=== PATIENT | female | born 1940 | race Caucasian/White ===

== ENCOUNTER → 2017-07-26 07:46 | Outpatient (CLI) | payer MEDICARE, OTHER, SELFPAY ==
[2017-07-26 10:55] LABS: Cholesterol 200 mg/dL (200); High Density Lipoprotein 77 mg/dL; Triglycerides 105 mg/dL; Very Low Density Lipoprotein 21 mg/dL (5-40)
== END ==
PROVIDERS: Family Provider Family Medicine; PCP Family Medicine; Visit Provider Family Medicine
DX: E78.00 Pure hypercholesterolemia, unspecified (principal)
CPT/HCPCS: 36415; 80061

== ENCOUNTER → 2017-08-02 12:47 | Outpatient (CLI) | payer MEDICARE, OTHER, SELFPAY ==
--- NOTE | 2017-08-02 12:49 | BI_ITS ---
MAMMOGRAPHY - BILATERAL SCREENING REASON FOR EXAM: Female, 77 years old. Routine annual screening examination. PERTINENT HISTORY: Mother with breast cancer. TECHNIQUE: Digital bilateral breast david (3D mammographic acquisition) in the CC and MLO projections. 2-D mediolateral oblique (MLO) and craniocaudad (CC) views of both breasts were obtained. CAD: Full Field Digital Mammography with Computer Added Detection was performed. COMPARISON: Comparison is made with prior study dated May 30, 2014 and May 08, 2013. FINDINGS: Breast Composition: There are scattered areas of fibroglandular density. There are no dominant masses or suspicious calcifications. A tissue clip marker is once again seen in the upper outer aspect of the left breast. Stable residual nodular density at the biopsy site. No other significant abnormalities are identified. There has been no significant change since the prior study. BI/SCREENING MAMM (CAD), BILAT IMPRESSION: Stable bilateral screening mammogram. Yearly follow-up mammogram recommended. (A) ASSESSMENT CATEGORY: BIRADS Category 2: Benign. A letter regarding these results will be sent to the patient by the facility within 30 days. Approximately 10% of breast cancers are not detected by mammography. A normal mammogram should not delay biopsy of a clinically suspicious abnormality. [id number] Electronically Signed: Norman Martinez MD at 15:33 EDT Tel [phone], Service support ,
== END ==
PROVIDERS: Family Provider Family Medicine; PCP Family Medicine; Visit Provider Family Medicine
DX: Z12.31 Encounter for screening mammogram for malignant neoplasm of breast (principal)
CPT/HCPCS: 77063; 77067

== ENCOUNTER → 2018-07-25 07:40 | Outpatient (CLI) | payer MEDICARE, OTHER, SELFPAY ==
[2018-05-28 10:03] VITALS: BMI 22.6
[2018-07-25 10:07] LABS: Absolute Lymphocyte Count 1.67 X10^3/ul (0.83-4.51); Absolute Neutrophil Count 2.4 X10^3/uL (2.0-7.7); Basophil# 0.05 X10^3/uL; Basophil% 1.1 % (0-1); Eosinophils% 2.2 % (0-5); Hemoglobin 13.9 g/dl (12.0-15.0); Lymphocyte # 1.67 X10^3/ul (4.0); Mean Corp Hgb Conc 32.3 g/gl (32-36); Mean Corpuscular Hgb 31.3 pg (27.0-32.0); Mean Corpuscular Volume 96.8 fL (81-99); Mean Platelet Vol. 10.5 fl (6.2-12.0); Monocyte% 6.7 % (0-10); Neutrophil # 2.38 X10^3/uL (2.7-7.7); Neutrophil % 52.8 % (47-70); POSITIVE COUNT NO; POSITIVE DIFFERENTIAL NO; POSITIVE MORPHOLOGY NO; Platelet Count 292 K/mm3 (150-450); RBC Distribution Width CV 13.7 % (11.6-14.6); Red Blood Count 4.44 M/mm3 (4.2-5.4); White Blood Count 4.5 K/mm3 (4.4-11.0)
[2018-07-25 10:30] LABS: Vitamin D,25 Hydroxy 55.8 ng/mL (29.95-100.01)
[2018-07-25 10:34] LABS: Anion Gap 7 (5-15); BUN 18 mg/dL (7-18); BUN/Creat Ratio 22.8 RATIO (10-20); Chloride 106 mmol/L (98-107); Cholesterol 193 mg/dL (200); Creatinine, Serum 0.79 mg/dL (0.55-1.02); EST Glomerular Filtration Rate 75 mL/min (>60); Est Glom Filt Rate - Afr Amer 90 mL/min (>60); Glucose 88 mg/dL (74-106); High Density Lipoprotein 86 mg/dL; Potassium 4.2 mmol/L (3.5-5.1); Sodium Level 143 mmol/L (136-145); Triglycerides 65 mg/dL; Very Low Density Lipoprotein 13 mg/dL (5-40)
== END ==
PROVIDERS: Family Provider Family Medicine; PCP Family Medicine; Referring Provider Family Medicine; Visit Provider Family Medicine
DX: Z00.00 Encounter for general adult medical examination without abnormal findings (principal); E78.00 Pure hypercholesterolemia, unspecified
CPT/HCPCS: 36415; 80048; 80061; 82306; 85025

== ENCOUNTER 2018-10-02 01:58 | Emergency (ER) | payer MEDICARE, OTHER, SELFPAY ==
[2018-09-10 09:15] VITALS: BMI 22.6
[2018-10-02 02:00] VITALS: BP 152/86; PULSE 89; RESP 16; TEMP 36.9; O2SAT 98; BMI 22.6
--- NOTE | 2018-10-02 02:20 | RAD_ITS ---
STUDY: X-RAY CHEST REASON FOR EXAM: Female, 78 years old. Insomnia TECHNIQUE: 2 view COMPARISON: None. FINDINGS: The lungs are clear and expanded. There is no demonstrated pleural abnormality. Normal size heart. Normal mediastinum and hussein. Normal visualized pulmonary arteries. Normal visualized aortic arch and descending thoracic aorta. Normal visualized thoracic spine. Normal visualized ribs, clavicles, and shoulders. There is no demonstrated abnormality of the visualized soft tissue structures of the upper abdomen. RAD/Chest PA and Lateral IMPRESSION: Normal x-ray examination of the chest. No acute findings in the lungs Electronically Signed: Robinson Murray MD at 3:14 EDT Tel , Service support ,
--- NOTE | 2018-10-02 02:20 | EKG12_ITS ---
Test Reason : DYSRHYTHMIA Blood Pressure : / mmHG Vent. Rate : 078 BPM Atrial Rate : 078 BPM P-R Int : 198 ms QRS Dur : 070 ms QT Int : 356 ms P-R-T Axes : 063 036 032 degrees QTc Int : 405 ms Normal sinus rhythm Normal ECG Confirmed by DIOGO ELAM, MICHAEL ([id number]), city editor JESSE AWAD ([id number]) on 10/03/2018 11:58:29 AM Referred By: MELISSA Confirmed By:MICHAEL LIND MD
--- NOTE | 2018-10-02 02:22 | ED.VIS.GEN ---
History of Present Illness Chief Complaint: Other, Pain/Inj Narrative: Patient is an 78-year-old female who presents with multiple complaints. She states that last night after eating a BLT she has had a lot of belching. Tonight she had pain across her upper back and shoulder blades similar to prior episodes related to her fibromyalgia. She then developed some tremor and shaking. She complains of a dry mouth. While she was laying on her side she had some tingling in her feet. She denies any history of prior similar symptoms. She denies chest pain. She states she did feel a little lightheaded. She did not feel short of breath but states she felt like she needed to take a deep breath. Past Medical History - Allergies and Home Meds Allergies/Adverse Reactions: Allergies adhesive tape Allergy (Verified 10/02/18 02:06) Other CAUSES BLISTERING amoxicillin Adverse Reaction (Verified 10/02/18 02:06) Abd cramps/diarrhea dactinomycin Adverse Reaction (Verified 10/02/18 02:06) Abd cramps/diarrhea gabapentin Adverse Reaction (Verified 10/02/18 02:06) Abd cramps/diarrhea nortriptyline Adverse Reaction (Verified 10/02/18 02:06) Abd cramps/diarrhea pregabalin [From Lyrica] Adverse Reaction (Verified 10/02/18 02:06) Other VERY SLEEPY tramadol Adverse Reaction (Verified 10/02/18 02:06) Abd cramps/diarrhea Primary Care Physician: Roman Pulido MD [Primary Care Provider] - Past Medical History: - - High cholesterol, fibromyalgia, irritable bowel syndrome Surgical History: - - Right hip total arthroplasty, h/o left hip replacement 1 yr ago. Smoking Status: Former smoker Review of Systems All systems negative except as indicated General: Denies: Fever Cardiovascular: Denies: Chest pain Respiratory: Denies: Dyspnea Gastrointestinal: Denies: Nausea, Vomiting Musculoskeletal: Reports: Neck pain, Back pain Physical Exam Vital Signs/Narrative: Vital Signs Temp Pulse Resp BP Pulse Ox 10/02/18 02:00 98.5 F 89 16 152/86 H 98 General: Well nourished Head: Normocephalic Eyes: EOMI ENT: Moist mucous membranes Neck: Supple Cardiovascular: Regular rate, Regular rhythm Respiratory: No distress, CTA bilaterally Abdomen: Soft, Nontender Skin: Normal color Neurological: Alert, Normal Strength, Normal Sensation Psychological: Normal affect Diagnostic/Tx/Re-eval Impressions Chest X-Ray 10/02/18 02:20 IMPRESSION: Normal x-ray examination of the chest. No acute findings in the lungs Electronically Signed: Robinson Murray MD at 3:14 EDT Tel , Service support , 10/02/18 02:20 Chest PA and Lateral [RAD] Stat Laboratory Results 10/02/18 10/02/18 02:05 02:05 WBC 7.4 RBC 4.66 Hgb 14.7 Hct 45.0 MCV 96.6 MCH 31.5 MCHC 32.7 RDW Std Deviation 48.2 H RDW Coeff of Orqu[place] 13.5 Plt Count 308 MPV 10.2 Immature Gran % (Auto) 0.100 Neut % (Auto) 50.1 Lymph % (Auto) 39.9 Power % (Auto) 7.7 Eos % (Auto) 1.5 Baso % (Auto) 0.7 Absolute Neuts (auto) 3.7 Absolute Lymphs (auto) 2.94 Nucleated RBC % 0 Sodium 142 Potassium 3.8 Chloride 108 H Carbon Dioxide 28.0 Anion Gap 6 BUN 19 H Creatinine 0.88 Estim Creat Clear Calc 47.73 Est GFR (MDRD) Af Amer 79 Est GFR (MDRD) Non-Af 66 BUN/Creatinine Ratio 21.6 H Glucose 114 H Calcium 9.0 Troponin I < 0.015 - Medical Decision Making EKG shows normal sinus rhythm at a rate of 78 with no acute ischemic changes, normal intervals, normal axis. Labs are unremarkable, negative troponin. Chest x-ray is normal. Patient presented with vague complaints. She does not appear to have acute serious life-threatening or surgical pathology. Some of her symptoms may be related to anxiety. She was advised to follow-up with her primary care physician. She understands return for new or worsening symptoms. She was discharged. ED Disposition - Plan for ED Patient: Disposition: Home or Assisted Living Diagnosis: Back pain, Tremor Instructions: BACK PAIN (Acute or Chronic), Paraesthesias Referrals: Roman Pulido MD [Primary Care Provider] -
[2018-10-02 02:28] LABS: Absolute Lymphocyte Count 2.94 X10^3/uL (0.83-4.51); Absolute Neutrophil Count 3.7 X10^3/uL (2.0-7.7); Basophil# 0.05 X10^3/uL; Basophil% 0.7 % (0-1); Eosinophil# 0.11 X10^3/uL; Eosinophils% 1.5 % (0-5); Hemoglobin 14.7 g/dL (12.0-15.0); Lymphocyte # 2.94 X10^3/ul (4.0); Lymphocyte % 39.9 % (19-41); Mean Corp Hgb Conc 32.7 g/dL (32-36); Mean Corpuscular Hgb 31.5 pg (27.0-32.0); Mean Corpuscular Volume 96.6 fL (81-99); Mean Platelet Vol. 10.2 fl (6.2-12.0); Monocyte# 0.57 X10^3/uL; Monocyte% 7.7 % (0-10); NRBC Flagged by Analyzer 0 % (0-5); Neutrophil # 3.68 X10^3/uL (2.7-7.7); Neutrophil % 50.1 % (47-70); Platelet Count 308 K/mm3 (150-450); RBC Distribution Width CV 13.5 % (11.6-14.6); RBC Distribution Width SD 48.2 fl (35.1-43.9); Red Blood Count 4.66 M/mm3 (4.2-5.4); White Blood Count 7.4 K/mm3 (4.4-11.0)
[2018-10-02] MEDS: Mag Hydrox/Al Hydrox/Simeth 30 ML UDC PO (02:28)
[2018-10-02 02:30] VITALS: BP 163/92; PULSE 85; O2SAT 97
[2018-10-02 02:39] LABS: Anion Gap 6 (5-15); BUN 19 mg/dL (7-18); BUN/Creat Ratio 21.6 RATIO (10-20); Chloride 108 mmol/L (98-107); Creatinine, Serum 0.88 mg/dL (0.55-1.02); EST Glomerular Filtration Rate 66 mL/min (>60); Est Glom Filt Rate - Afr Amer 79 mL/min (>60); Estimated Creatinine Clearance 47.73 ml/min; Glucose 114 mg/dL (74-106); Potassium 3.8 mmol/L (3.5-5.1); Sodium Level 142 mmol/L (136-145)
[2018-10-02 03:46] VITALS: BP 164/80; PULSE 84; RESP 18; O2SAT 98
== END 2018-10-02 03:47 | disposition home or self-care (01) ==
PROVIDERS: Emergency Provider Emergency Medicine; Family Provider Family Medicine; PCP Family Medicine
DX: M54.9 Dorsalgia, unspecified (principal); M54.2 Cervicalgia; R25.1 Tremor, unspecified; E78.00 Pure hypercholesterolemia, unspecified; K58.9 Irritable bowel syndrome, unspecified; M79.7 Fibromyalgia; R42 Dizziness and giddiness; R68.2 Dry mouth, unspecified; Z79.899 Other long term (current) drug therapy; Z88.0 Allergy status to penicillin; Z88.8 Allergy status to other drugs, medicaments and biological substances; Z87.891 Personal history of nicotine dependence
CPT/HCPCS: 71046; 80048; 84484; 85025; 93005; 99285; A4216

== ENCOUNTER → 2019-07-31 08:00 | Outpatient (CLI) | payer MEDICARE, OTHER, SELFPAY ==
[2019-07-31 10:39] LABS: Vitamin D,25 Hydroxy 76.6 ng/mL
[2019-07-31 10:46] LABS: ALB/GLOB Ratio 1.1 RATIO (0.9-2.4); AST(SGOT) 19 U/L (15-37); Alanine Aminotransfer ALT/SGPT 20 U/L (13-56); Albumin, Serum 3.5 g/dL (3.2-5.0); Alkaline Phosphatase 84 U/L (45-117); Anion Gap 3 (5-15); BUN 18 mg/dL (7-18); BUN/Creat Ratio 22.4 RATIO (10-20); Calcium,Total 9.1 mg/dL (8.5-10.1); Chloride 106 mmol/L (98-107); Cholesterol 199 mg/dL (200); EST Glomerular Filtration Rate 73 mL/min (>60); Est Glom Filt Rate - Afr Amer 88 mL/min (>60); Globulin 3.3 g/dL (2.2-4.2); Glucose 90 mg/dL (74-106); High Density Lipoprotein 83 mg/dL; Potassium 4.1 mmol/L (3.5-5.1); Protein, Total 6.8 g/dL (6.4-8.2); Sodium Level 141 mmol/L (136-145); Triglycerides 103 mg/dL; Very Low Density Lipoprotein 21 mg/dL (5-40)
== END ==
PROVIDERS: PCP Family Medicine; Referring Provider Family Medicine; Visit Provider Family Medicine
DX: E78.00 Pure hypercholesterolemia, unspecified (principal); E55.9 Vitamin D deficiency, unspecified; R42 Dizziness and giddiness
CPT/HCPCS: 36415; 80053; 80061; 82306

== ENCOUNTER → 2019-08-14 08:42 | Outpatient (CLI) | payer MEDICARE, OTHER, SELFPAY ==
--- NOTE | 2019-08-14 08:52 | BD_ITS ---
STUDY: DUAL ENERGY X-RAY ABSORPTIOMETRY / DXA REASON FOR EXAM: Female, 79 years old. 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 COMPARISON: None. FINDINGS: Right Forearm: g/cm2 (0.621) / T-score (-3.0) / Z-score (-0.2) Left Forearm: g/cm2 (0.615) / T-score (minus 3.) / Z-score (-0.2) BD/Dexa Bone Density/Append Skel IMPRESSION: The patient is considered osteoporotic as outlined below according to World [place] Organization (WHO) criteria with a high fracture risk. Reference Information: The T-score is the number of standard deviations above or below the standard which is normal for young adults at their peak bone mineral density. The World Health Organization (WHO) interprets the T-scores as follows: Above -1 Normal bone density Between -1 and -2.5 Osteopenia Equal to / or below -2.5 Osteoporosis As a practical clinical guideline, osteopenia may be graded as follows: Mild -1 through -1.5 Moderate -1.6 through -2.0 Severe -2.1 through -2.4 The Z-score is the number of standard deviations above or below age-matched controls. A Z-score of less than -1.5 would be considered abnormal. References: 1. NIH Osteoporosis and Related Bone Diseases http://www.osteo.org 2. International Society for Clinical Densitometry http://www.iscd.org 3. National Osteoporosis Foundation http://www.nof.org Electronically Signed: Norman Martinez, at 13:35 EDT , Service support ,
== END ==
PROVIDERS: PCP Family Medicine; Referring Provider Family Medicine; Visit Provider Family Medicine
DX: Z00.00 Encounter for general adult medical examination without abnormal findings (principal); M81.0 Age-related osteoporosis without current pathological fracture; Z78.0 Asymptomatic menopausal state
CPT/HCPCS: 77081

== ENCOUNTER 2020-03-06 11:59 | Outpatient (RCR) | payer MEDICARE, OTHER, SELFPAY | END 2020-03-06 23:59 | LOC: IMMUN 11:59 | PROVIDERS: PCP Family Medicine; Visit Provider Family Medicine | DX: Z23 Encounter for immunization (principal) | CPT/HCPCS: 0011A; 0012A; 91301 ==

== ENCOUNTER 2020-06-01 09:41 | Emergency (ER) | payer MEDICARE, OTHER, SELFPAY ==
[2020-06-01 09:44] VITALS: BP 180/71; PULSE 80; RESP 16; TEMP 36.7; O2SAT 98; BMI 22.3
[2020-06-01 10:06] VITALS: BP 148/77; BP 161/90; BP 170/83; PULSE 83; PULSE 86; PULSE 92
--- NOTE | 2020-06-01 10:25 | CT_ITS ---
STUDY: CT BRAIN WITHOUT CONTRAST REASON FOR EXAM: Female, 80 years old. Dizziness RADIATION DOSAGE (If Supplied By Facility): CTDIvol = ( 44.99 ) mGy, DLP = ( 796.11 ) mGycm TECHNIQUE: Transaxial CT imaging of the brain was performed without administration of intravenous contrast material. Individualized dose optimization techniques were used for this CT. COMPARISON: No relevant priors. FINDINGS: Normal soft tissue structures. Normal calvarium. There is mild cerebral atrophy with widening of the extra-axial spaces and ventricular dilatation. There are areas of decreased attenuation within the white matter tracts of the supratentorial brain, consistent with microvascular disease changes. There are small punctate calcifications of the basal ganglia which are seen in the aging brain as a normal variant. Old lacunar infarct in the left thalamus. Normal brainstem. Normal cerebellum. There is no intracranial hemorrhage. There are no findings of an acute ischemic infarction. Atherosclerotic calcification of the cavernous portion of the internal carotid arteries bilaterally. Normal visualized paranasal sinuses. CT/Brain/Head without Contrast IMPRESSION: Chronic involutional changes of the brain. Electronically Signed: Norman Martinez MD at 11:58 EDT , Service support ,
--- NOTE | 2020-06-01 10:25 | EKG12_ITS ---
Test Reason : DIZZINESS Blood Pressure : / mmHG Vent. Rate : 075 BPM Atrial Rate : 075 BPM P-R Int : 200 ms QRS Dur : 084 ms QT Int : 350 ms P-R-T Axes : 069 029 058 degrees QTc Int : 390 ms Normal sinus rhythm Nonspecific ST and T wave abnormality Abnormal ECG Confirmed by DIOGO ELAM, MICHAEL ([id number]), content editor JESSE AWAD ([id number]) on 06/03/2020 8:59:31 AM Referred By: KENDRA/CECY Confirmed By:MICHAEL LIND MD
--- NOTE | 2020-06-01 10:27 | ED.DCSUM_ITS ---
History of Present Illness Chief Complaint: Dizziness Informant: Patient Narrative: 80-year-old female states she went to bed last night in her normal state of health. When she woke this morning she rolled over onto her side and open her eyes and noted that her vision seemed blurry. She closed her eyes and waited about 20 minutes. She got up and walked to the bathroom she states at one point she got lightheaded. She went and ate breakfast would have seconds of the sensation of lightheadedness. At the current time she feels cold. She states she has had problems with circulation in her hands and her feet recently and typically has to wear gloves very early in the fall season. She denies any headache. She denies any ataxia. No current visual changes. No arm or leg weakness or sensory changes - Past Medical History (1) Dyslipidemia Status: Chronic (2) GERD (gastroesophageal reflux disease) Status: Chronic Past Medical History - Allergies and Home Meds Allergies/Adverse Reactions: Allergies adhesive tape Allergy (Verified 06/01/20 09:48) Other CAUSES BLISTERING cefdinir Allergy (Verified 06/01/20 09:51) Other acetaminophen [From Vicodin] Adverse Reaction (Verified 06/01/20 09:51) Other DIZZINESS amoxicillin Adverse Reaction (Verified 06/01/20 09:48) Abd cramps/diarrhea dactinomycin Adverse Reaction (Verified 06/01/20 09:48) Abd cramps/diarrhea gabapentin Adverse Reaction (Verified 06/01/20 09:48) Abd cramps/diarrhea hydrocodone [From Vicodin] Adverse Reaction (Verified 06/01/20 09:51) Other DIZZINESS nortriptyline Adverse Reaction (Verified 06/01/20 09:48) Abd cramps/diarrhea pregabalin [From Lyrica] Adverse Reaction (Verified 06/01/20 09:48) Other VERY SLEEPY tramadol Adverse Reaction (Verified 06/01/20 09:48) Abd cramps/diarrhea Primary Care Physician: Joe Rousseau MD [Primary Care Provider] - 1-2 Days if not improving Surgical History: - - Right hip total arthroplasty, h/o left hip replacement 1 yr ago. Smoking Status: Never smoker Drugs: None Review of Systems General: Denies: Chills, Fever, Sweats Eyes: Reports: Blurred Vision - bilaterally. Denies: Visual changes - bilaterally, Diplopia ENT: Denies: Rhinorrhea, Sore throat Cardiovascular: Denies: Chest pain, Palpitations Respiratory: Denies: Dyspnea, Cough, Dyspnea on exertion Gastrointestinal: Reports: - - Increased belching. Denies: Abdominal pain, Nausea, Vomiting, Diarrhea, Melena, Hematochezia Genitourinary: Denies: Dysuria, Hematuria, Frequency Musculoskeletal: Denies: Back pain, Extremity Pain Skin: Denies: Rash, Wounds Neurological: Reports: - - Lightheadedness. Denies: Headache, Weakness, Numbness Physical Exam Vital Signs/Narrative: Vital Signs Temp Pulse Pulse Pulse Pulse Resp BP 06/01/20 10:06 83 86 92 06/01/20 09:44 98.0 F 80 16 180/71 H BP BP BP Pulse Ox 06/01/20 10:06 148/77 H 161/90 H 170/83 H 06/01/20 09:44 98 Inital Vital Signs reviewed: Yes General: Well nourished, Well developed, No Acute Distress Head: Normocephalic, Atraumatic Eyes: Perrl, EOMI ENT: Moist mucous membranes, No rhinorrhea Neck: Supple, Nontender Cardiovascular: Regular rate, Regular rhythm, No murmurs Respiratory: No distress, CTA bilaterally, Chest nontender Abdomen: Soft, Nontender, Nondistended, Normal bowel sounds Back: Nontender, Normal Inspection Extremities: Nontender, No edema Skin: Normal color, No rash Neurological: Alert, Oriented x3, Cranial nerves II-XII grossly intact, Normal Strength, Normal Sensation, - - NIH of 0. Very normal hspdlh-vw-wonh and heel mcnair Psychological: Normal affect, Normal Mood Diagnostic/Tx/Re-eval Clinical Impression(s) from Imaging Studies Brain CT 06/01/20 10:25 IMPRESSION: Chronic involutional changes of the brain. Electronically Signed: Norman Martinez MD at 11:58 EDT , Service support , Chest X-Ray 06/01/20 11:27 IMPRESSION: Hyperinflation. Electronically Signed: Norman Martinez MD at 11:59 EDT , Service support , Laboratory Last Values WBC 6.7 K/mm3 (4.4-11.0) 06/01/20 10:00 RBC 4.58 M/mm3 (4.2-5.4) 06/01/20 10:00 Hgb 14.8 g/dL (12.0-15.0) 06/01/20 10:00 Hct 45.3 % (37-47) 06/01/20 10:00 MCV 98.9 fL (81-99) 06/01/20 10:00 MCH 32.3 pg (27.0-32.0) H 06/01/20 10:00 MCHC 32.7 g/dL (32-36) 06/01/20 10:00 RDW Std Deviation 49.1 fl (35.1-43.9) H 06/01/20 10:00 RDW Coeff of [place]qu[place] 13.3 % (11.6-14.6) 06/01/20 10:00 Plt Count 322 K/mm3 (150-450) 06/01/20 10:00 MPV 10.6 fl (6.2-12.0) 06/01/20 10:00 Immature Gran % (Auto) 0.300 % (0.0-0.9) 06/01/20 10:00 Neut % (Auto) 75.2 % (47-70) H 06/01/20 10:00 Lymph % (Auto) 17.6 % (19-41) L 06/01/20 10:00 [place] % (Auto) 5.2 % (0-10) 06/01/20 10:00 Eos % (Auto) 1.3 % (0-5) 06/01/20 10:00 Baso % (Auto) 0.4 % (0-1) 06/01/20 10:00 Absolute Neuts (auto) 5.0 X10^3/uL (2.0-7.7) 06/01/20 10:00 Absolute Lymphs (auto) 1.18 X10^3/uL (0.83-4.51) 06/01/20 10:00 Nucleated RBC % 0 % (0-5) 06/01/20 10:00 Sodium 140 mmol/L (136-145) 06/01/20 10:00 Potassium 4.0 mmol/L (3.5-5.1) 06/01/20 10:00 Chloride 104 mmol/L (98-107) 06/01/20 10:00 Carbon Dioxide 32.0 mmol/L (21.0-32.0) 06/01/20 10:00 Anion Gap 4 (5-15) L 06/01/20 10:00 BUN 18 mg/dL (7-18) 06/01/20 10:00 Creatinine 0.83 mg/dL (0.55-1.02) 06/01/20 10:00 Estim Creat Clear Calc 48.92 ml/min 06/01/20 10:00 Est GFR (MDRD) Af Amer 85 mL/min (>60) 06/01/20 10:00 Est GFR (MDRD) Non-Af 70 mL/min (>60) 06/01/20 10:00 BUN/Creatinine Ratio 21.7 RATIO (10-20) H 06/01/20 10:00 Glucose 117 mg/dL (74-106) H 06/01/20 10:00 Calcium 9.3 mg/dL (8.5-10.1) 06/01/20 10:00 Total Bilirubin 0.40 mg/dL (0.20-1.00) 06/01/20 10:00 AST 18 U/L (15-37) 06/01/20 10:00 ALT 20 U/L (13-56) 06/01/20 10:00 Alkaline Phosphatase 89 U/L (45-117) 06/01/20 10:00 Troponin I < 0.015 ng/mL (<0.045) 06/01/20 10:00 Total Protein 7.0 g/dL (6.4-8.2) 06/01/20 10:00 Albumin 3.6 g/dL (3.2-5.0) 06/01/20 10:00 Globulin 3.4 g/dL (2.2-4.2) 06/01/20 10:00 Albumin/Globulin Ratio 1.1 RATIO (0.9-2.4) 06/01/20 10:00 Urine Color Yellow (Yellow) 06/01/20 11:22 Urine Clarity Clear (Clear) 06/01/20 11:22 Urine pH 6.0 (5.0 - 8.0) 06/01/20 11:22 Ur Specific [place] 1.010 (1.002-1.030) 06/01/20 11:22 Urine Protein Negative mg/dl (Negative) 06/01/20 11:22 Urine Glucose (UA) Normal mg/dl (Normal) 06/01/20 11:22 Urine Ketones Negative mg/dl (Negative) 06/01/20 11:22 Urine Occult Blood Negative /ul (Negative) 06/01/20 11:22 Urine Nitrite Negative (Negative) 06/01/20 11:22 Urine Bilirubin Negative mg/dL (Negative) 06/01/20 11:22 Urine Urobilinogen Normal mg/dl (Normal) 06/01/20 11:22 Ur Leukocyte Esterase 25 /ul (Negative) H 06/01/20 11:22 Urine RBC 0 SEEN /hpf (0-5) 06/01/20 11:22 Urine WBC 0-5 SEEN /hpf (0-5) 06/01/20 11:22 Ur Squamous Epith Cells 0 SEEN /hpf (5-10) 06/01/20 11:22 Urine Bacteria 0 SEEN /hpf (None Seen) 06/01/20 11:22 Urine Mucus 0 SEEN /hpf (<or=2+) 06/01/20 11:22 - EKG Initial EKG Interpretation: Sinus Rhythm - EKG demonstrates a normal sinus rhythm at a rate of 75. No concerning features of ACS or ectopy noted - Medical Decision Making Patient states that coming off the CT table when she sat up she suddenly got dizzy again but again it only lasted a couple seconds. States she continues to feel chilled. The patient also states that she walked to the bathroom when she put her head down she got dizzy/lightheaded but again only for a second or 2. She received Antivert she ambulated again to the bathroom without any significant difficulty. At this point her symptoms are very transient. I do not see anything on her work-up. I think she is safe for discharge. ED Disposition - Plan for ED Patient: Disposition: Home or Assisted Living Diagnosis: Light-headed feeling Instructions: ED Dizziness, Uncertain Cause Prescriptions: Meclizine HCl [Antivert] 25 mg PO TID PRN PRN #12 tablet PRN Reason: Dizziness Prescription Printed Referrals: Joe Rousseau MD [Primary Care Provider] - 1-2 Days if not improving
[2020-06-01 10:49] LABS: Absolute Lymphocyte Count 1.18 X10^3/uL (0.83-4.51); Basophil# 0.03 X10^3/uL; Basophil% 0.4 % (0-1); Eosinophil# 0.09 X10^3/uL; Eosinophils% 1.3 % (0-5); Hematocrit 45.3 % (37-47); Hemoglobin 14.8 g/dL (12.0-15.0); Lymphocyte # 1.18 X10^3/ul (0.83-4.51); Lymphocyte % 17.6 % (19-41); Mean Corp Hgb Conc 32.7 g/dL (32-36); Mean Corpuscular Hgb 32.3 pg (27.0-32.0); Mean Corpuscular Volume 98.9 fL (81-99); Mean Platelet Vol. 10.6 fl (6.2-12.0); Monocyte# 0.35 X10^3/uL; Monocyte% 5.2 % (0-10); NRBC Flagged by Analyzer 0 % (0-5); Neutrophil # 5.03 X10^3/uL (2.7-7.7); Neutrophil % 75.2 % (47-70); Platelet Count 322 K/mm3 (150-450); RBC Distribution Width CV 13.3 % (11.6-14.6); RBC Distribution Width SD 49.1 fl (35.1-43.9); Red Blood Count 4.58 M/mm3 (4.2-5.4); White Blood Count 6.7 K/mm3 (4.4-11.0)
[2020-06-01 11:10] LABS: ALB/GLOB Ratio 1.1 RATIO (0.9-2.4); AST(SGOT) 18 U/L (15-37); Alanine Aminotransfer ALT/SGPT 20 U/L (13-56); Albumin, Serum 3.6 g/dL (3.2-5.0); Alkaline Phosphatase 89 U/L (45-117); Anion Gap 4 (5-15); BUN 18 mg/dL (7-18); BUN/Creat Ratio 21.7 RATIO (10-20); Calcium,Total 9.3 mg/dL (8.5-10.1); Chloride 104 mmol/L (98-107); Creatinine, Serum 0.83 mg/dL (0.55-1.02); EST Glomerular Filtration Rate 70 mL/min (>60); Est Glom Filt Rate - Afr Amer 85 mL/min (>60); Estimated Creatinine Clearance 48.92 ml/min; Globulin 3.4 g/dL (2.2-4.2); Glucose 117 mg/dL (74-106); Sodium Level 140 mmol/L (136-145)
[2020-06-01 11:25] LABS: Bacteria 0 SEEN /hpf (None Seen); Mucous, Urine 0 SEEN /hpf (<or=2+); Red Blood Cells-Urine 0 SEEN /hpf (0-5); Squamous Epithelial Cells - UA 0 SEEN /hpf (5-10)
--- NOTE | 2020-06-01 11:27 | RAD_ITS ---
STUDY: X-RAY CHEST REASON FOR EXAM: Female, 80 years old. Dizziness TECHNIQUE: Single AP portable view of the chest. COMPARISON: Comparison is made with prior study dated 10/02/2018. FINDINGS: EKG electrodes are seen. Hyperinflation. The lungs are clear. There is no demonstrated pleural abnormality. Normal size heart. Normal mediastinum and hussein. Normal visualized pulmonary arteries. Normal visualized aortic arch and descending thoracic aorta. Normal visualized thoracic spine. There is degenerative osteoarthritis of the bilateral shoulders. There is no demonstrated abnormality of the visualized soft tissue structures of the upper abdomen. RAD/Chest 1 View (Portable) IMPRESSION: Hyperinflation. Electronically Signed: Norman Martinez MD at 11:59 EDT , Service support ,
[2020-06-01 11:30] LABS: Color, Urine Yellow (Yellow); Glucose, Dipstick Normal (Normal); Ketone-Dipstick Negative (Negative); Leukocyte Esterase-Dipstick 25 /ul (Negative); Nitrite-Dipstick Negative (Negative); Occult Blood-Urine Negative /ul (Negative); Protein-Dipstick Negative (Negative); Urine Bilirubin Dipstick Negative (Negative); Urine Clarity Clear (Clear); Urine Urobilinogen Normal (Normal)
[2020-06-01 11:37] LABS: White Blood Cells 0-5 SEEN /hpf (0-5)
[2020-06-01 12:25] VITALS: BP 158/72; PULSE 78; RESP 18; O2SAT 100
[2020-06-01] MEDS: Meclizine HCl 25 MG Tablet PO (12:57)
[2020-06-01 14:49] VITALS: BP 146/70; PULSE 85; RESP 18; O2SAT 98
[2020-06-01 15:35] VITALS: BP 148/71; PULSE 74; RESP 18
== END 2020-06-01 15:40 | disposition home or self-care (01) ==
PROVIDERS: Emergency Provider Emergency Medicine; PCP Family Medicine
DX: R42 Dizziness and giddiness (principal); E78.5 Hyperlipidemia, unspecified; Z79.899 Other long term (current) drug therapy
CPT/HCPCS: 70450; 71045; 80053; 81001; 84484; 85025; 93005; 99285; A4216

== ENCOUNTER → 2020-07-30 08:06 | Outpatient (CLI) | payer MEDICARE, OTHER, SELFPAY ==
[2020-07-30 10:20] LABS: Vitamin D,25 Hydroxy 67.7 ng/mL
[2020-07-30 10:29] LABS: Anion Gap 5 (5-15); BUN 22 mg/dL (7-18); BUN/Creat Ratio 26.5 RATIO (10-20); Calcium,Total 8.9 mg/dL (8.5-10.1); Chloride 105 mmol/L (98-107); Cholesterol 221 mg/dL (200); Creatinine, Serum 0.83 mg/dL (0.55-1.02); EST Glomerular Filtration Rate 70 mL/min (>60); Est Glom Filt Rate - Afr Amer 85 mL/min (>60); Glucose 89 mg/dL (74-106); High Density Lipoprotein 87 mg/dL; Potassium 3.7 mmol/L (3.5-5.1); Sodium Level 141 mmol/L (136-145); Triglycerides 85 mg/dL; Very Low Density Lipoprotein 17 mg/dL (5-40)
== END ==
PROVIDERS: PCP Family Medicine; Referring Provider Family Medicine; Visit Provider Family Medicine
DX: E78.00 Pure hypercholesterolemia, unspecified (principal); E55.9 Vitamin D deficiency, unspecified
CPT/HCPCS: 36415; 80048; 80061; 82306

== ENCOUNTER → 2020-10-09 | Outpatient (CLI) | payer MEDICARE, OTHER, SELFPAY ==
[2020-10-09 15:32] LABS: Bacteria 0 SEEN /hpf (None Seen); Mucous, Urine 0 SEEN /hpf (<or=2+); Red Blood Cells-Urine 0 SEEN /hpf (0-5); Squamous Epithelial Cells - UA 0 SEEN /hpf (5-10); White Blood Cells 0 SEEN /hpf (0-5)
[2020-10-09 15:49] LABS: Color, Urine Yellow (Yellow); Glucose, Dipstick Normal (Normal); Ketone-Dipstick Negative (Negative); Leukocyte Esterase-Dipstick Negative /ul (Negative); Nitrite-Dipstick Negative (Negative); Occult Blood-Urine Negative /ul (Negative); Protein-Dipstick Negative (Negative); Urine Bilirubin Dipstick Negative (Negative); Urine Clarity Clear (Clear); Urine Urobilinogen Normal (Normal)
== END | disposition home or self-care (01) ==
PROVIDERS: PCP Family Medicine; Visit Provider Physician Assistant Surgical
DX: R53.81 Other malaise (principal)
CPT/HCPCS: 81001; 87086; 87088

== ENCOUNTER → 2020-11-12 13:20 | Outpatient (CLI) | payer MEDICARE, OTHER, SELFPAY ==
--- NOTE | 2020-11-12 13:22 | BI_ITS ---
MAMMOGRAPHY - BILATERAL SCREENING 3-D TOMOSYNTHESIS REASON FOR EXAM: Female, 80 years old. SCREENING PERTINENT HISTORY: No significant family history. TECHNIQUE: 2-D mammograms and 3-D Tomosynthesis of the breast (s) were performed. CAD was performed. COMPARISON: 08/02/2017 FINDINGS: The breast composition is composed of scattered fibroglandular density. Scattered benign calcifications are seen. No dense spiculated masses or suspicious microcalcifications are identified. No architectural distortion is identified. There is no skin thickening or retraction. There has been no significant change since the prior study. BI/SCRN MAMM (CAD)W/NICK BILAT IMPRESSION: No mammographic signs of malignancy. Routine yearly mammograms recommended. ASSESSMENT CATEGORY: BIRADS Category 1: Negative. A letter regarding these results will be sent to the patient by the facility within 30 days. FOLLOW UP RECOMMENDATION: Yearly follow up mammogram recommended. (A) Approximately 10% of breast cancers are not detected by mammography. A normal mammogram should not delay biopsy of a clinically suspicious abnormality. Electronically Signed: Luis Barrios MD at 18:19 EDT Tel , Service support ,
== END ==
PROVIDERS: PCP Family Medicine; Referring Provider Family Medicine; Visit Provider Family Medicine
DX: Z12.31 Encounter for screening mammogram for malignant neoplasm of breast (principal)
CPT/HCPCS: 77063; 77067

== ENCOUNTER 2021-02-10 08:07 | Outpatient (CLI) | payer MEDICARE, OTHER, SELFPAY ==
[2021-02-10 10:33] LABS: AST(SGOT) 18 U/L (15-37); Alanine Aminotransfer ALT/SGPT 21 U/L (13-56); Albumin, Serum 3.5 g/dL (3.2-5.0); Alkaline Phosphatase 68 U/L (45-117); Anion Gap 7 (5-15); BUN 18 mg/dL (7-18); Calcium,Total 9.1 mg/dL (8.5-10.1); Chloride 105 mmol/L (98-107); Cholesterol 212 mg/dL (200); Creatinine, Serum 0.78 mg/dL (0.55-1.02); EST Glomerular Filtration Rate 75 mL/min (>60); Est Glom Filt Rate - Afr Amer 91 mL/min (>60); Globulin 3.5 g/dL (2.2-4.2); Glucose 94 mg/dL (74-106); High Density Lipoprotein 92 mg/dL; Sodium Level 142 mmol/L (136-145); Triglycerides 65 mg/dL; Very Low Density Lipoprotein 13 mg/dL (5-40)
== END 2021-02-10 23:59 | disposition short-term general hospital (02) ==
LOC: MFPLAB 08:09
PROVIDERS: PCP Family Medicine; Referring Provider Family Medicine; Visit Provider Family Medicine
DX: Z00.00 Encounter for general adult medical examination without abnormal findings (principal); E78.00 Pure hypercholesterolemia, unspecified
CPT/HCPCS: 36415; 80053; 80061

== ENCOUNTER 2021-09-22 17:20 | Emergency (ER) | payer MEDICARE, OTHER, SELFPAY ==
[2021-09-22 17:21] VITALS: BP 186/94; PULSE 92; RESP 16; TEMP 36.2; O2SAT 98; BMI 21.3
--- NOTE | 2021-09-22 18:16 | EKG12_ITS ---
Test Reason : gen ill Blood Pressure : / mmHG Vent. Rate : 072 BPM Atrial Rate : 072 BPM P-R Int : 196 ms QRS Dur : 080 ms QT Int : 376 ms P-R-T Axes : 068 022 047 degrees QTc Int : 411 ms Normal sinus rhythm Normal ECG Confirmed by DIOGO ELAM, MICHAEL ([id number]), book or script editor JESSE AWAD ([id number]) on 09/24/2021 9:38:11 AM Referred By: Confirmed By:MICHAEL LIND MD
--- NOTE | 2021-09-22 18:17 | EDS_ITS ---
HPI History of Present Illness Chief Complaint: General Illness Narrative Narrative: 81-year-old female presents for evaluation of generalized weakness. She states she just feels blah. She states she woke up yesterday feeling this way and she tested herself for COVID. She states the test was negative. She went on about her day and felt much better yesterday. She states she had urinated about 10 times yesterday without dysuria or hematuria. She had 3 normal bowel movements. She has not had a fever, chills, cough. Patient states that today she woke up feeling well. She did spend some time outside pulling weeds. She states that later in the day she started to feel blah again. She states she went for a walk and states she had some mild shortness of breath. She does state that she has a faint pain on the right shoulder that now is radiating around the right side of her chest. She has had this all day. She is not sure if it is her fibromyalgia or not. She denies any cardiac history. [facility] Medical History Arthritis Chronic neck and back pain Knee pain Shoulder pain Home Medications Vitamin D3 1,000 units PO DAILY 08/01/13 [History Last Taken 08/01/13 08:00] multivitamin with folic acid 400 mcg tablet 1 tab PO DAILY 08/01/13 [History Last Taken 08/01/13 08:00] simvastatin 20 mg tablet 20 mg PO QODAY 08/01/13 [History Last Taken 07/31/13 22:00] acetaminophen 500 mg tablet 1,000 mg PO Q8 #90 tabs 12/28/16 [Rx Last Taken Unknown] celecoxib 200 mg capsule 200 mg PO DAILY 10/02/18 [History Last Taken Unknown] cholecalciferol (vitamin D3) 25 mcg (1,000 unit) capsule 1,000 unit PO DAILY 10/02/18 [History Last Taken Unknown] coenzyme Q10 100 mg capsule 100 mg PO DAILY 10/02/18 [History Last Taken Unknown] glucosam 750 mg-chondroi 100 mg-hyalur 1.65 mg-CF borate 108 mg tablet 1 ea PO DAILY 10/02/18 [History Last Taken Unknown] glucosamine sulf dipot chlr,msm,chond 550 mg-C 30 mg-dorota 1 mg capsule 1 ea PO BID 10/02/18 [History Last Taken Unknown] meclizine 25 mg tablet 25 mg PO TID PRN PRN Dizziness #12 tabs 06/01/20 [Rx Last Taken Unknown] Allergy/AdvReac Type Severity Reaction Status Date / Time adhesive tape Allergy Other Verified 09/22/21 17:21 cefdinir Allergy Other Verified 09/22/21 17:21 acetaminophen [From Vicodin] AdvReac Other Verified 09/22/21 17:21 amoxicillin AdvReac Abd Verified 09/22/21 17:21 cramps/diarrhea dactinomycin AdvReac Abd Verified 09/22/21 17:21 cramps/diarrhea gabapentin AdvReac Abd Verified 09/22/21 17:21 cramps/diarrhea hydrocodone [From Vicodin] AdvReac Other Verified 09/22/21 17:21 nortriptyline AdvReac Abd Verified 09/22/21 17:21 cramps/diarrhea pregabalin [From Lyrica] AdvReac Other Verified 09/22/21 17:21 tramadol AdvReac Abd Verified 09/22/21 17:21 cramps/diarrhea Family History Other Cancer Myocardial infarction Social History Smoking Status: Never smoker ROS ROS ED Constitutional Constitutional ED: Denies chills or fever(s) Eyes Eyes: Denies change in vision or diplopia ENT ENT ED: Denies ear pain or rhinorrhea Cardiovascular Cardiovascular: Reports chest pain Respiratory/Chest Respiratory/Chest: Reports dyspnea; Denies cough Gastrointestinal Gastrointestinal: Denies abdominal pain, constipation, diarrhea, melena, nausea or vomiting Genitourinary Genitourinary ED: Denies dysuria or hematuria Musculoskeletal Musculoskeletal: Denies arthralgias Integumentary Denies abscess Neurologic Neurologic: Denies headache(s) or paresthesias Psychiatric Psychiatric: Denies anxiety or depression EXAM Physical Exam Const Vital Signs: 09/22/21 17:21 09/22/21 17:34 09/22/21 18:19 Temperature 97.2 F L Temperature Source Temporal Pulse Rate 92 Respiratory Rate 16 Respiratory Effort Normal Non-Labored Respiratory Pattern Normal Blood Pressure 186/94 H Blood Pressure Mean 124 Pulse Ox 98 Oxygen Delivery Method Room Air Room Air Positive well nourished General Appearance ED: NAD; Negative for pallor HEENT Reports moist mucous membranes and dry mucous membranes Negative for trauma Mouth ED: Yes dry mucous membranes Mouth: dry mucous membranes Eyes PERRL and EOMs intact bilaterally Chest Wall inspection of chest normal Chest Narrative: Mild tenderness to palpation right side of chest. No crepitance or deformity. Equal symmetric breath sounds chest wall rise Resp normal respiratory effort and clear to auscultation bilaterally Auscultation: Negative for rales, rhonchi or wheezes Cardio regular rate and regular rhythm GI normal to inspection, nondistended, normoactive bowel sounds Neuro oriented x3, CN's II-XII intact bilaterally and no sensory deficits noted Sensorium / Orientation: alert Motor Exam: strength 5/5 throughout Psych mental status grossly normal Skin no rashes or lesions noted and no wounds General Skin Exam: Negative for jaundice or pallor MDM MDM MDM Narrative Medical decision making narrative: Patient presenting with feeling blah. She is well-appearing. She has normal vital signs. She has some vague pains in the right side of her chest and the right scapular region, that she will also was pulling weeds earlier today patien t reports a history of fibromyalgia as well. HEART score of 3. EKG on my interpretation shows a normal sinus rhythm with a ventricular rate of 72 bpm without sign of ischemic change or dysrhythmia. Chest x-ray on my interpretation shows no acute cardiopulmonary process the radiologist does agree. CBC and BMP are unremarkable. High-sensitivity troponin is 4 after pain all day long so I do not believe she needs a repeat troponin. She is PERC negative. Urinalysis is negative for infection. Rapid COVID is negative. At this point I feel the patient is stable for discharge. I counseled her to drink plenty of fluids. Instructed on stretching exercises and to alternate Tylenol ibuprofen as needed. Impression: 1. Chest pain?noncardiac 2. Right shoulder pain 3. History of fibromyalgia 4. Weakness Lab Data Attestation: I reviewed the patient's lab results. Labs: Laboratory Results - last 24 hr 09/22/21 09/22/21 09/22/21 18:21 18:21 18:50 WBC 7.7 RBC 4.54 Hgb 14.2 Hct 44.6 MCV 98.2 MCH 31.3 MCHC 31.8 L RDW Std Deviation 49.3 H RDW Coeff of [place] 13.5 Plt Count 300 MPV 10.9 Immature Gran % (Auto) 0.300 Neut % (Auto) 64.6 Lymph % (Auto) 26.0 [place] % (Auto) 7.5 Eos % (Auto) 1.0 Baso % (Auto) 0.6 Absolute Neuts (auto) 5.0 Absolute Lymphs (auto) 2.01 Nucleated RBC % 0 Sodium 143 Potassium 4.2 Chloride 105 Carbon Dioxide 30.0 Anion Gap 8 BUN 24 H Creatinine 0.83 Estim Creat Clear Calc 48.08 Est GFR (MDRD) Af Amer 84 Est GFR (MDRD) Non-Af 70 BUN/Creatinine Ratio 28.8 H Glucose 104 Calcium 9.4 Troponin I High Sens 4 Urine Color Yellow Urine Clarity Clear Urine pH 6.0 Ur Specific [place] 1.020 Urine Protein Negative Urine Glucose (UA) Normal Urine Ketones 15 H Urine Occult Blood Negative Urine Nitrite Negative Urine Bilirubin Negative Urine Urobilinogen Normal Ur Leukocyte Esterase 500 H Urine RBC 0 SEEN Urine WBC 5-10 SEEN Ur Squamous Epith Cells 0-5 SEEN Urine Bacteria 0 SEEN Urine Mucus 0 SEEN Radiography Diagnostic Testing: Clinical Impression(s) from Imaging Studies Chest X-Ray 09/22/21 18:36 IMPRESSION: No acute disease. 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 Electronically Signed: Asif Soares MD, CROW at 18:56 EDT Reading Location ID and State: [facility] / [place] Tel , Service support , Discharge Plan Triage Chief Complaint: General Illness ED Provider: Jose Lawson Dx/Rx/DC Orders Prescriptions: No Action simvastatin 20 MG tablet 20 mg PO QODAY Label Comments: cholesterol multivitamin with folic acid 1 TABLET tablet 1 tab PO DAILY Label Comments: SUPPLEMENT Vitamin D3 1,000 units PO DAILY Label Comments: supplement acetaminophen 500 MG tablet 1,000 mg PO Q8 Qty: 90 0RF Label Comments: reduce pain celecoxib 200 capsule 200 mg PO DAILY cholecalciferol (vitamin D3) 1,000 UNIT capsule 1,000 unit PO DAILY coenzyme Q10 100 MG capsule 100 mg PO DAILY [id number]-[id number]-hgmbp-CF borate 1 EACH tablet 1 ea PO DAILY glucos sul [id number] 1 EACH capsule 1 ea PO BID meclizine 25 MG tablet 25 mg PO TID PRN PRN (Reason: Dizziness) Qty: 12 0RF Primary Care Provider: Joe Rousseau Referrals: Joe Rousseau MD [Primary Care Provider] -
[2021-09-22 18:29] LABS: Absolute Lymphocyte Count 2.01 X10^3/uL (0.83-4.51); Basophil# 0.05 X10^3/uL; Basophil% 0.6 % (0-1); Eosinophil# 0.08 X10^3/uL; Hematocrit 44.6 % (37-47); Hemoglobin 14.2 g/dL (12.0-15.0); Lymphocyte # 2.01 X10^3/ul (0.83-4.51); Mean Corp Hgb Conc 31.8 g/dL (32-36); Mean Corpuscular Hgb 31.3 pg (27.0-32.0); Mean Corpuscular Volume 98.2 fL (81-99); Mean Platelet Vol. 10.9 fl (6.2-12.0); Monocyte# 0.58 X10^3/uL; Monocyte% 7.5 % (0-10); NRBC Flagged by Analyzer 0 % (0-5); Neutrophil # 4.98 X10^3/uL (2.7-7.7); Neutrophil % 64.6 % (47-70); Platelet Count 300 K/mm3 (150-450); RBC Distribution Width CV 13.5 % (11.6-14.6); RBC Distribution Width SD 49.3 fl (35.1-43.9); Red Blood Count 4.54 M/mm3 (4.2-5.4); White Blood Count 7.7 K/mm3 (4.4-11.0)
--- NOTE | 2021-09-22 18:36 | RAD_ITS ---
STUDY: X-RAY CHEST REASON FOR EXAM: Female, 81 years old. Chest pain TECHNIQUE: Chest PA or AP COMPARISON: 06/01/2020 FINDINGS: The lungs are clear and expanded. There is no demonstrated pleural abnormality. Normal size heart. Normal mediastinum and hussein. Normal visualized pulmonary arteries. Normal visualized aortic arch and descending thoracic aorta. Normal visualized thoracic spine. Moderate bilateral glenohumeral joint osteoarthritis. There is no demonstrated abnormality of the visualized soft tissue structures of the upper abdomen. Stable findings. RAD/Chest 1 View (Portable) IMPRESSION: No acute disease. 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 Electronically Signed: Asif Soares MD, CROW at 18:56 EDT ,
[2021-09-22 18:48] LABS: Anion Gap 8 (5-15); BUN 24 mg/dL (7-18); BUN/Creat Ratio 28.8 RATIO (10-20); Calcium,Total 9.4 mg/dL (8.5-10.1); Chloride 105 mmol/L (98-107); Creatinine, Serum 0.83 mg/dL (0.55-1.02); EST Glomerular Filtration Rate 70 mL/min (>60); Est Glom Filt Rate - Afr Amer 84 mL/min (>60); Estimated Creatinine Clearance 48.08 ml/min; Glucose 104 mg/dL (74-106); Potassium 4.2 mmol/L (3.5-5.1); Sodium Level 143 mmol/L (136-145); Troponin-I HS 4 pg/mL (3.0-54.0)
[2021-09-22 19:04] LABS: Bacteria 0 SEEN /hpf (None Seen); Mucous, Urine 0 SEEN /hpf (<or=2+); Red Blood Cells-Urine 0 SEEN /hpf (0-5)
[2021-09-22 19:06] LABS: Color, Urine Yellow (Yellow); Glucose, Dipstick Normal (Normal); Ketone-Dipstick 15 mg/dl (Negative); Leukocyte Esterase-Dipstick 500 /ul (Negative); Nitrite-Dipstick Negative (Negative); Occult Blood-Urine Negative /ul (Negative); Protein-Dipstick Negative (Negative); Urine Bilirubin Dipstick Negative (Negative); Urine Clarity Clear (Clear); Urine Urobilinogen Normal (Normal)
[2021-09-22 19:17] LABS: White Blood Cells 5-10 SEEN /hpf (0-5)
[2021-09-22 19:19] LABS: Squamous Epithelial Cells - UA 0-5 SEEN /hpf (5-10)
[2021-09-22 20:16] VITALS: BP 155/76; PULSE 87; RESP 16; O2SAT 97
[2021-09-22 20:20] VITALS: BP 155/76; PULSE 85; RESP 16; O2SAT 97
== END 2021-09-22 20:23 | disposition home or self-care (01) ==
PROVIDERS: Emergency Provider Student in an Organized Health Care Education/Training Program; PCP Family Medicine; Visit Provider Student in an Organized Health Care Education/Training Program
DX: R53.1 Weakness (principal); R07.89 Other chest pain; M25.511 Pain in right shoulder; M79.7 Fibromyalgia
CPT/HCPCS: 71045; 80048; 81001; 84484; 85025; 87811; 93005; 99284; A4216

== ENCOUNTER → 2022-01-06 | Outpatient (CLI) | payer MEDICARE, OTHER, SELFPAY ==
[2022-01-06 17:58] LABS: Absolute Neutrophil Count 5.6 X10^3/uL (2.0-7.7); Basophil# 0.04 X10^3/uL; Basophil% 0.5 % (0-1); Eosinophil# 0.08 X10^3/uL; Hematocrit 47.7 % (37-47); Hemoglobin 15.1 g/dL (12.0-15.0); Lymphocyte % 19.3 % (19-41); Mean Corp Hgb Conc 31.7 g/dL (32-36); Mean Corpuscular Hgb 31.5 pg (27.0-32.0); Mean Corpuscular Volume 99.6 fL (81-99); Mean Platelet Vol. 10.9 fl (6.2-12.0); Monocyte# 0.57 X10^3/uL; Monocyte% 7.3 % (0-10); NRBC Flagged by Analyzer 0 % (0-5); Neutrophil # 5.56 X10^3/uL (2.7-7.7); Neutrophil % 71.6 % (47-70); Platelet Count 316 K/mm3 (150-450); RBC Distribution Width CV 13.3 % (11.6-14.6); RBC Distribution Width SD 49.1 fl (35.1-43.9); Red Blood Count 4.79 M/mm3 (4.2-5.4); White Blood Count 7.8 K/mm3 (4.4-11.0)
[2022-01-06 18:33] LABS: Anion Gap 8 (5-15); BUN 18 mg/dL (7-18); BUN/Creat Ratio 23.5 RATIO (10-20); Calcium,Total 9.4 mg/dL (8.5-10.1); Chloride 103 mmol/L (98-107); Creatinine, Serum 0.77 mg/dL (0.55-1.02); EST Glomerular Filtration Rate 76 mL/min (>60); Est Glom Filt Rate - Afr Amer 93 mL/min (>60); Glucose 93 mg/dL (74-106); Potassium 4.5 mmol/L (3.5-5.1); Sodium Level 140 mmol/L (136-145)
== END | disposition home or self-care (01) ==
LOC: MFPLAB 16:35
PROVIDERS: PCP Family Medicine; Referring Provider Family Medicine; Visit Provider Family Medicine
DX: R55 Syncope and collapse (principal)
CPT/HCPCS: 36415; 80048; 85025

== ENCOUNTER 2022-02-10 11:01 | Emergency (ER) | payer MEDICARE, OTHER, SELFPAY ==
[2022-02-10 11:02] VITALS: BP 170/86; PULSE 89; RESP 20; TEMP 36.6; O2SAT 96; BMI 23.1
--- NOTE | 2022-02-10 11:12 | EKG12_ITS ---
Test Reason : CP Blood Pressure : / mmHG Vent. Rate : 083 BPM Atrial Rate : 083 BPM P-R Int : 182 ms QRS Dur : 074 ms QT Int : 354 ms P-R-T Axes : 059 022 048 degrees QTc Int : 415 ms Normal sinus rhythm Possible Left atrial enlargement Borderline ECG Confirmed by VIVIAN ELAM, JOSE ([id number]), video editor JESSE AWAD ([id number]) on 02/14/2022 10:32:34 AM Referred By: TL Confirmed By:ЕКАТЕРИНА PARK MD
--- NOTE | 2022-02-10 11:12 | ED.VIS.CHEST ---
HPI History of Present Illness Chief Complaint: Chest Pain Detail of Chief Complaint: 81-year-old atypical burning chest discomfort. Informant: patient Onset/Context/Timing Onset: Days Activity at onset: gradual Timing: Continuous Quality: Positive for Burning Location: Right Parasternal and Left Parasternal Current Severity: Mild Maximum Severity: Mild Worsened By: Nothing Relieved By: Nothing Associated Symptoms: Positive for Lightheadedness; Negative for Nausea, Vomiting, Diaphoresis, Dyspnea, Cough, Fever, Acid Reflux or Palpitations Narrative Narrative: 81-year-old female history of atrial tachycardia and fibromyalgia. No prior cardiac disease. Stress test years ago was negative. States that she has been having burning chest discomfort for the last several days. Its been constant. Nothing specifically makes it better or worse. Not associated with exertion. No nausea or diaphoresis. No shortness of breath. At times she might get a little lightheaded. She had a cardiac exercise physiologist at home they diagnosed her recently with an atrial tachycardia in the last several months. She has never had a cardiac catheterization. She denies any history of DVT or PE or risk factors. No leg pain or swelling. No hemoptysis. She denies any recent illness. Prior Similar Symptoms: Yes Recent Illness/Hospitalization: No CVD Risk Factors: Negative for Hypertension, Diabetes, Hypercholesterolemia or Smoking PE Risk Factors: Negative for Recent Travel/Surgery, Recent Immobilization, Prior DVT or PE, Cancer or OCP + Smoking + >/=35 TAD Risk Factors: Negative for Marfan's Syndrome [facility] Medical History (Updated 02/10/22 @ 13:[address] Scot Roe MD) Arthritis Chronic neck and back pain Knee pain Shoulder pain Home Medications Vitamin D3 1,000 units PO DAILY 08/01/13 [History Last Taken 08/01/13 08:00] multivitamin with folic acid 400 mcg tablet 1 tab PO DAILY 08/01/13 [History Last Taken 08/01/13 08:00] simvastatin 20 mg tablet 20 mg PO QODAY 08/01/13 [History Last Taken 07/31/13 22:00] acetaminophen 500 mg tablet 1,000 mg PO Q8 #90 tabs 12/28/16 [Rx Last Taken Unknown] celecoxib 200 mg capsule 200 mg PO DAILY 10/02/18 [History Last Taken Unknown] cholecalciferol (vitamin D3) 25 mcg (1,000 unit) capsule 1,000 unit PO DAILY 10/02/18 [History Last Taken Unknown] coenzyme Q10 100 mg capsule 100 mg PO DAILY 10/02/18 [History Last Taken Unknown] glucosam 750 mg-chondroi 100 mg-hyalur 1.65 mg-CF borate 108 mg tablet 1 ea PO DAILY 10/02/18 [History Last Taken Unknown] glucosamine sulf dipot chlr,msm,chond 550 mg-C 30 mg-dorota 1 mg capsule 1 ea PO BID 10/02/18 [History Last Taken Unknown] meclizine 25 mg tablet 25 mg PO TID PRN PRN Dizziness #12 tabs 06/01/20 [Rx Last Taken Unknown] Allergy/AdvReac Type Severity Reaction Status Date / Time adhesive tape Allergy Other Verified 09/22/21 17:21 cefdinir Allergy Other Verified 09/22/21 17:21 acetaminophen [From Vicodin] AdvReac Other Verified 09/22/21 17:21 amoxicillin AdvReac Abd Verified 09/22/21 17:21 cramps/diarrhea dactinomycin AdvReac Abd Verified 09/22/21 17:21 cramps/diarrhea gabapentin AdvReac Abd Verified 09/22/21 17:21 cramps/diarrhea hydrocodone [From Vicodin] AdvReac Other Verified 09/22/21 17:21 nortriptyline AdvReac Abd Verified 09/22/21 17:21 cramps/diarrhea pregabalin [From Lyrica] AdvReac Other Verified 09/22/21 17:21 tramadol AdvReac Abd Verified 09/22/21 17:21 cramps/diarrhea Family History Other Cancer Myocardial infarction Social History Smoking Status: Never smoker ROS ROS ED ROS Narrative Burning chest discomfort. Review of Systems ROS Unobtainable: Denies due to encephalopathy Constitutional Constitutional ED: Denies chills or fever(s) ENT ENT ED: Denies ear pain Cardiovascular Cardiovascular: Reports as per HPI and chest pain; Denies palpitations or racing heartbeat Respiratory/Chest Respiratory/Chest: Denies cough or dyspnea Gastrointestinal Gastrointestinal: Denies abdominal pain Genitourinary Genitourinary ED: Denies dysuria or hematuria Musculoskeletal Musculoskeletal: Denies arthralgias Integumentary Denies abscess Neurologic Neurologic: Denies headache(s) Psychiatric Psychiatric: Denies anxiety Endocrine Endocrinology: Denies cold intolerance Hematologic/Lymphatic Hematologic/Lymphatic: Denies easy bleeding Allergic/Immunologic Allergic/Immunologic ED: Denies mouth swelling or tongue swelling EXAM Physical Exam Narrative Exam Narrative: 81-year-old female distress. Vital signs stable afebrile. Pulse ox 96% on room air no signs hypoxia. She is anxious. Has a benign exam. H EENT exam unremarkable. Neck nontender. Lungs clear to auscultation bilaterally. Heart regular rhythm rate about 85 no murmur. Chest wall nontender. Abdomen soft nontender. Moving all 4 extremities. Calves are nontender without edema or cords. Equal symmetrical strong radial pulses. Back nontender. Neurologically she is awake and alert with no focal motor deficits. Const Vital Signs: 02/10/22 11:02 02/10/22 11:07 02/10/22 11:17 Temperature 97.8 F Temperature Source Oral Pulse Rate 89 Respiratory Rate 20 H Respiratory Effort Normal Non-Labored Blood Pressure 170/86 H Blood Pressure Mean 114 Pulse Ox 96 98 Oxygen Delivery Method Room Air Room Air Positive well nourished and well developed; Negative for obese, cachectic, contractures or unkempt General Appearance ED: well developed and NAD; Negative for unkempt, cachectic, contractures or pallor Nutritional Appearance: Negative for cachectic or obese HEENT Reports moist mucous membranes normocephalic and atraumatic; Negative for trauma or tenderness Eyes PERRL and EOMs intact bilaterally General Eye ED: Negative for pale conjunctiva, scleral icterus or other Neck no lymphadenopathy, supple and no JVD General: Negative for tenderness Chest Wall inspection of chest normal and palpation of chest normal Chest: Negative for tenderness Resp normal respiratory effort and clear to auscultation bilaterally Effort and Inspection: Negative for respiratory distress Auscultation: Negative for rales, rhonchi or wheezes Cardio regular rate, regular rhythm, S1 normal heart sound, S2 normal heart sound and no murmurs Rate: Negative for bradycardia or tachycardic Rhythm: Negative for abnormal rhythm GI normal to inspection, nondistended, normoactive bowel sounds, soft to palpation, non-tender, non-distended and no masses Auscultation: Negative for hyperactive bowel sounds Back/Spine no CVA tenderness and no thoracic nor lumbar tenderness General Back: Negative for CVA tenderness Cervical Spine: Negative for cervical spine tenderness Extremity General Extremety ED: Negative for edema, pulses abnormal or tenderness General Extremity: Negative for edema or pulses abnormal Neuro oriented x3 and CN's II-XII intact bilaterally Sensorium / Orientation: awake, alert, oriented to person, oriented to place and oriented to time; Negative for confused, lethargic or stuporous Motor Exam: strength 5/5 throughout Psych mental status grossly normal Appearance: Negative for unkempt Attitude: No agitated Mood & Affect: anxious; Negative for depressed or tearful Skin no rashes or lesions noted and no wounds General Skin Exam: Negative for jaundice or pallor Rashes: No rashes noted Trauma: Negative for abrasion or laceration MDM MDM MDM Narrative Medical decision making narrative: 81-year-old female with very atypical noncardiac sounding chest pain. Has a normal EKG. Will be put through a cardiac work-up. Clinically if it is negative adding she can be safely discharged to home. She has no risk factors for a PE. She does not need a D-dimer nor a CTA. Clinically this is not a dissection. She has no back pain and strong bilateral radial pulses. Her pressures elevated but not significantly elevated. She was given aspirin by squad. Also nitroglycerin without any relief. Repeat exam patient is doing well at 1:15 PM doing well. Exam benign. I reassured her and we went over all of her test results. She does not need delta troponin because she has had this pain for days. Clinically and lab sylvester is not cardiac and she will be discharged home with outpatient follow-up. Lab Data Attestation: I reviewed the patient's lab results. Lab results narrative: CBC unremarkable white count 6.7. H&H 15 and 48. Platelets 392. Electrolytes unremarkable gap of 5 BUN of 20 creatinine 0.7. Glucose 101 troponin 7. Chest x-ray negative. EKG normal. Labs: Laboratory Results - last 24 hr 02/10/22 02/10/22 10:45 10:45 WBC 6.7 RBC 4.90 Hgb 15.7 H Hct 48.3 H MCV 98.6 MCH 32.0 MCHC 32.5 RDW Std Deviation 48.8 H RDW Coeff of [place] 13.2 Plt Count 392 MPV 10.1 Immature Gran % (Auto) 0.400 Neut % (Auto) 64.8 Lymph % (Auto) 23.1 [place] % (Auto) 7.0 Eos % (Auto) 4.0 Baso % (Auto) 0.7 Absolute Neuts (auto) 4.3 Absolute Lymphs (auto) 1.55 Nucleated RBC % 0 Sodium 139 Potassium 4.0 Chloride 106 Carbon Dioxide 28.0 Anion Gap 5 BUN 20 H Creatinine 0.71 Estim Creat Clear Calc 39.90 Est GFR (MDRD) Af Amer 101 Est GFR (MDRD) Non-Af 84 BUN/Creatinine Ratio 28.2 H Glucose 101 Calcium 10.0 Troponin I High Sens 7 Radiography Chest X-Ray - ED: 1 View, Read by ED Physician, Heart, Lungs, Mediastinum, Bony Structures, No Acute Disease and Chronic Changes Diagnostic Testing: Clinical Impression(s) from Imaging Studies Chest X-Ray 02/10/22 11:29 IMPRESSION: Hyperinflation. The lungs are clear. Electronically Signed: Norman Martinez MD at 12:15 EST , Chest x-ray, portable, single view interpreted both myself and the radiologist shows no acute abnormality. Normal cardiac silhouette. Normal lung zhang. Rhythm Strip Rhythm Strip: Sinus Rhythm Rate: 83 Ectopy: None EKG Initial EKG: Attestation: I personally reviewed and interpreted this EKG as follows: Comments: Normal sinus rhythm rate 83 no acute signs of IL or ischemia. Prior EKG tracings: not available for review Discharge Plan Triage Chief Complaint: Chest Pain ED Provider: Scot Roe Dx/Rx/DC Orders Clinical Impression: Chest pain, History of fibromyalgia Instructions: ED Chest Pain, Noncardiac Prescriptions: No Action simvastatin 20 MG tablet 20 mg PO QODAY Label Comments: cholesterol multivitamin with folic acid 1 TABLET tablet 1 tab PO DAILY Label Comments: SUPPLEMENT Vitamin D3 1,000 units PO DAILY Label Comments: supplement acetaminophen 500 MG tablet 1,000 mg PO Q8 Qty: 90 0RF Label Comments: reduce pain celecoxib 200 capsule 200 mg PO DAILY cholecalciferol (vitamin D3) 1,000 UNIT capsule 1,000 unit PO DAILY coenzyme Q10 100 MG capsule 100 mg PO DAILY [id number]-duddf-CF borate 1 EACH tablet 1 ea PO DAILY glucos sul [id number]-C-Mn 1 EACH capsule 1 ea PO BID meclizine 25 MG tablet 25 mg PO TID PRN PRN (Reason: Dizziness) Qty: 12 0RF Primary Care Provider: Joe Rousseau Referrals: Joe Rousseau MD [Primary Care Provider] - As Needed Activity Restrictions/Additional Instructions: Follow-up with your doctor. All your labs, chest x-ray and EKG were normal. This is not cardiac chest pain. Disposition Disposition: Home, Self Care
[2022-02-10 11:17] VITALS: O2SAT 98
[2022-02-10 11:26] LABS: Absolute Lymphocyte Count 1.55 X10^3/uL (0.83-4.51); Absolute Neutrophil Count 4.3 X10^3/uL (2.0-7.7); Basophil# 0.05 X10^3/uL; Basophil% 0.7 % (0-1); Eosinophil# 0.27 X10^3/uL; Hematocrit 48.3 % (37-47); Hemoglobin 15.7 g/dL (12.0-15.0); Lymphocyte # 1.55 X10^3/ul (0.83-4.51); Lymphocyte % 23.1 % (19-41); Mean Corp Hgb Conc 32.5 g/dL (32-36); Mean Corpuscular Volume 98.6 fL (81-99); Mean Platelet Vol. 10.1 fl (6.2-12.0); Monocyte# 0.47 X10^3/uL; NRBC Flagged by Analyzer 0 % (0-5); Neutrophil # 4.34 X10^3/uL (2.7-7.7); Neutrophil % 64.8 % (47-70); Platelet Count 392 K/mm3 (150-450); RBC Distribution Width CV 13.2 % (11.6-14.6); RBC Distribution Width SD 48.8 fl (35.1-43.9); White Blood Count 6.7 K/mm3 (4.4-11.0)
--- NOTE | 2022-02-10 11:29 | RAD_ITS ---
STUDY: X-RAY CHEST REASON FOR EXAM: Female, 81 years old. Chest pain and chest discomfort. TECHNIQUE: Single AP portable view of the chest. COMPARISON: Comparison is made with prior study dated 09/22/2021. FINDINGS: EKG electrode are seen. Hyperinflation. The lungs are clear. There is no demonstrated pleural abnormality. Normal size heart. Normal mediastinum and hussein. Normal visualized pulmonary arteries. Normal visualized aortic arch and descending thoracic aorta. Normal visualized thoracic spine. There is degenerative osteoarthritis of the bilateral shoulders. There is no demonstrated abnormality of the visualized soft tissue structures of the upper abdomen. RAD/Chest 1 View (Portable) IMPRESSION: Hyperinflation. The lungs are clear. Electronically Signed: Norman Martinez MD at 12:15 EST ,
[2022-02-10 11:42] LABS: Anion Gap 5 (5-15); BUN 20 mg/dL (7-18); BUN/Creat Ratio 28.2 RATIO (10-20); Chloride 106 mmol/L (98-107); Creatinine, Serum 0.71 mg/dL (0.55-1.02); EST Glomerular Filtration Rate 84 mL/min (>60); Est Glom Filt Rate - Afr Amer 101 mL/min (>60); Glucose 101 mg/dL (74-106); Sodium Level 139 mmol/L (136-145); Troponin-I HS (w/2H Reflex) 7 pg/mL (3.0-54.0)
[2022-02-10 13:20] LABS: Reflex Troponin-HS? (from REC) Y
[2022-02-10 13:24] VITALS: BP 144/104; PULSE 79; RESP 17; O2SAT 98
[2022-02-10 14:06] VITALS: O2SAT 98
== END 2022-02-10 14:06 | disposition home or self-care (01) ==
PROVIDERS: Emergency Provider Emergency Medicine; PCP Family Medicine; Visit Provider Emergency Medicine
DX: R07.89 Other chest pain (principal); M79.7 Fibromyalgia
CPT/HCPCS: 71045; 80048; 84484; 85025; 93005; 99285

== ENCOUNTER → 2022-03-23 | Outpatient (CLI) | payer MEDICARE, OTHER, SELFPAY ==
[2022-03-23 13:38] LABS: Absolute Lymphocyte Count 1.26 X10^3/uL (0.83-4.51); Absolute Neutrophil Count 8.3 X10^3/uL (2.0-7.7); Basophil# 0.08 X10^3/uL; Basophil% 0.8 % (0-1); Eosinophil# 0.09 X10^3/uL; Eosinophils% 0.9 % (0-5); Hematocrit 46.1 % (37-47); Hemoglobin 14.8 g/dL (12.0-15.0); Lymphocyte # 1.26 X10^3/ul (0.83-4.51); Lymphocyte % 12.3 % (19-41); Mean Corp Hgb Conc 32.1 g/dL (32-36); Mean Corpuscular Hgb 31.6 pg (27.0-32.0); Mean Corpuscular Volume 98.5 fL (81-99); Monocyte# 0.46 X10^3/uL; Monocyte% 4.5 % (0-10); NRBC Flagged by Analyzer 0 % (0-5); Neutrophil # 8.28 X10^3/uL (2.7-7.7); Neutrophil % 81.1 % (47-70); Platelet Count 394 K/mm3 (150-450); RBC Distribution Width CV 12.9 % (11.6-14.6); RBC Distribution Width SD 46.2 fl (35.1-43.9); Red Blood Count 4.68 M/mm3 (4.2-5.4); White Blood Count 10.2 K/mm3 (4.4-11.0)
[2022-03-23 14:11] LABS: Anion Gap 8 (5-15); BUN 20 mg/dL (7-18); BUN/Creat Ratio 28.9 RATIO (10-20); Calcium,Total 9.4 mg/dL (8.5-10.1); Chloride 105 mmol/L (98-107); Creatinine, Serum 0.69 mg/dL (0.55-1.02); EST Glomerular Filtration Rate 86 mL/min (>60); Est Glom Filt Rate - Afr Amer 104 mL/min (>60); Glucose 101 mg/dL (74-106); Potassium 4.3 mmol/L (3.5-5.1); Sodium Level 142 mmol/L (136-145)
== END | disposition home or self-care (01) ==
PROVIDERS: PCP Family Medicine; Referring Provider Internal Medicine Cardiovascular Disease; Visit Provider Internal Medicine Cardiovascular Disease
DX: E78.5 Hyperlipidemia, unspecified (principal); R07.9 Chest pain, unspecified
CPT/HCPCS: 36415; 80048; 85025

== ENCOUNTER 2022-04-04 06:50 | Day surgery (SDC) | payer MEDICARE, OTHER, SELFPAY ==
--- NOTE | 2022-04-04 08:49 | ECHOCS_ITS ---
Reason For Study: Chest Pain Procedure This was a 2D Doppler, Color Flow transthoracic echocardiogram. The study was technically difficult. Contrast injection was performed. Exam performed in [employer] [facility] 2 s/p heart cath. Left Ventricle Normal LV size. Left ventricular systolic function is normal. The estimated ejection fraction is 55 %. Stage 1 diastolic dysfunction. No regional wall motion abnormalities noted. Right Ventricle Normal RV size. Normal systolic function. Atria Normal left atrium. Normal right atrium. Mitral Valve Normal mitral valve. Tricuspid Valve Normal tricuspid valve. Mild tricuspid valve insufficiency. Aortic Valve Trisinus/trileaflet aortic valve. Great Vessels Normal aortic root. The pulmonary artery is normal size. Pericardium/Pleural No pericardial effusion. Medication Diluted definity 3ml given slow IV push to enhance endocardial definition. MMode/2D Measurements & Calculations LVIDd: 4.4 cm IVSd: 0.81 cm Ao root diam: 3.0 cm LVIDs: 3.6 cm LVPWd: 0.69 cm LA dimension: 3.1 cm FS: 17.6 % LVAd ap4: 21.5 cm2 SV(MOD-sp4): 36.6 ml SV(sp4-el): 38.1 ml LVLd ap4: 6.2 cm EDV(MOD-sp4): 61.2 ml EDV(sp4-el): 63.3 ml LVAs ap4: 12.4 cm2 LVLs ap4: 5.2 cm ESV(MOD-sp4): 24.6 ml ESV(sp4-el): 25.2 ml EF(MOD-sp4): 59.9 % EF(sp4-el): 60.2 % Time Measurements MV dec time: 0.17 sec Doppler Measurements & Calculations MV E max martin: 55.9 cm/sec Lat Peak E' Martin: 9.8 cm/sec Med Peak E' Martin: 9.0 cm/sec MV A max martin: 73.9 cm/sec E/E' lat: 5.7 E/E' med: 6.2 MV E/A: 0.76 MV V2 max: 92.8 cm/sec MV P1/2t max martin: 77.5 cm/sec Ao V2 max: 105.5 cm/sec MV max P.4 mmHg MV P1/2t: 65.9 msec Ao max P.4 mmHg MV V2 mean: 51.1 cm/sec MV dec slope: 344.4 cm/sec2 Ao V2 mean: 74.4 cm/sec MV mean P.2 mmHg Ao mean P.5 mmHg MV V2 VTI: 19.5 cm MVA(P1/2t): 3.3 cm2 Ao V2 VTI: 22.7 cm AV (velocity ratio): 0.86 LV V1 max: 86.1 cm/sec PA V2 max: 80.9 cm/sec TR max martin: 211.5 cm/sec LV V1 max P.0 mmHg TR max P.9 mmHg LV V1 mean P.5 mmHg LV V1 mean: 57.9 cm/sec LV V1 VTI: 19.5 cm ECHO/Echo Complete W/ Contrast Interpretation Summary Normal LV size. Left ventricular systolic function is normal. The estimated ejection fraction is 55 %. Stage 1 diastolic dysfunction. Contrast injection was performed. Ordering Physician: Edward Zarco Referring Physician: Joe Rousseau Performed By: Magdaleno Nava RCS
--- NOTE | 2022-04-04 09:24 | CL.D_ITS ---
Patient Name: KIERAN RICH Study Date: 04/04/2022 Performing: Edward Zarco MD Ht: 66 inches 167.64 cm : 1940 Wt: 136 lbs 61.69 kg Age: 82 Gender: female BSA: 1.7 PROCEDURE(S) PERFORMED [id number])C/COR CLINICAL PROFILE AND INDICATIONS Indications: Suspected CAD, Suspected CAD Heart Failure: None Stress/Imaging Stress/Image Study Performed: No CAD Presentations: Stable angina. CONCLUSIONS Normal coronary arteries RECOMMENDATIONS Medical therapy DESCRIPTION OF PROCEDURE The patient arrived to the procedure lab. The risks and benefits of the procedure as well as a full description of our services here and current unavailability of surgical backup were fully explained to the patient and/or their significant other prior to the catheterization. The Timeout was completed, verifying the correct patient and procedure. The patient's procedural site was prepped and draped in the usual fashion. Local anesthetic was given subcutaneously to right radial region with Lidocaine 2%. Using a modified Seldinger technique, arterial access was obtained via the right radial artery, a 6Fr sheath was inserted. Left Coronary Artery selective angiography was performed in multiple views using a 5 Fr. 4.0 [place] catheter. Right Coronary Artery selective angiography was then performed in multiple views using a 5 Fr. 4.0 [place] catheter.The arterial sheath was pulled and a TR Band was applied for hemostasis CORONARY ANGIOGRAPHY DOMINANCE: Right Dominant LEFT HEART ASSESSMENT Left Ventricular Ejection Fraction: by Echo 55 % Normal LV wall motion Normal Left Ventricular systolic function LEFT MAIN: Angiographically normal LEFT ANTERIOR DESCENDING ARTERY: Angiographically normal CIRCUMFLEX ARTERY: Angiographically normal RIGHT CORONARY ARTERY: Angiographically normal COMPLICATIONS No Complications PROCEDURE MEDICATIONS Versed 1 mg IV Fentanyl 50 mcg IV Oxygen: 2 L/min via nasal cannula SUMMARY OF HEMODYNAMIC DATA Time AIR REST ECG 07:18:46 AO 145/68 (105) SA 08:45:07 Signed By Edward Zarco MD On 04/04/2022 09:23:45 Edward Zarco MD
== END 2022-04-04 10:50 | disposition home or self-care (01) ==
PROVIDERS: PCP Family Medicine; Referring Provider Internal Medicine Cardiovascular Disease; Visit Provider Internal Medicine Cardiovascular Disease
DX: I25.118 Atherosclerotic heart disease of native coronary artery with other forms of angina pectoris (principal); I47.1 Supraventricular tachycardia; E55.9 Vitamin D deficiency, unspecified; E78.00 Pure hypercholesterolemia, unspecified; G89.29 Other chronic pain; M54.2 Cervicalgia; Z86.73 Personal history of transient ischemic attack (TIA), and cerebral infarction without residual deficits; Z79.82 Long term (current) use of aspirin; Z79.899 Other long term (current) drug therapy
CPT/HCPCS: 93306; 93454; 99152; 99153; J7040; Q9957; Q9967; A4216; C1769; C1894; C8929

== ENCOUNTER → 2022-04-08 | Outpatient (CLI) | payer MEDICARE, OTHER, SELFPAY ==
--- NOTE | 2022-04-08 12:11 | ADUUE_ITS ---
Reason For Study: Pseudo Check RIGHT Radial Vein is compressible Ulnar Vein is compressible Radial artery mid measures 0.21cm x 0.23cm Radial artery distal measures 0.28cm x 0.29cm Ulnar artery distal measures 0.08cm x 0.11cm. Radial A velocity = 54.8 cm/sec. Ulnar A velocity = 23.9 cm/sec. No Pseudoaneurysm or occlusion visualized. VL/US Art Duplex Unilat UP Extrem Interpretation Summary Normal right radial artery with a maximum diameter of 0.28 x 0.29 cm. Normal cu rrent flow velocities. Normal right ulnar artery with normal-appearing flow. Patent and compressible right radial and ulnar veins. No identification of pseudoaneurysm or fistula or obstruction identified. Ordering Physician: Jenny Caceres Referring Physician: Joe Rousseau Performed By: Paulino Restrepo RVT
== END | disposition home or self-care (01) ==
PROVIDERS: PCP Family Medicine; Visit Provider Physician Assistant Medical
DX: R09.89 Other specified symptoms and signs involving the circulatory and respiratory systems (principal); S55.90 Unspecified injury of unspecified blood vessel at forearm level; R20.0 Anesthesia of skin; R20.2 Paresthesia of skin
CPT/HCPCS: 93931

== ENCOUNTER → 2022-04-18 | Outpatient (CLI) | payer MEDICARE, OTHER, SELFPAY ==
[2022-04-18 10:01] LABS: Vitamin D,25 Hydroxy 123.2 ng/mL
[2022-04-18 10:08] LABS: Anion Gap 6 (5-15); BUN 20 mg/dL (7-18); BUN/Creat Ratio 27.6 RATIO (10-20); Calcium,Total 8.7 mg/dL (8.5-10.1); Chloride 107 mmol/L (98-107); Cholesterol 191 mg/dL (200); Creatinine, Serum 0.72 mg/dL (0.55-1.02); EST Glomerular Filtration Rate 81 mL/min (>60); Est Glom Filt Rate - Afr Amer 98 mL/min (>60); Glucose 98 mg/dL (74-106); High Density Lipoprotein 78 mg/dL; Potassium 4.1 mmol/L (3.5-5.1); Sodium Level 142 mmol/L (136-145); Triglycerides 93 mg/dL; Very Low Density Lipoprotein 19 mg/dL (5-40)
== END | disposition home or self-care (01) ==
PROVIDERS: PCP Family Medicine; Visit Provider Family Medicine
DX: Z00.00 Encounter for general adult medical examination without abnormal findings (principal); E55.9 Vitamin D deficiency, unspecified; Z79.899 Other long term (current) drug therapy
CPT/HCPCS: 36415; 80048; 80061; 82306

== ENCOUNTER → 2022-08-02 | Outpatient (CLI) | payer MEDICARE, OTHER, SELFPAY ==
--- NOTE | 2022-08-02 08:59 | BD_ITS ---
STUDY: DUAL ENERGY X-RAY ABSORPTIOMETRY / DXA REASON FOR EXAM: Female, 82 years old. 733.00OsteoporosisBONE DENSITY REASON FOR EXAM TECHNIQUE: Bone Mineral Density (BMD) measurements of lumbar spine and left forearm were obtained. COMPARISON: Comparison is made with prior study dated August 14, 2019. FINDINGS: Lumbar Spine (L1-L4): g/cm2 (1.039) / T-score (-0.1) / Z-score (2.8) Findings are suggestive of normal bone density with a low fracture risk. Left Forearm: g/cm2 (0.457) / T-score (-2.3) / Z-score (1.3) The T-Scores on the most recent prior examination were: Lumbar Spine (L1-L4): There has been improvement of bone density since the previous examination. BD/Dexa Bone Density Study IMPRESSION: The patient is considered osteopenic as outlined below according to World [place] Organization (WHO) criteria with a moderate fracture risk. There has been improvement of bone density since the previous examination. Reference Information: The T-score is the number of standard deviations above or below the standard which is normal for young adults at their peak bone mineral density. The World Health Organization (WHO) interprets the T-scores as follows: Above -1 Normal bone density Between -1 and -2.5 Osteopenia Equal to / or below -2.5 Osteoporosis As a practical clinical guideline, osteopenia may be graded as follows: Mild -1 through -1.5 Moderate -1.6 through -2.0 Severe -2.1 through -2.4 The Z-score is the number of standard deviations above or below age-matched controls. A Z-score of less than -1.5 would be considered abnormal. References: 1. NIH Osteoporosis and Related Bone Diseases www osteo.org 2. International Society for Clinical Densitometry www iscd.org 3. National Osteoporosis Foundation www nof.org Electronically Signed: Norman Martinez MD at 15:41 EDT ,
== END | disposition home or self-care (01) ==
LOC: OPBD 08:49
PROVIDERS: PCP Family Medicine; Referring Provider Family Medicine; Visit Provider Family Medicine
DX: M81.0 Age-related osteoporosis without current pathological fracture (principal)
CPT/HCPCS: 77080

== ENCOUNTER → 2022-11-10 | Outpatient (CLI) | payer MEDICARE, OTHER, SELFPAY | END | disposition home or self-care (01) | LOC: MFPLAB 13:38 → LABSPEC 13:40 | PROVIDERS: PCP Family Medicine; Visit Provider Family Medicine | DX: R35.0 Frequency of micturition (principal) | CPT/HCPCS: 87086; 87088; 87186 ==

== ENCOUNTER → 2023-04-17 | Outpatient (CLI) | payer MEDICARE, OTHER, SELFPAY ==
[2023-04-17 12:52] LABS: Vitamin D,25 Hydroxy 47.6 ng/mL
[2023-04-17 13:31] LABS: ALB/GLOB Ratio 1.1 RATIO (0.9-2.4); AST(SGOT) 18 U/L (15-37); Alanine Aminotransfer ALT/SGPT 17 U/L (13-56); Albumin, Serum 3.5 g/dL (3.2-5.0); Alkaline Phosphatase 71 U/L (45-117); Anion Gap 6 (5-15); BUN 21 mg/dL (7-18); BUN/Creat Ratio 25.8 RATIO (10-20); Calcium,Total 9.1 mg/dL (8.5-10.1); Chloride 108 mmol/L (98-107); Cholesterol 192 mg/dL (200); Creatinine, Serum 0.82 mg/dL (0.55-1.02); EST Glomerular Filtration Rate 71 mL/min (>60); Est Glom Filt Rate - Afr Amer 86 mL/min (>60); Globulin 3.2 g/dL (2.2-4.2); Glucose 96 mg/dL (74-106); High Density Lipoprotein 81 mg/dL; Potassium 4.3 mmol/L (3.5-5.1); Protein, Total 6.7 g/dL (6.4-8.2); Sodium Level 141 mmol/L (136-145); Triglycerides 104 mg/dL; Very Low Density Lipoprotein 21 mg/dL (5-40)
== END | disposition home or self-care (01) ==
LOC: MFPLAB 10:16
PROVIDERS: PCP Family Medicine; Visit Provider Family Medicine
DX: Z00.00 Encounter for general adult medical examination without abnormal findings (principal); E55.9 Vitamin D deficiency, unspecified; E78.00 Pure hypercholesterolemia, unspecified
CPT/HCPCS: 36415; 80053; 80061; 82306

== ENCOUNTER → 2023-05-02 | Outpatient (CLI) | payer MEDICARE, OTHER, SELFPAY ==
--- NOTE | 2023-05-02 09:01 | BI_ITS ---
MAMMOGRAPHY - BILATERAL SCREENING REASON FOR EXAM: Female, 83 years old. Routine annual screening examination. PERTINENT HISTORY: Mother with breast cancer. Remote left stereotactic breast biopsy. TECHNIQUE: Digital bilateral breast nick (3D mammographic acquisition) in the CC and MLO projections. 2-D mediolateral oblique (MLO) and craniocaudad (CC) views of both breasts were obtained. CAD: Full Field Digital Mammography with Computer Added Detection was performed. COMPARISON: Comparison is made with prior study dated November 12, 2020 and August 02, 2017. FINDINGS: Breast Composition: There are scattered areas of fibroglandular density. There are no dominant masses or suspicious calcifications. A tissue clip marker is seen in the deep upper lateral aspect of the left breast. This is unchanged. No other significant abnormalities are identified. There has been no significant change since the prior study. BI/SCRN MAMM (CAD)W/NICK BILAT IMPRESSION: Stable bilateral screening mammogram. Yearly follow-up mammogram recommended. (A) ASSESSMENT CATEGORY: BIRADS Category 2: Benign. A letter regarding these results will be sent to the patient by the facility within 30 days. Approximately 10% of breast cancers are not detected by mammography. A normal mammogram should not delay biopsy of a clinically suspicious abnormality. [id number] Electronically Signed: Norman Martinez MD at 10:13 EDT ,
== END | disposition home or self-care (01) ==
LOC: OPBI 08:56
PROVIDERS: PCP Family Medicine; Referring Provider Family Medicine; Visit Provider Family Medicine
DX: Z12.31 Encounter for screening mammogram for malignant neoplasm of breast (principal)
CPT/HCPCS: 77063; 77067

== ENCOUNTER → 2023-09-01 | Outpatient (CLI) | payer MEDICARE, OTHER, SELFPAY ==
[2023-09-01 12:20] LABS: Absolute Lymphocyte Count 1.04 X10^3/uL (0.83-4.51); Absolute Neutrophil Count 7.6 X10^3/uL (2.0-7.7); Basophil# 0.04 X10^3/uL; Basophil% 0.4 % (0-1); Eosinophil# 0.02 X10^3/uL; Eosinophils% 0.2 % (0-5); Hemoglobin 14.8 g/dL (12.0-15.0); Lymphocyte # 1.04 X10^3/ul (0.83-4.51); Lymphocyte % 11.4 % (19-41); Mean Corp Hgb Conc 32.2 g/dL (32-36); Mean Corpuscular Hgb 31.2 pg (27.0-32.0); Mean Platelet Vol. 10.8 fl (6.2-12.0); Monocyte# 0.41 X10^3/uL; Monocyte% 4.5 % (0-10); NRBC Flagged by Analyzer 0 % (0-5); Neutrophil # 7.55 X10^3/uL (2.7-7.7); Neutrophil % 83.2 % (47-70); Platelet Count 298 K/mm3 (150-450); RBC Distribution Width CV 13.8 % (11.6-14.6); RBC Distribution Width SD 49.8 fl (35.1-43.9); Red Blood Count 4.74 M/mm3 (4.2-5.4); White Blood Count 9.1 K/mm3 (4.4-11.0)
[2023-09-01 12:52] LABS: Anion Gap 4 (5-15); BUN 18 mg/dL (7-18); Calcium,Total 9.8 mg/dL (8.5-10.1); Chloride 106 mmol/L (98-107); EST Glomerular Filtration Rate 63 mL/min (>60); Est Glom Filt Rate - Afr Amer 76 mL/min (>60); Glucose 120 mg/dL (74-106); Potassium 4.3 mmol/L (3.5-5.1); Sodium Level 138 mmol/L (136-145)
== END | disposition home or self-care (01) ==
LOC: MFPLAB 11:06
PROVIDERS: PCP Family Medicine; Visit Provider Family Medicine
DX: R55 Syncope and collapse (principal)
CPT/HCPCS: 36415; 80048; 85025

== ENCOUNTER 2023-09-15 13:28 | Emergency (ER) | payer MEDICARE, OTHER, SELFPAY ==
[2023-09-15 13:28] VITALS: BP 154/87; PULSE 98; RESP 14; TEMP 36.6; O2SAT 100; BMI 21.2
--- NOTE | 2023-09-15 13:35 | EKG12_ITS ---
Test Reason : CP Blood Pressure : / mmHG Vent. Rate : 093 BPM Atrial Rate : 093 BPM P-R Int : 184 ms QRS Dur : 070 ms QT Int : 338 ms P-R-T Axes : 071 023 057 degrees QTc Int : 420 ms Normal sinus rhythm Nonspecific T wave abnormality Abnormal ECG Confirmed by VIVIAN ELAM, JOSE ([id number]), multimedia editor LEONEL TINAJERO ([id number]) on 09/18/2023 9:30:48 AM Referred By: SKYLAR/TL Confirmed By:ЕКАТЕРИНА PARK MD
[2023-09-15 14:08] VITALS: O2SAT 98
--- NOTE | 2023-09-15 14:30 | RAD_ITS ---
INDICATION: chest pain EXAMINATION/TECHNIQUE: X-RAY - XR Chest 1 View COMPARISON: Prior study dated: 02/10/2022 FINDINGS: LINES/DEVICES: None. LUNGS: The lungs are well expanded. No consolidation, edema or effusion. No pneumothorax. MEDIASTINUM AND CARDIOVASCULAR STRUCTURES: Cardiac silhouette not enlarged. Central airways and mediastinal contour are unremarkable. BONES AND SOFT TISSUES: No acute abnormality. Degenerative changes of the shoulders. RAD/Chest 1 View (Portable) IMPRESSION: No acute pulmonary finding. Electronically Signed: Rasheed Albarado MD at 14:41 EDT ,
[2023-09-15 14:33] LABS: Absolute Lymphocyte Count 1.22 X10^3/uL (0.83-4.51); Absolute Neutrophil Count 5.8 X10^3/uL (2.0-7.7); Basophil# 0.06 X10^3/uL; Basophil% 0.8 % (0-1); Eosinophil# 0.08 X10^3/uL; Hematocrit 43.6 % (37-47); Hemoglobin 14.1 g/dL (12.0-15.0); Lymphocyte # 1.22 X10^3/ul (0.83-4.51); Lymphocyte % 15.6 % (19-41); Mean Corp Hgb Conc 32.3 g/dL (32-36); Mean Corpuscular Volume 95.8 fL (81-99); Mean Platelet Vol. 10.1 fl (6.2-12.0); Monocyte# 0.64 X10^3/uL; Monocyte% 8.2 % (0-10); NRBC Flagged by Analyzer 0 % (0-5); Neutrophil # 5.78 X10^3/uL (2.7-7.7); Platelet Count 266 K/mm3 (150-450); RBC Distribution Width CV 13.9 % (11.6-14.6); RBC Distribution Width SD 49.2 fl (35.1-43.9); Red Blood Count 4.55 M/mm3 (4.2-5.4); White Blood Count 7.8 K/mm3 (4.4-11.0)
[2023-09-15 14:53] LABS: Anion Gap 4 (5-15); BUN 24 mg/dL (7-18); BUN/Creat Ratio 25.4 RATIO (10-20); Calcium,Total 9.3 mg/dL (8.5-10.1); Chloride 109 mmol/L (98-107); Creatinine, Serum 0.94 mg/dL (0.55-1.02); EST Glomerular Filtration Rate 60 mL/min (>60); Est Glom Filt Rate - Afr Amer 72 mL/min (>60); Estimated Creatinine Clearance 40.96 ml/min; Glucose 98 mg/dL (74-106); Potassium 4.4 mmol/L (3.5-5.1); Sodium Level 140 mmol/L (136-145); Troponin-I HS (w/2H Reflex) 4 pg/mL (3.0-54.0)
[2023-09-15 15:28] VITALS: BP 140/73; PULSE 81; RESP 18; O2SAT 98
[2023-09-15 16:31] LABS: Reflex Troponin-HS? (from REC) Y
[2023-09-15 16:57] VITALS: BP 149/76; PULSE 81; RESP 18; O2SAT 97
--- NOTE | 2023-09-15 16:59 | ED.VIS.CHEST ---
HPI History of Present Illness Chief Complaint: Chest Pain Informant: patient Narrative Narrative: Presents intermittent chest burning substernal for the last week. Symptoms last 3 to 4 minutes and go away. No other symptoms. No dyspnea nausea diaphoresis. No radicular symptoms. She had multiple episodes today last time prior to arrival. Currently asymptomatic. [facility] weeks ago had a syncopal episode she is seen by her PCP and EKG. She has had Holter monitors in the past a year ago had a monitor reporting atrial tachycardia. She fall with Dr. Zarco, and had a heart cath that was normal. She is put on blood pressure medicines from him. She is not a diabetic. She denies any tobacco history. History of dyslipidemia. She is not on any reflux medications. Denies any nausea or vomiting. Prior Similar Symptoms: Yes CVD Risk Factors: Positive for Hypertension and Hypercholesterolemia; Negative for Diabetes, Family History 1' </=55 or Smoking PE Risk Factors: Negative for Recent Travel/Surgery, Recent Immobilization, Prior DVT or PE or OCP + Smoking + >/=35 PFSH PFSH Medical History (Reviewed 06/29/23 @ 16:23 by Edita Aldridge SOCIAL SERVICE WORKER, SOCIAL SERVICE WORKER-C) Fibromyalgia Stroke Vitamin D deficiency Neuropathic pain, leg, bilateral Orthostatic hypotension Sinusitis Bronchitis Fecal incontinence Tremor due to disorder of central nervous system Dizziness and giddiness Degenerative disc disease Hypercholesteremia Rhinitis, allergic Irritable bowel syndrome Chronic osteoarthritis Thoracic back pain Myalgia Osteoporosis Near syncope Atrial tachycardia Acute back pain Encounter for screening for COVID-19 Common cold Debility UTI (urinary tract infection) Bee sting reaction Bronchitis Chronic neck and back pain Knee pain Shoulder pain Arthritis Home Medications ?Medication ?Instructions ?Recorded ?Last Taken ?Type multivitamin with folic acid 400 1 tab PO DAILY 08/01/13 08/01/13 08:00 History mcg tablet simvastatin 20 mg tablet 20 mg PO QODAY 08/01/13 07/31/13 22:00 History celecoxib 200 mg capsule 200 mg PO DAILY 10/02/18 Unknown History coenzyme Q10 100 mg capsule 100 mg PO DAILY 10/02/18 Unknown History denosumab 60 mg/mL subcutaneous 60 mg subcut [id number] 03/16/22 Unknown History syringe (Prolia) acetaminophen 500 mg tablet 500 mg PO ONCE PRN Pain 03/23/22 Unknown History glucosamine sulf dipot 1 cap PO DAILY 03/23/22 Unknown History chlr,msm,chond 550 mg-C 30 mg-dorota 1 mg capsule amlodipine 5 mg tablet 5 mg PO DAILY #30 tabs 06/28/23 Unknown Rx blood pressure test kit-medium #1 ea 06/28/23 Unknown Rx omeprazole 40 mg capsule,delayed 40 mg PO DAILY #30 caps 09/15/23 Unknown Rx release Allergy/AdvReac Type Severity Reaction Status Date / Time adhesive tape Allergy Other Verified 09/15/23 13:28 bee venom protein (honey bee) Allergy NEEDS Verified 09/15/23 13:28 FOLLOW-UP cefdinir Allergy Other Verified 09/15/23 13:28 diclofenac (From Voltaren) Allergy NEEDS Verified 09/15/23 13:28 FOLLOW-UP Environmental Allergies: Allergy Rash Verified 09/15/23 13:28 Uncoded levofloxacin (From Levaquin) Allergy Swelling Verified 09/15/23 13:28 naproxen (From Naprosyn) Allergy NEEDS Verified 09/15/23 13:28 FOLLOW-UP NSAIDS (Non-Steroidal Allergy NEEDS Verified 09/15/23 13:28 Anti-Inflamma FOLLOW-UP propoxyphene Allergy NEEDS Verified 09/15/23 13:28 FOLLOW-UP amoxicillin AdvReac Abd Verified 09/15/23 13:28 cramps/diarrhea dactinomycin AdvReac Abd Verified 09/15/23 13:28 cramps/diarrhea gabapentin AdvReac Abd Verified 09/15/23 13:28 cramps/diarrhea hydrocodone (From Vicodin) AdvReac Other Verified 09/15/23 13:28 nabumetone (From Relafen) AdvReac Upset Verified 09/15/23 13:28 Stomach nortriptyline AdvReac Abd Verified 09/15/23 13:28 cramps/diarrhea oxaprozin (From Daypro) AdvReac NEEDS Verified 09/15/23 13:28 FOLLOW-UP pregabalin (From Lyrica) AdvReac Other Verified 09/15/23 13:28 tramadol AdvReac Abd Verified 09/15/23 13:28 cramps/diarrhea Family History (Reviewed 06/29/23 @ 16:23 by Edita Aldridge SOCIAL SERVICE WORKER, SOCIAL SERVICE WORKER-C) Father , age 51 Myocardial infarction Sister Arthritis Mother , age 96 Colon cancer, Onset Age: 70 Breast cancer Other Cancer Surgical History (Reviewed 06/29/23 @ 16:23 by Edita Aldridge SOCIAL SERVICE WORKER, SOCIAL SERVICE WORKER-C) History of throat surgery HX: benign breast biopsy H/O tubal ligation History of right hip replacement History of left hip replacement Hip joint replacement status History of hip replacement Social History (Reviewed 06/29/23 @ 16:23 by Edita Aldridge SOCIAL SERVICE WORKER, SOCIAL SERVICE WORKER-C) Smoking Status: Never smoker alcohol intake: never substance use type: does not use caffeine: Yes Type: coffee Number of servings: 1 ROS ROS ED Constitutional Constitutional ED: Denies chills, fever(s) or sweats Eyes Eyes: Denies change in vision ENT ENT ED: Denies dysphagia or sore throat Cardiovascular Cardiovascular: Reports chest pain; Denies leg edema, palpitations or racing heartbeat Respiratory/Chest Respiratory/Chest: Denies cough, dyspnea or dyspnea on exertion Gastrointestinal Gastrointestinal: Denies abdominal pain, diarrhea, nausea or vomiting Genitourinary Genitourinary ED: Denies dysuria, hematuria or urinary frequency Musculoskeletal Musculoskeletal: Denies back pain, extremity pain or neck pain Integumentary Denies rash or wounds Neurologic Neurologic: Denies headache(s), paresthesias or weakness EXAM Physical Exam Const Vital Signs: 09/15/23 13:28 09/15/23 14:08 09/15/23 15:28 Temperature 98 F Temperature Source Temporal Pulse Rate 98 81 Respiratory Rate 14 18 Blood Pressure 154/87 H 140/73 H Blood Pressure Mean 109 95 Pulse Ox 100 98 98 Oxygen Delivery Method Room Air Room Air Room Air 09/15/23 16:57 Temperature Temperature Source Pulse Rate 81 Respiratory Rate 18 Blood Pressure 149/76 H Blood Pressure Mean 100 Pulse Ox 97 Oxygen Delivery Method Room Air Positive well nourished and well developed General Appearance ED: well developed and NAD HEENT Reports moist mucous membranes normocephalic and atraumatic Eyes EOMs intact bilaterally and conjunctivae normal General Eye ED: Yes normal appearance of both eyes Neck no lymphadenopathy and supple General: Negative for tenderness Chest Wall Chest: Negative for tenderness Resp normal respiratory effort and normal air movement Effort and Inspection: symmetric chest movement; Negative for respiratory distress Cardio regular rate, regular rhythm and no murmurs Peripheral Pulses: pulses 2+ throughout GI normal to inspection, nondistended, normoactive bowel sounds and non-tender Palpation: Negative for guarding or rebound tenderness present Back/Spine no CVA tenderness and no thoracic nor lumbar tenderness Extremity normal to inspection General Extremety ED: Negative for edema or tenderness General Extremity: Negative for edema Neuro oriented x3 and no sensory deficits noted Sensorium / Orientation: awake and alert Skin no rashes or lesions noted and no wounds MDM MDM MDM Narrative Medical decision making narrative: Interventions / MDM: Differential diagnosis: Atypical chest pain, reflux Diagnosis considered but do not suspect: ACS however normal EKG with negative cardiac enzymes. My EKG interpretation: Sinus rate of 93, no ST or T wave changes. Imaging independently reviewed and interpreted by myself: 2 view chest x-ray: No acute process. Also read by radiology. External documents reviewed: March 2022, diagnostic cardiac cath reviewed normal coronary arteries without any atherosclerosis Test considered but not ordered:N/A ED course: Patient currently asymptomatic. EKG with no acute findings. Cardiac workup edition further evaluation. Troponin negative x 2 chest x-ray negative. Remains symptom-free. She had normal heart catheter 2022 with clear coronaries. Less likely cardiac in nature. She started on omeprazole. She will follow-up with her PCP. All questions were answered. Re-evaluation: stable Disposition discussed with patient/family/significant other: Patient Case discussed with consulting clinician: N/A This note was generated with WTFast dictation software. It may contain incorrect words, spelling, and punctuation that were not noted in checking the note before signing. Lab Data Attestation: I reviewed the patient's lab results. Labs: Laboratory Results - last 24 hr 09/15/23 09/15/23 14:26 16:30 WBC 7.8 RBC 4.55 Hgb 14.1 Hct 43.6 MCV 95.8 MCH 31.0 MCHC 32.3 RDW Std Deviation 49.2 H RDW Coeff of [place] 13.9 Plt Count 266 MPV 10.1 Immature Gran % (Auto) 0.400 Neut % (Auto) 74.0 H Lymph % (Auto) 15.6 L [place] % (Auto) 8.2 Eos % (Auto) 1.0 Baso % (Auto) 0.8 Absolute Neuts (auto) 5.8 Absolute Lymphs (auto) 1.22 Nucleated RBC % 0 Sodium 140 Potassium 4.4 Chloride 109 H Carbon Dioxide 27.0 Anion Gap 4 L BUN 24 H Creatinine 0.94 Estim Creat Clear Calc 40.96 Est GFR (MDRD) Af Amer 72 Est GFR (MDRD) Non-Af 60 BUN/Creatinine Ratio 25.4 H Glucose 98 Calcium 9.3 Troponin I High Sens 4 4 Radiography Diagnostic Testing: Clinical Impression(s) from Imaging Studies Chest X-Ray 09/15/23 14:30 IMPRESSION: No acute pulmonary finding. Electronically Signed: Rasheed Albarado MD at 14:41 EDT Reading Location ID and State: [facility] / [place] Tel , Service support , Discharge Plan Triage Chief Complaint: Chest Pain ED Provider: Prieto Batres Dx/Rx/DC Orders Clinical Impression: Chest pain, GERD (gastroesophageal reflux disease) Instructions: ED Chest Pain, Noncardiac, ED GERD (Adult) Prescriptions: New omeprazole 40 mg capsule,delayed release(DR/EC) 40 mg PO DAILY Qty: 30 0RF No Action acetaminophen 500 mg tablet 500 mg PO ONCE PRN (Reason: Pain) Patient Comments: reduce pain Prolia 60 mg/mL syringe 60 mg subcut [id number] amlodipine 5 mg tablet 5 mg PO DAILY Qty: 30 11RF (DME) blood pressure test kit-medium Kit See Rx Instructions .Route Qty: 1 0RF Rx Instructions: As directed simvastatin 20 MG tablet 20 mg PO QODAY Patient Comments: cholesterol multivitamin with folic acid 1 TABLET tablet 1 tab PO DAILY Patient Comments: SUPPLEMENT celecoxib 200 capsule 200 mg PO DAILY coenzyme Q10 100 MG capsule 100 mg PO DAILY glucos sul [id number] 550-30-1 mg capsule 1 cap PO DAILY Primary Care Provider: Joe Rousseau Referrals: Joe Rousseau MD [Primary Care Provider] - 1 Week Activity Restrictions/Additional Instructions: Cardiac workup negative the ED. You had normal heart cath March 2022. Take omeprazole as prescribed. Follow-up with your doctor. Print Language: Bol[place] Disposition Disposition: Home, Self Care
[2023-09-15 17:08] LABS: Troponin-I HS 4 pg/mL (3.0-54.0)
[2023-09-15 17:49] VITALS: BP 141/78; PULSE 88; RESP 17; TEMP 36.6; O2SAT 97
== END 2023-09-15 17:50 | disposition home or self-care (01) ==
PROVIDERS: Emergency Provider Emergency Medicine; PCP Family Medicine; Visit Provider Emergency Medicine
DX: R07.9 Chest pain, unspecified (principal); K21.9 Gastro-esophageal reflux disease without esophagitis; E78.00 Pure hypercholesterolemia, unspecified; I10 Essential (primary) hypertension; Z79.899 Other long term (current) drug therapy
CPT/HCPCS: 71045; 80048; 84484; 85025; 93005; 99283; A4216

== ENCOUNTER → 2024-04-19 | Outpatient (CLI) | payer MEDICARE, SELFPAY ==
[2024-04-19 10:53] LABS: ALB/GLOB Ratio 1.5 RATIO (0.9-2.4); AST(SGOT) 26 U/L (<=31); Alanine Aminotransfer ALT/SGPT 12 U/L (<=34); Albumin, Serum 4.2 g/dL (3.4-4.8); Alkaline Phosphatase 74 U/L (35-104); Anion Gap 12 (5-15); BUN 18 mg/dL (4-19); BUN/Creat Ratio 21.6 RATIO (10-20); Calcium,Total 9.2 mg/dL (7.6-11.0); Carbon Dioxide 25.3 mmol/L (21.0-32.0); Chloride 104 mmol/L (98-108); Cholesterol 225 mg/dL (<=200); Creatinine, Serum 0.83 mg/dL (0.70-1.20); EST Glomerular Filtration Rate 69 (>60); Globulin 2.8 g/dL (2.2-4.2); Glucose 93 mg/dL (70-99); High Density Lipoprotein 97 mg/dL; Low Density Lipoprotein Calc. 110 mg/dL; Potassium 4.6 mmol/L (3.3-5.1); Sodium Level 141 mmol/L (133-145); Total Bilirubin 0.38 mg/dL (0.00-1.30); Triglycerides 90 mg/dL; Very Low Density Lipoprotein 18 mg/dL (5-40); Vitamin D,25 Hydroxy 53.8 ng/mL (30-100); cholesterol:hdl ratio screen 2.31
== END | disposition home or self-care (01) ==
LOC: MFPLAB 08:12
PROVIDERS: PCP Family Medicine; Referring Provider Family Medicine; Visit Provider Family Medicine
DX: E78.00 Pure hypercholesterolemia, unspecified (principal); M81.0 Age-related osteoporosis without current pathological fracture
CPT/HCPCS: 36415; 80053; 80061; 82306

== ENCOUNTER → 2024-05-02 | Outpatient (CLI) | payer MEDICARE, SELFPAY ==
--- NOTE | 2024-05-02 08:35 | BI_ITS ---
EXAM: SCRN MAMM (CAD)W/NICK BILAT DATE: 05/02/2024 CLINICAL HISTORY: F, Age 84 y/o , SCREENING BREAST CANCER RISK ASSESSMENT: Does not appear to have been calculated. TECHNIQUE: Bilateral screening digital breast tomosynthesis with 2D and 3D images. Computer aided detection. COMPARISON: Prior exam(s) dated 05/02/2023. FINDINGS: TISSUE DENSITY: The breast tissue is composed of scattered area of fibroglandular density. Bilateral Breast Mammographic Findings: No suspicious masses, suspicious clustered microcalcifications, architectural distortion or secondary sign of malignancy is identified in either breast. Benign vascular calcifications and round calcifications are seen in both breast. A radiopaque clip is seen in the left breast. The biopsy was benign. Post biopsy site is stable. BI/SCRN MAMM (CAD)W/NICK BILAT IMPRESSION: Right Breast: BIRADS 2 BENIGN FINDING. Left Breast: BIRADS 2 BENIGN FINDING. OVERALL FINAL ASSESSMENT: BIRADS 2 BENIGN FINDING RECOMMENDATION: Routine annual follow-up in 1 Year A letter with findings and recommendations will be mailed to the patient. Reading Location: [id number]
== END | disposition home or self-care (01) ==
LOC: OPBI 08:34
PROVIDERS: PCP Family Medicine; Referring Provider Family Medicine; Visit Provider Family Medicine
DX: Z12.31 Encounter for screening mammogram for malignant neoplasm of breast (principal)
CPT/HCPCS: 77063; 77067

== ENCOUNTER → 2024-08-22 | Outpatient (CLI) | payer MEDICARE, SELFPAY ==
--- NOTE | 2024-08-22 08:53 | BD_ITS ---
PROCEDURE: DEXA BONE DENSITY/APPEND SKEL 08/22/2024 REASON FOR EXAM: F, age 84 y/o . Postmenopausal. TECHNIQUE: DEXA BONE DENSITY/APPEND SKEL COMPARISON: Prior study dated August 02, 2022. FINDINGS: BMD and T-SCORES Lumbar spine: 1.083 g/cm2, T-score 0.3 Levels: L1 through L4 Change from prior: Improvement of 4.3%. Left 1/3 radius: 0.457 g/cm2, T-score -2.3 Change from prior: Loss of 1.3%. The World Health Organization has defined the following categories based on bone density: Normal bone density: T-score equal to or greater than -1.0 Osteopenia: T-score between -1.0 and -2.5 Osteoporosis: T-score equal to or less than -2.5 The patient does meet the pharmacological treatment recommendations for prevention of osteoporosis. BD/Dexa Bone Density/Append Skel IMPRESSION: OSTEOPENIA. Recommend follow-up as clinically warranted. Reading Location: [place] [id number]
== END | disposition home or self-care (01) ==
LOC: OPBD 08:52
PROVIDERS: PCP Family Medicine; Referring Provider Family Medicine; Visit Provider Family Medicine
DX: N95.9 Unspecified menopausal and perimenopausal disorder (principal)
CPT/HCPCS: 77081

== ENCOUNTER 2024-11-28 07:40 | Emergency (ER) | payer MEDICARE, SELFPAY ==
[2024-11-28 07:48] VITALS: BP 115/105; PULSE 83; RESP 16; TEMP 36.5; O2SAT 96; BMI 21.7
--- NOTE | 2024-11-28 08:03 | EDS_ITS ---
HPI HPI - GI History of Present Illness Chief Complaint: Nausea/Vomiting/Diarrhea Informant: patient Abdominal Pain/Flank Pain Context: Gradual Onset Timing: Intermittent Quality: Aching Location: Diffuse Worsened by: Nothing Relieved by: Nothing Nausea/Vomiting/Emesis GI Symptom: Positive for Nausea and Vomiting Quality: Positive for Nonbilious; Negative for Blood streaks, Coffee ground or Hematemesis Diarrhea/Melena/Hematochezia GI Symptom: Positive for Diarrhea; Negative for Melena or Hematochezia Stool Quality: Positive for Watery Associated Symptoms Associated Symptoms: Negative for Dysuria, Frequency or Hematuria Narrative Narrative: Patient presents with abdominal pain, nausea, vomiting, diarrhea that began yesterday. Patient states it became worse today. Patient states she had profuse watery diarrhea today. Patient states that sometimes it is dark. Jani ignaciojessica states she has had that in the past and it has resolved. Patient denies any hematochezia. Patient admits to some nausea and dry heaves. Patient admits to diffuse abdominal pain. Patient states it comes and goes. Patient describes it as aching. Patient states nothing makes it better and nothing makes it worse. [facility] Medical History Fibromyalgia Stroke Vitamin D deficiency Neuropathic pain, leg, bilateral Orthostatic hypotension Sinusitis Bronchitis Fecal incontinence Tremor due to disorder of central nervous system Dizziness and giddiness Degenerative disc disease Hypercholesteremia Rhinitis, allergic Irritable bowel syndrome Chronic osteoarthritis Thoracic back pain Myalgia Osteoporosis Near syncope Atrial tachycardia Acute back pain Encounter for screening for COVID-19 Common cold Debility UTI (urinary tract infection) Bee sting reaction Bronchitis Chronic neck and back pain Knee pain Shoulder pain Arthritis Home Medications Medication Instructions Recorded Last Taken Type multivitamin with folic acid 400 1 tab PO DAILY 08/01/13 08:00 History mcg tablet simvastatin 20 mg tablet 20 mg PO QODAY 08/01/1307/08 22:00 History celecoxib 200 mg capsule 200 mg PO DAILY 10/02/18 Unk nown History coenzyme Q10 100 mg capsule 100 mg PO DAILY 10/02/18 U nknown History denosumab 60 mg/mL subcutaneous 60 mg subcut [id number] 03/16/22 Unknown History syringe (Prolia) glucosamine sulf dipot 1 cap PO DAILY 02/15/23 Unkn own History chlr,msm,chond 550 mg-C 30 mg-dorota 1 mg capsule blood pressure test kit-medium #1 ea 06/28/23 Unknown Rx amlodipine 5 mg tablet 5 mg PO DAILY #90 tabs 06/21 Unknown Rx Allergy/AdvReac Type Severity Reaction Status Date / Time adhesive tape Allergy Other Verified 11/28/24 07:54 bee venom protein (honey bee) Allergy NEEDS Verified 11/28/24 07:54 FOLLOW-UP cefdinir Allergy Other Verified 11/28/24 07:54 diclofenac (From Voltaren) Allergy NEEDS Verified 11/28/24 07:54 FOLLOW-UP Environmental Allergies: Allergy Rash Verified 11/28/24 07:54 Uncoded levofloxacin (From Levaquin) Allergy Swelling Verified 11/28/24 07:54 naproxen (From Naprosyn) Allergy NEEDS Verified 11/28/24 07:54 FOLLOW-UP NSAIDS (Non-Steroidal Allergy NEEDS Verified 11/28/24 07:54 Anti-Inflamma FOLLOW-UP propoxyphene Allergy NEEDS Verified 11/28/24 07:54 FOLLOW-UP amoxicillin AdvReac Abd Verified 11/28/24 07:54 cramps/diarrhea dactinomycin AdvReac Abd Verified 11/28/24 07:54 cramps/diarrhea gabapentin AdvReac Abd Verified 11/28/24 07:54 cramps/diarrhea hydrocodone (From Vicodin) AdvReac Other Verified 11/28/24 07:54 nabumetone (From Relafen) AdvReac Upset Verified 11/28/24 07:54 Stomach nortriptyline AdvReac Abd Verified 11/28/24 07:54 cramps/diarrhea oxaprozin (From Daypro) AdvReac NEEDS Verified 11/28/24 07:54 FOLLOW-UP pregabalin (From Lyrica) AdvReac Other Verified 11/28/24 07:54 tramadol AdvReac Abd Verified 11/28/24 07:54 cramps/diarrhea Family History Father , age 51 Myocardial infarction Sister Arthritis Mother , age 96 Colon cancer, Onset Age: 70 Breast cancer Other Cancer Surgical History History of throat surgery HX: benign breast biopsy H/O tubal ligation History of right hip replacement History of left hip replacement Hip joint replacement status History of hip replacement Social History Smoking Status: Never smoker alcohol intake: never substance use type: does not use caffeine: Yes Type: coffee Number of servings: 1 ROS ROS ED Constitutional Constitutional ED: Denies chills or fever(s) Eyes Eyes: Denies blurry vision or change in vision ENT ENT ED: Reports rhinorrhea; Denies sore throat Cardiovascular Cardiovascular: Denies chest pain or palpitations Respiratory/Chest Respiratory/Chest: Denies cough or dyspnea Gastrointestinal Gastrointestinal: Reports abdominal pain, diarrhea, nausea and vomiting Genitourinary Genitourinary ED: Denies dysuria or hematuria Musculoskeletal Musculoskeletal: Reports back pain; Denies neck pain Integumentary Denies abscess or rash Neurologic Neurologic: Denies headache(s) or weakness Allergic/Immunologic Allergic/Immunologic ED: Denies mouth swelling or urticaria EXAM Physical Exam Const Vital Signs: 11/28/24 07:48 Temperature 97.7 F L Temperature Source Oral Pulse Rate 83 Respiratory Rate 16 Blood Pressure 115/105 H Blood Pressure Mean 108 Pulse Ox 96 Oxygen Delivery Method Room Air Positive well nourished and well developed Constitutional Narrative: BMI is 21.7. General Appearance ED: well developed and NAD HEENT Reports moist mucous membranes Neck supple and no JVD Resp normal respiratory effort and clear to auscultation bilaterally Cardio regular rate and regular rhythm GI non-tender and non-distended Auscultation: normoactive bowel sounds Palpation: soft Extremity full ROM General Extremety ED: Negative for edema or tenderness General Extremity: Negative for edema Neuro CN's II-XII intact bilaterally, moves all extremities and no sensory deficits noted Sensorium / Orientation: alert Motor Exam: strength 5/5 throughout Psych mental status grossly normal and thought process normal MDM MDM MDM Narrative Medical decision making narrative: Differential diagnosis includes gastroenteritis, bowel obstruction, perforation, electrolyte abnormality, dehydration, urinary tract infection, diverticulitis, colitis, and viral illness. CBC will be obtained to assess for leukocytosis and anemia. Comprehensive metabolic profile will be obtained to assess for hepatic function, renal function, and electrolyte abnormality. Lipase will be obtained to assess for pancreatitis. Urinalysis will be obtained to assess for urinary tract infection and hematuria. CT scan of the abdomen and pelvis will be obtained to assess for bowel obstruction, perforation, colitis, diverticulitis, and pancreatitis. Lab Data Attestation: I reviewed the patient's lab results. Lab results narrative: CBC was reviewed. There is a mild leukocytosis of 14.2. The remainder is with in normal limits. Comprehensive metabolic profile was reviewed. BUN was minimally elevated at 22. Glucose was minimally elevated at 112. The remainder was within normal limits. Lipase was reviewed and was normal at 37. Urinalysis was reviewed. There is no evidence of urinary tract infection or hematuria. Labs: Laboratory Results - last 24 hr 11/28/24 11/28/24 08:20 11:05 WBC 14.2 H RBC 4.78 Hgb 14.9 Hct 45.6 MCV 95.4 MCH 31.2 MCHC 32.7 RDW Std Deviation 48.8 H RDW Coeff of [place] 13.9 Plt Count 290 MPV 9.9 Immature Gran % (Auto) 0.400 Neut % (Auto) 92.7 H Lymph % (Auto) 2.3 L [place] % (Auto) 3.6 Eos % (Auto) 0.8 Baso % (Auto) 0.2 Absolute Neuts (auto) 13.1 H Absolute Lymphs (auto) 0.32 L Nucleated RBC % 0 Sodium 140 Potassium 4.3 Chloride 104 Carbon Dioxide 26.1 Anion Gap 9 BUN 22 H Creatinine 0.79 Estim Creat Clear Calc 47.25 L Est GFR (MDRD) Non-Af 73 BUN/Creatinine Ratio 27.2 H Glucose 112 H Calcium 9.2 Total Bilirubin 0.33 AST 28 ALT 13 Alkaline Phosphatase 72 Total Protein 6.8 Albumin 4.1 Globulin 2.7 Albumin/Globulin Ratio 1.5 Lipase 37 Urine Color Yellow Urine Clarity Sl. Cloudy Urine pH 5.0 Ur Specific [place] 1.015 Urine Protein 15 H Urine Glucose (UA) Normal Urine Ketones 5 H Urine Occult Blood 50 H Urine Nitrite Negative Urine Bilirubin Negative Urine Urobilinogen Normal Ur Leukocyte Esterase 25 H Urine RBC 0-5 SEEN Urine WBC 0-5 SEEN Ur Squamous Epith Cells 0-5 SEEN Urine Bacteria 0 SEEN Urine Mucus 0 SEEN Radiography Diagnostic Testing: Clinical Impression(s) from Imaging Studies Abdomen/Pelvis CT 11/28/24 08:15 IMPRESSION: Thickening of the small bowel wall suggestive of enteritis. Fluid is seen throughout the colon renal cysts. Beam hardening artifact from the bilateral hip replacement limits visualization of the Reading Location: [facility] CT scan of the abdomen and pelvis was obtained. There is thickening of the small bowel wall suggestive of enteritis. There is fluid throughout the colon. There are renal cysts noted. There is no other acute abnormality noted. There is no evidence of obstruction or perforation. This was interpreted by the radiologist and was also independently reviewed by myself. Treatment and Re-Evaluation :: Patient was given IV fluids and Zofran. Patient was feeling better on reevaluation. Patient was advised of her findings. Patient was instructed to follow-up with her long chain beamer next week as scheduled. Patient was instructed to return to the emergency department if worse in any way. Patient understood and was agreeable with the plan. All questions were answered. Discharge Plan Triage Chief Complaint: Nausea/Vomiting/Diarrhea ED Provider: Paul Sanchez Dx/Rx/DC Orders Clinical Impression: Diarrhea, Abdominal pain Instructions: ED Gastroenteritis, Viral (Adult) Prescriptions: No Action Prolia 60 mg/mL syringe 60 mg subcut [id number] (DME) blood pressure test kit-medium Kit See Rx Instructions .Route Qty: 1 0RF Rx Instructions: As directed simvastatin 20 MG tablet 20 mg PO QODAY Patient Comments: cholesterol multivitamin with folic acid 1 TABLET tablet 1 tab PO DAILY Patient Comments: SUPPLEMENT celecoxib 200 capsule 200 mg PO DAILY coenzyme Q10 100 MG capsule 100 mg PO DAILY glucos sul [id number] 550-30-1 mg capsule 1 cap PO DAILY amlodipine 5 mg tablet 5 mg PO DAILY Qty: 90 3RF Primary Care Provider: Joe Rousseau Referrals: Joe Rousseau MD [Primary Care Provider, Family Practice] - 1-2 Weeks Activity Restrictions/Additional Instructions: Follow-up with your long chain beamer next week as scheduled. Start with a bland diet and advance as tolerated. Print Language: Japanese Disposition Disposition: Home, Self Care
--- NOTE | 2024-11-28 08:15 | CT_ITS ---
PROCEDURE: ABDOMEN/PELVIS W IV CONT ONLY 11/28/2024 REASON FOR EXAM: NAUSEA AND VOMITING Diarrhea. History of recent intestinal biopsies. TECHNIQUE: Procedure Code: [id number] Modality: CT Procedure: ABDOMEN/PELVIS W IV CONT ONLY Coronal and Sagittal reconstruction series were provided. CONTRAST: Isovue-300 VOLUME: 75 mL One or more dose reduction techniques were used (e.g., Automated exposure control, adjustment of the mA and/or kV according to patient size, use of iterative reconstruction technique. RADIATION DOSE SUMMARY: CTDlvol: 9.94 mGy DLP: 472.32 mGycm COMPARISON: None FINDINGS: Lung bases: Minimal increased linear markings at the lung bases slightly more prominent on the right side suggestive of either linear atelectasis and/or scarring. No coronary artery calcification is seen. Liver: Normal size. No mass. Gallbladder: Unremarkable Spleen: Normal size. Pancreas: Normal size without evidence of mass surrounding inflammation or ductal dilation. Adrenals: Unremarkable Kidneys: There is a 3.1 cm cyst in the inferior lateral aspect of the right kidney. There is a 9 mm cyst in the lateral midportion of the left kidney. No evidence of hydronephrosis. Bladder: Not well visualized due to beam hardening artifact caused by the bilateral hip replacements. Reproductive Organs: Not well seen due to the beam hardening artifact caused by bilateral hip replacements. Bowel: There is thickening of the small bowel wall suggestive of possible enteritis. Fluid is seen throughout the colon in keeping with the patient's history of diarrhea. Appendix: The appendix is not identified. There is no inflammatory process identified in the right lower quadrant to suggest appendicitis. Lymph nodes: Unremarkable. Vasculature: Mild diffuse atherosclerotic calcifications are noted. Peritoneum / Retroperitoneum: Unremarkable Bones: Degenerative changes of the spine. Status post bilateral total hip replacement. CT/Abdomen/Pelvis W IV Cont ONLY IMPRESSION: Thickening of the small bowel wall suggestive of enteritis. Fluid is seen thro ughout the colon renal cysts. Beam hardening artifact from the bilateral hip replacement limits visualization of the Reading Location: [place] [id number]
[2024-11-28 08:29] LABS: Hematocrit 45.6 % (37-47); Hemoglobin 14.9 g/dL (12.0-15.0); Immature Granulocytes Count 0.060 X10^3/uL (0.0-0.0); Mean Corp Hgb Conc 32.7 g/dL (32-36); Mean Corpuscular Volume 95.4 fL (81-99); Mean Platelet Vol. 9.9 fl (6.2-12.0); NRBC Flagged by Analyzer 0 % (0-5); POSITIVE DIFFERENTIAL YES; Platelet Count 290 K/mm3 (150-450); RBC Distribution Width CV 13.9 % (11.6-14.6); RBC Distribution Width SD 48.8 fl (35.1-43.9); Red Blood Count 4.78 M/mm3 (4.2-5.4); White Blood Count 14.2 K/mm3 (4.4-11.0)
[2024-11-28] MEDS: 0.9% Normal Saline (1000mL) 1,000 ML 999 ML IV (08:32)
--- OUTSIDE RECORDS SUMMARY | 2024-11-28 08:36 | XMS RPT_ITS | CCD ---
Author Organization [facility] Care Team Providers Care Medical Accounting Clerk Name Role Phone Dr. Joe Bills Primary Care Provider Alice Grodon Attending Provider Unavailalbino Bills, Dr. Diaz Referring Provider Dr. Edward Zarco Attending Provider Dr. Avinash Benavides Attending Provider Soham, Dr. Diaz Primary Care Provider Dr. Joe Bills Referring Provider Luis Carlos BUSH, ZAHRA Kohler Attending Provider Dr. Joe Bills MD Primary Care Provider Soham ELAM, Dr. Diaz Attending Provider Soham ELAM, Dr. Diaz Referring Provider Soham ELAM, Dr. Diaz Primary Care Provider Soham ELAM, Dr. Diaz Attending Provider Soham ELAM, Dr. Diaz Referring Provider Soham ELAM, Dr. Diaz Primary Care Provider Soham ELAM, Dr. Diaz Attending Provider Soham ELAM, Dr. Diaz Referring Provider Haroldo ELAM, Dr. Leon Attending Provider Unavailable Primary Care Provider UnavailJoe Bonilla Primary Care Unavailable Soham, Joe Attending Unavailable Soham, Joe Referring Unavailable Soham, Joe Primary Care Unavailable Soham, Joe Attending Unavailable Soham, Joe Referring Unavailable Soham, Joe Referring Unavailable Soham, Joe Primary Care Unavailable Joe iBlls Attending Unavailable Bills, Joe Primary Care Unavailable Edward Zarco Attending Unavailable Joe Bills Referring Unavailable Joe Bills Referring Unavailable Joe Bills Primary Care Unavailable Luis Carlos BUSH, Edita Attending Unavailable Joe Bills MD Primary Care Provider CAMILO IBARRA Referring Unavailable CAMILO IBARRA Admitting Unavailable CAMILO IBARRA Attending Unavailable JOE BILLS Primary Care Unavailable Allergies Allergy Classification Reported Allergen(s) Allergy Type Date of Onset Reaction(s) Facility (3 sources) Acetaminophen Drug Allergy 2 Other [facility] Work Phone: (15 sources) Adhesive Tape; Translations: [adhesive tape] Allergy to substance 2 Other [facility] Comment on above: CAUSES BLISTERING (16 sources) Amoxicillin Drug Allergy 6 Rash [facility] (14 sources) cefdinir Drug Allergy 2 Other [facility] (14 sources) DACTINomycin Drug Allergy 2 Abd cramps/diarrhe a [facility] (16 sources) gabapentin Drug Allergy 7 Unknown [facility] (14 sources) HYDROcodone Drug Allergy 2 Other [facility] Comment on above: DIZZINESS (16 sources) Nortriptyline Drug Allergy 7 Unknown [facility] (14 sources) pregabalin Drug Allergy 2 Other [facility] Comment on above: VERY SLEEPY (16 sources) traMADol Drug Allergy 7 Other [facility] (11 sources) Diclofenac Drug Allergy 3 NEEDS FOLLOW-UP [facility] (11 sources) levoFLOXacin Drug Allergy 3 Swelling [facility] (11 sources) nabumetone Drug Allergy 3 Upset Stomach [facility] (13 sources) Naproxen Drug Allergy 6 Unknown [facility] (11 sources) Nonsteroidal Anti-inflammatory Compounds Allergy to substance 3 NEEDS FOLLOW-UP [facility] (11 sources) oxaprozin Drug Allergy 3 NEEDS FOLLOW-UP [facility] (11 sources) Propoxyphene Drug Allergy 3 NEEDS FOLLOW-UP [facility] (11 sources) bee venom protein (honey bee) Allergy to substance 3 NEEDS FOLLOW-UP [facility] (4 sources) retinol molecular film Allergy to substance 3 Rash [facility] (8 sources) Environmental Allergies: Uncoded; Translations: [Environmental Allergies: Uncoded] Allergy to substance 3 Rash [facility] Comment on above: Retinol molecular fi lm (1 source) Amoxicillin Drug Allergy 5 [facility] Repository (1 source) cefdinir Drug Allergy 5 [facility] (1 source) DACTINomycin Drug Allergy 5 [facility] (1 source) Diclofenac Drug Allergy 5 [facility] (1 source) gabapentin Drug Allergy 5 [facility] (1 source) HYDROcodone Drug Allergy 5 [facility] (1 source) levoFLOXacin Drug Allergy 5 [facility] (1 source) nabumetone Drug Allergy 5 [facility] (1 source) Naproxen Drug Allergy 5 [facility] (1 source) Nortriptyline Drug Allergy 5 [facility] (1 source) NSAIDs Drug allergy (disorder) 5 [facility] (1 source) oxaprozin Drug Allergy 5 [facility] (1 source) pregabalin Drug Allergy 5 [facility] (1 source) Propoxyphene Drug Allergy 5 [facility] (1 source) traMADol Drug Allergy 5 [facility] (1 source) bee venom protein (honey bee) Drug allergy (disorder) 5 [facility] Repository (2 sources) cefdinir Drug Allergy 7 Unknown [email or web address] (2 sources) Clindamycin Drug Allergy 6 Unknown [email or web address] (2 sources) DACTINomycin Drug Allergy 7 Unknown [email or web address] (2 sources) Flurbiprofen Drug Allergy 6 Unknown [email or web address] (2 sources) nabumetone Drug Allergy 6 Nausea Only [facility] (2 sources) Pregabalin Propensity to adverse reactions 7 Other [facility] (2 sources) Wound Dressing Adhesive Propensity to adverse reactions 6 Unknown [facility] (1 source) ALLERGIES NOT ON FILE; Translations: [ALLERGIES NOT ON FILE] Propensity to adverse reactions (disorder) [facility] [place] 1 Repository Medications Current Medications Medication Drug Class(es) Dates Sig (Normalized) Sig (Original) acetaminophen 500 mg oral tablet (20 sources) Start: 03-23-2022 take 1 tablet by mouth once as needed for pain Acetaminophen 500 mg tablet Active 500 mg PO ONCE as needed for Pain March 23, 2022 12:11pm Start: 12-28-2016 End: 03-23-2022 take 2 tablets by mouth every eight hours Acetaminophen 500 MG tablet Discontinued 1000 mg PO EVERY 8 HOURS 90 0 December 28, 2016 1:00am March 23, 2022 12:11pm Start: 12-28-2016 End: 03-23-2022 take 1000 mg by mouth every eight hours Acetaminophen Discontinued 1000 MG PO EVERY 8 HOURS 90 December 28, 2016 1:00am March 23, 2022 12:11pm Start: 12-12-2016 End: 12-28-2016 take 1 tablet by mouth every six hours as needed for pain Acetaminophen (Tylenol Extra Strength) 500 MG tablet Discontinued 500 mg PO EVERY 6 HOURS NEEDED as needed for Pain December 12, 2016 1:00am December 28, 2016 1:28pm Start: 04-17-2014 End: 04-30-2014 Acetaminophen (Tylenol Table t) 325 MG tablet Discontinued 500 mg PO EVERY 6 HOURS NEEDED as needed for Mod-Severe (Pain Scale 6-10) April 17, 2014 12:00am April 30, 2014 11:16am amLODIPine 5 mg oral tablet (8 sources) Dihydropyridine Calcium Channel Amy Start: 06-28-2023 End: 06-21-2024 take 1 tablet by mouth once daily Amlodipine 5 mg tablet Active 5 mg PO DAILY 90 3 June 21, 2024 4:13pm Blood Pressure Test Kit-Medium kit (4 sources) Start: 06-28-2023 Blood Pressure Test Kit-Medium kit Active 0 .Route 1 0 June 28, 2023 12:00am HTN As directed Start: 06-28-2023 Blood Pressure Test Kit-Medium kit Active 0 .Route 1 June 28, 2023 12:00am As directed celecoxib 200 mg oral capsule (20 sources) Nonsteroidal Anti-inflammatory Drug Start: 10-02-2018 take 1 capsule by mouth once daily Celecoxib 200 capsule Active 200 mg PO DAILY October 02, 2018 12:00am Start: 12-12-2016 End: 12-28-2016 take 1 capsule by mouth once daily Celecoxib 200 MG capsule Discontinued 200 mg PO DAILY December 12, 2016 1:00am December 28, 2016 1:28pm Start: 08-01-2013 End: 05-07-2014 take 1 capsule by mouth once daily Celecoxib 200 MG capsule Discontinued 200 mg PO DAILY August 01, 2013 12:00am May 07, 2014 8:33am take 1 capsule by mo uth twice daily celecoxib (CeleBREX) 200 MG capsule Take 200 mg by mouth twice a day. Active 1 ml denosumab 60 mg/ml prefilled syringe (11 sources) RANK Ligand Inhibitor Start: 03-16-2022 Denosumab (Prolia) 60 mg/mL syringe Active 60 mg SC every 6 months March 16, 2022 1:00am Glucos Sul 0wuc-Jhl-Rpkql-C-M n (17 sources) Start: 03-23-2022 take 1 capsule by mouth once daily Glucos Sul 7ulz-Ylw-Pomra-C- Mn Active 1 CAP PO DAILY March 23, 2022 12:10pm Start: 03-23-2022 take 1 capsule by mo uth once daily Glucos Sul 4clg-Ggl-Qpcto-C-Mn Active 1 CAP PO DAILY March 23, 2022 11:10am Start: 10-02-2018 End: 03-23-2022 Glucos Sul 4skc-Bbp-Dgulh-C- Mn Discontinued 1 EACH PO TWICE A DAY October 02, 2018 12:00am March 23, 2022 12:11pm Start: 10-02-2018 End: 03-23-2022 Glucos Sul 6hhg-Bry-Eonvp-C- Mn Discontinued 1 EACH PO TWICE A DAY October 01, 2018 11:00pm March 23, 2022 11:11am Start: 10-02-2018 Glucos Sul 2kc w-Uie-Dskzr-C-Mn Active 1 EACH PO TWICE A DAY October 01, 2018 11:00pm Start: 10-02-2018 Glucos Sul 2kc b-Ikl-Kdxlk-C-Mn Active 1 EACH PO TWICE A DAY October 02, 2018 12:00am Glucos Sul 5wdj-Npz-Mkwgw-C-Mn 550-30-1 mg capsule (4 sources) Start: 03-23-2022 Glucos Sul 4vcs-Rhh-Rmgdu-C-Mn 550-30-1 mg capsule Active 1 NMA PO DAILY March 23, 2022 12:10pm Multivitamin With Folic Acid (10 sources) Start: 08-01-2013 take 1 tablet by mouth once daily Multivitamin With Folic Acid Active 1 TABLET PO DAILY July 31, 2013 11:00pm Start: 08-01-2013 take 1 tablet by annie th once daily Multivitamin With Folic Acid Active 1 TABLET PO DAILY August 01, 2013 12:00am Multivitamin With Folic Acid 1 TABLET tablet (4 sources) Start: 08-01-2013 take 1 tablet by mouth once daily Multivitamin With Folic Acid 1 TABLET tablet Active 1 {tbl} PO DAILY August 01, 2013 12:00am simvastatin 20 mg oral tablet (16 sources) HMG-CoA Reductase Inhibitor Start: 08-01-2013 take 1 tablet by mouth every other day Simvastatin 20 MG tablet Active 20 mg PO EVERY OTHER DAY August 01, 2013 12:00am ubidecarenone 100 mg oral capsule (20 sources) Start: 10-02-2018 take 10 capsules by mouth once daily Coenzyme Q10 100 MG capsule Active 100 mg PO DAILY October 02, 2018 12:00am Start: 08-01-2013 End: 05-07-2014 Coenzyme Q10 (Co Q-10) 100 M G capsule Discontinued 100 mg PO DAILY August 01, 2013 12:00am May 07, 2014 8:33am Completed/Discontinued Medications Medication Drug Class(es) Dates Sig (Normalized) Sig (Original) acetaminophen 325 mg / HYDROcodone bitartrate 5 mg oral tablet (14 sources) Opioid Agonist Start: 04-17-2014 End: 04-30-2014 Hydrocodone-Acetami nophen 1 TABLET tablet Discontinued 1 {tbl} PO NEEDED as needed for Mod-Severe (Pain Scale 6-10) April 17, 2014 12:00am April 30, 2014 11:16am Start: 04-17-2014 End: 04-30-2014 Hydrocodone-Acetaminophen Di scontinued 1 TABLET PO NEEDED April 17, 2014 12:00am April 30, 2014 11:16am aspirin 81 mg delayed release oral tablet (20 sources) Platelet Aggregation Inhibitor, Nonsteroidal Anti-inflammatory Drug Start: 03-23-2022 End: 06-27-2022 Aspirin (Adult Low Dose Aspirin) 81 mg tablet,delayed release (DR/EC) Discontinued 81 mg PO DAILY March 23, 2022 1:00am June 27, 2022 1:13pm Start: 04-30-2014 End: 05-07-2014 take 1 tablet by mouth twice daily at mealtime Aspirin 325 MG tablet Discontinued 325 mg PO TWICE DAILY WITH MEALS 60 0 April 30, 2014 12:00am May 07, 2014 8:34am cholecalciferol 0.025 mg oral capsule (20 sources) Vitamin D Start: 03-21-2022 End: 06-27-2022 take 1 capsule by mouth once daily Cholecalciferol (Vitamin D3) 25 mcg (1,000 unit) capsule Discontinued 25 ug PO DAILY March 21, 2022 1:00am June 27, 2022 1:13pm Start: 10-02-2018 End: 03-16-2022 take 1 capsule by mouth once daily Cholecalciferol (Vitamin D3) 1,000 UNIT capsule Discontinued 1000 U PO DAILY October 02, 2018 12:00am March 16, 2022 3:01pm chondroitin sulfates 400 mg / glucosamine hydrochloride 500 mg / methylsulfonylmethane 83 mg oral tablet (14 sources) Start: 12-12-2016 End: 12-28-2016 take 1 tablet by mouth once daily Glucosamine Aup-Zih-Botpyxirku 1 EACH tablet Discontinued 1 NMA PO DAILY December 12, 2016 1:00am December 28, 2016 1:29pm Start: 12-12-2016 End: 12-28-2016 Glucosamine Acv-Zwu-Wewssxuh tn Discontinued 1 EACH PO DAILY December 12, 2016 1:00am December 28, 2016 1:29pm Coenzyme P95-Zdzopii E (10 sources) Start: 12-12-2016 End: 12-28-2016 Coenzyme E93-Ehlakia E Disco ntinued 1 EACH PO DAILY December 12, 2016 12:00am December 28, 2016 12:29pm Start: 12-12-2016 End: 12-28-2016 Coenzyme R30-Sukreiy E Disco ntinued 1 EACH PO DAILY December 12, 2016 1:00am December 28, 2016 1:29pm Coenzyme C08-Qkbvecx E 1 EACH capsule (4 sources) Start: 12-12-2016 End: 12-28-2016 take 1 capsule by mouth once daily Coenzyme A54-Jxugadh E 1 EACH capsule Discontinued 1 NMA PO DAILY December 12, 2016 1:00am December 28, 2016 1:29pm docusate sodium 50 mg / sennosides, detention 8.6 mg oral tablet (14 sources) Start: 12-28-2016 End: 01-05-2017 take 1 tablet by mouth twice daily as needed Sennosides-Docusate Sodium (Stool Softener-Stimulant Laxat) 1 TABLET tablet Discontinued 2 {tbl} PO TWICE A DAY 20 0 December 28, 2016 1:00am January 05, 2017 12:07pm Take until first bowel movement, then as needed Glucos Sul 2xou-Pfj-Kvnhb-C-Mn 1 EACH capsule (4 sources) Start: 10-02-2018 End: 03-23-2022 take 1 capsule by mouth twice daily Glucos Sul 6pvj-Hhg-Hrmzb-C-Mn 1 EACH capsule Discontinued 1 NMA PO TWICE A DAY October 02, 2018 12:00am March 23, 2022 12:11pm Yshnyoqh-Bmpat-Ikuce-Cf Borate (10 sources) Start: 10-02-2018 End: 03-16-2022 Udhcwrnh-Jauxk-Caqhv-Cf Borate Discontinued 1 EACH PO DAILY October 02, 2018 12:00am March 16, 2022 3:01pm Start: 10-02-2018 End: 03-16-2022 Jcmjuhbg-Immiq-Usvaj-Cf Bora te Discontinued 1 EACH PO DAILY October 01, 2018 11:00pm March 16, 2022 2:01pm Start: 10-02-2018 Glucosam-Chond -Hyalu-Cf Borate Active 1 EACH PO DAILY October 01, 2018 11:00pm Start: 10-02-2018 Glucosam-Chond -Hyalu-Cf Borate Active 1 EACH PO DAILY October 02, 2018 12:00am Vukybsuh-Eogne-Pvuyw-Cf Borate (Move [employer] Tablet) 1 EACH tablet (14 sources) Start: 12-12-2016 End: 12-28-2016 take 1 tablet by mouth once daily Ggtizpxs-Evzgq-Jfevm-Cf Borate (Move [employer] Tablet) 1 EACH tablet Discontinued 1 NMA PO DAILY December 12, 2016 1:00am December 28, 2016 1:29pm Start: 12-12-2016 End: 12-28-2016 take 1 tablet by mouth once daily Xlsqhuan-Rnaku-Xgner-Cf Borate (Move [place] [facility] Tablet) 1 EACH tablet Discontinued 1 EACH PO DAILY December 12, 2016 12:00am December 28, 2016 12:29pm Start: 12-12-2016 End: 12-28-2016 take 1 tablet by mouth once daily Teswsvjt-Cnmku-Cojgk-Cf Borate ([employer] [place] [facility] Tablet) 1 EACH tablet Discontinued 1 EACH PO DAILY December 12, 2016 1:00am December 28, 2016 1:29pm Kxfsgcns-Mdwus-Tvtlm-Cf Bora te 1 EACH tablet (4 sources) Start: 10-02-2018 End: 03-16-2022 Mfoveyjh-Hjfbf-Crpqy-Cf Bora te 1 EACH tablet Discontinued 1 NMA PO DAILY October 02, 2018 12:00am March 16, 2022 3:01pm Lrigdqhelbj-Mafrcamag-Eci C- Mn (10 sources) Start: 04-17-2014 End: 05-07-2014 Cddrxqsevdb-Myvyfbfsp-Kzc C- Mn Discontinued 1 EACH PO DAILY April 16, 2014 11:00pm May 07, 2014 7:33am Start: 04-17-2014 End: 05-07-2014 Zbwrcwqwoot-Ghlqgmiqr-Egr C- Mn Discontinued 1 EACH PO DAILY April 17, 2014 12:00am May 07, 2014 8:33am Vbpungdsief-Icviqqbvn-Nmi C-Mn 1 EACH capsule (4 sources) Start: 04-17-2014 End: 05-07-2014 take 1 capsule by mouth once daily Tkmyqwmqdis-Eiqurszer-Rcs C-Mn 1 EACH capsule Discontinued 1 NMA PO DAILY April 17, 2014 12:00am May 07, 2014 8:33am lisinopril 10 mg oral tablet (17 sources) Angiotensin Converting Enzyme Inhibitor Start: 04-04-2022 End: 06-28-2023 take 1 tablet by mouth once daily Lisinopril 10 mg tablet Discontinued 10 mg PO DAILY 90 3 June 27, 2022 1:31pm June 28, 2023 11:22am meclizine hydrochloride 25 mg oral tablet (14 sources) Antiemetic Start: 06-01-2020 End: 03-16-2022 take 1 tablet by mouth three times daily as needed for dizziness Meclizine 25 MG tablet Discontinued 25 mg PO 3 TIMES DAILY NEEDED as needed for Dizziness June 01, 2020 3:13pm March 16, 2022 3:01pm omeprazole 40 mg delayed release oral capsule (4 sources) Proton Pump Inhibitor Start: 09-15-2023 End: 12-27-2023 take 1 capsule by mouth once daily Omeprazole 40 mg capsule,delayed release(DR/EC) Discontinued 40 mg PO DAILY 30 September 15, 2023 12:00am December 27, 2023 10:41am 2 ml ondansetron 2 mg/ml injection (2 sources) Serotonin-3 Receptor Antagonist Start: 10-15-2024 End: 10-15-2024 4 mg, IntraVENous, Once PRN, nausea, vomiting, Starting on Mon10/15/24 at 1437, For 1 dose, Preprocedure oxyCODONE hydrochloride 5 mg oral tablet (14 sources) Opioid Agonist Start: 12-28-2016 End: 01-05-2017 take 5-10 mg by mouth every four hours as needed for pain Oxycodone 5 MG tablet Discontinued 5 - 10 mg PO EVERY 4 HOURS NEEDED as needed for Pain 60 0 December 28, 2016 1:00am January 05, 2017 12:08pm 5 ml sodium chloride 9 mg/ml injection (12 sources) Start: 10-15-2024 End: 10-15-2024 10 mL, IntraVENous, Every 12 hours scheduled (2 times per day), First dose on Mon10/15/24 at 2100, Preprocedure Start: 10-15-2024 End: 10-15-2024 10 mL, IntraVENous, Every 12 hours scheduled (2 times per day), First dose on Mon10/15/24 at 2100 Start: 10-15-2024 End: 10-15-2024 10 mL, IntraVENous, Every 12 hours scheduled (2 times per day), First dose on Mon10/15/24 at 2100, Preprocedure Start: 10-15-2024 End: 10-15-2024 10 mL, IntraVENous, Every 12 hours scheduled (2 times per day), First dose on Mon10/15/24 at 2100 Start: 10-15-2024 End: 10-15-2024 take 100 mL intravenously every hour as needed, then take 20 mL intravenously every hour as needed 5-250 mL/hr, IntraVENous, PRN, if patient receiving piggyback infusions and maintenance fluids are not ordered OR KVO fluids to protect IV site / prevent frequent line interruptions/ long duration, Starting on Mon10/15/24 at 1437, Preprocedure, For piggyback infusion, administer at same rate as piggyback for a total of 25 mL. Enter 25 mL into dose field and piggyback rate into rate field of order. If piggyback is infusing at a rate less than 100 mL/hr, enter 25 mL into dose field and 100 mL/hr into rate field of order. For KVO fluids, enter rate of 20 mL/hr or less into rate field of order. Start: 10-15-2024 End: 10-15-2024 take 10 mL intravenously once as needed 10 mL, IntraVENous, PRN, line care, Starting on Mon10/15/24 at 1437, Preprocedure, After every IV line use sulfamethoxazole 800 mg / trimethoprim 160 mg oral tablet (14 sources) Dihydrofolate Reductase Inhibitor Antibacterial, Sulfonamide Antimicrobial Start: 10-09-2020 End: 10-16-2020 Sulfamethoxazole-Trimethopri m (Bactrim Ds) 800-160 mg tablet Discontinued 1 {tbl} PO Q12H 14 7 0 October 09, 2020 12:00am October 15, 2020 12:00am October 16, 2020 12:01am Vitamin D3 (14 sources) Start: 08-01-2013 End: 03-16-2022 take 1000 [IU] by mouth once daily Vitamin D3 Discontinued 1000 U PO DAILY August 01, 2013 12:00am March 16, 2022 3:01pm Start: 08-01-2013 End: 03-16-2022 take 1000 [IU] by mouth once daily Vitamin D3 Discontinued 1000 UNITS PO DAILY August 01, 2013 12:00am March 16, 2022 3:01pm Start: 08-01-2013 End: 03-16-2022 take 1000 [IU] by mouth once daily Vitamin D3 Discontinued 1000 UNITS PO DAILY July 31, 2013 11:00pm March 16, 2022 2:01pm Start: 08-01-2013 take 1000 [IU] by mo uth once daily Vitamin D3 Active 1000 UNITS PO DAILY July 31, 2013 11:00pm Start: 08-01-2013 take 1000 [IU] by mo uth once daily Vitamin D3 Active 1000 UNITS PO DAILY August 01, 2013 12:00am Problems Active Problems Problem Classification Problem Date Documented Da te Episodic/Chronic Acute cerebrovascular disease (11 sources) Cerebrovascular accident; Translations: [Cerebral infarction, unspecified] 03-23-2022 Chronic Comment on above: Noted on brain CT in 06/01/20 Cardiac dysrhythmias (17 sources) Atrial tachycardia; Translations: [Supraventricular tachycardia] Onset: 5 03-16-2022 Chronic Chronic obstructive pulmonary disease and bronchiectasis (14 sources) Bronchitis; Translations: [Bronchitis, not specified as acute or chronic] 03-23-2022 Episodic Conditions associated with dizziness or vertigo (14 sources) Lightheadedness; Translations: [Dizziness and giddiness] 06-02-2020 Episodic Crushing injury or internal injury (9 sources) Injury of blood vessels at forearm level; Translations: [Unspecified injury of unspecified blood vessel at forearm level, unspecified arm, initial encounter] 04-08-2022 Episodic Disorders of lipid metabolism (15 sources) Dyslipidemia; Translations: [Hyperlipidemia, unspecified] Onset: 5 10-02-2018 Chronic Esophageal disorders (14 sources) Gastroesophageal reflux disease; Translations: [Gastro-esophageal reflux disease without esophagitis] 10-02-2018 Chronic Essential hypertension (5 sources) Essential hypertension; Translations: [Essential (primary) hypertension] Onset: 5 06-29-2023 Chronic Immunizations and screening for infectious disease (14 sources) Patient encounter status; Translations: [Encounter for screening for COVID-19] 03-23-2022 Episodic Malaise and fatigue (20 sources) Asthenia; Translations: [Other malaise] 10-02-2018 Episodic Menopausal disorders (1 source) Unspecified menopausal and perimenopausal disorder; Translations: [Unspecified menopausal and perimenopausal disorder] Onset: Chronic Nonspecific chest pain (20 sources) Chest pain; Translations: [Chest pain, unspecified] 10-02-2018 Episodic Other circulatory disease (9 sources) Abnormal radial pulse; Translations: [Other specified symptoms and signs involving the circulatory and respiratory systems] 04-08-2022 Episodic Other connective tissue disease (20 sources) History of repair of hip joint; Translations: [Presence of unspecified artificial hip joint] 03-23-2022 Chronic Other connective tissue disease (12 sources) H/O: musculoskeletal disease; Translations: [Personal history of other diseases of the musculoskeletal system and connective tissue] 02-18-2022 Episodic Other gastrointestinal disorders (5 sources) Altered bowel function; Translations: [Change in bowel habit] Onset: 5 09-23-2024 Episodic Other gastrointestinal disorders (3 sources) Complete fecal incontinence; Translations: [Full incontinence of feces] Onset: 5 09-23-2024 Episodic Other gastrointestinal disorders (2 sources) Functional fecal incontinence; Translations: [Full incontinence of feces] 10-15-2024 Episodic Other gastrointestinal disorders (2 sources) Change in bowel habit; Translations: [Change in bowel habit] Onset: 5 Episodic Other gastrointestinal disorders (2 sources) Full incontinence of feces; Translations: [Full incontinence of feces] Onset: 5 Episodic Other nervous system disorders (14 sources) Tremor; Translations: [Tremor, unspecified] 10-03-2018 Episodic Other nervous system disorders (9 sources) Paresthesia of hand ; Translations: [Anesthesia of skin] 04-08-2022 Episodic Other upper respiratory infections (14 sources) Common cold; Translations: [Acute nasopharyngitis [common cold]] 03-23-2022 Episodic Poisoning by nonmedicinal substances (14 sources) Bee sting; Translations: [Toxic effect of venom of bees, accidental (unintentional), initial encounter] 03-23-2022 Episodic Spondylosis; intervertebral disc disorders; other back problems (20 sources) Backache; Translations: [Dorsalgia, unspecified] 03-23-2022 Episodic Urinary tract infections (14 sources) Urinary tract infectious disease; Translations: [Urinary tract infection, site not specified] 03-23-2022 Episodic Past or Other Problems Problem Classification Problem Date Documented Da te Episodic/Chronic Other screening for suspected conditions (not mental disorders or infectious disease) (1 source) Encounter for screening mammogram for malignant neoplasm of breast; Translations: [Encounter for screening mammogram for malignant neoplasm of breast] Onset: 05-07-2024 Episodic Results Test Name Value Interpretation Reference Range Facility XR ABDOMEN 2 VIEWS SUPINE AN D ERECT OR DECUBon 09-23-2024 XR ABDOMEN 2 VIEWS SUPINE AND ERECT OR DECUB Interpreted By: Rachel Mallory, ADDENDUM: No rectal impaction is seen. There is a moderate stool burden noted within the colon. Signed by: Rachel Mallory 10/15/2024 11:18 AM -------- ORIGINAL REPORT -------- Dictation workstation: [id number] Interpreted By: Rachel Mallory, STUDY: XR ABDOMEN 2 VIEWS SUPINE AND ERECT OR DECUB 09/23/2024 3:17 pm INDICATION: Signs/Symptoms:russell e of bowel habits. Fecal incontinence. COMPARISON: None available. ACCESSION NUMBER(S): [id number] ORDERING CLINICIAN: CAMILO IBARRA TECHNIQUE: Recumbent and erect abdominal views FINDINGS: Recumbent view of the abdomen shows a nonspecific bowel gas pattern. No free intraperitoneal air is observed. No organomegaly or soft tissue mass is seen. There is postoperative change from tubal ligation in bilateral bipolar hip arthroplasty. IMPRESSION: No significant intra-abdominal abnormality. No evidence for bowel obstruction or free intraperitoneal air. Postoperative changes as outlined above. Signed by: Rachel Mallory 09/24/2024 8:07 PM Dictation workstation: [id number] [facility] Cardiology Visit Reporton Cardiology Visit Report [facility] [address] [place] [address] OFFICE VISIT Date of Service: 09/19/24 MR#: [id number] Acct: [id number] Name: MARCI RICH Damion Rep #: [id number] : 1940 Provider: Dr. Edward Zarco MD Age/Sex: 84/F Location: [facility] Status: Signed HPI HPI History of Present Illness Details: This is a pleasant 84-year-old lady who presents to the office for a cardiovascular follow-up visit. She underwent a cardiac catheterization on 04/04/2022 which demonstrated normal coronary arteries. She underwent an echocardiogram as well which demonstrated an ejection fraction of 55%, and stage I diastolic dysfunction. From a cardiac standpoint, the patient is doing well. She denies any palpitations, chest pain, pressure or heaviness. She denies SOB, Orthopnea, and PND. She does not have bleeding issues; no blood in urine, stool or nosebleeds. She denies any decrease in energy level, myalgias, or claudication. She does not have edema, or sudden weight gain. She denies dizziness, lightheadedness, syncopal or near syncopal episodes, and headaches. Intake Vital Signs 12/27/23 09:37 09/19/24 13:25 Height 5 ft 6 in 5 ft 6 in Weight: 135 lb 136 lb BMI 21.7 21.9 BP 135/80 H 135/82 H Blood Pressure Location Lt brachial Lt brachial Position Sitting Sitting Respiration 18 16 Pulse 81 86 Pulse Source Monitor Monitor Pulse Oximetry (%) 9 Intake Visit Reasons: 9 M Grade Foreman Required: No Accompanied by: Self Is patient in pain?: No Allergies adhesive tape Allergy (Verified 09/19/24 13:32) Other bee venom protein (honey bee) Allergy (Verified 09/19/24 13:32) NEEDS FOLLOW-UP cefdinir Allergy (Verified 09/19/24 13:32) Other diclofenac (From Voltaren) Allergy (Verified 09/19/24 13:32) NEEDS FOLLOW-UP Environmental Allergies: Uncoded Allergy (Verified 09/19/24 13:32) Rash levofloxacin (From Levaquin) Allergy (Verified 09/19/24 13:32) Swelling naproxen (From Naprosyn) Allergy (Verified 09/19/24 13:32) NEEDS FOLLOW-UP NSAIDS (Non-Steroidal Anti-Inflamma Allergy (Verified 09/19/24 13:32) NEEDS FOLLOW-UP propoxyphene Allergy (Verified 09/19/24 13:32) NEEDS FOLLOW-UP amoxicillin Adverse Reaction (Verified 09/19/24 13:32) Abd cramps/diarrhea dactinomycin Adverse Reaction (Verified 09/19/24 13:32) Abd cramps/diarrhea gabapentin Adverse Reaction (Verified 09/19/24 13:32) Abd cramps/diarrhea hydrocodone (From Vicodin) Adverse Reaction (Verified 09/19/24 13:32) Other nabumetone (From Relafen) Adverse Reaction (Verified 09/19/24 13:32) Upset Stomach nortriptyline Adverse Reaction (Verified 09/19/24 13:32) Abd cramps/diarrhea oxaprozin (From Daypro) Adverse Reaction (Verified 09/19/24 13:32) NEEDS FOLLOW-UP pregabalin (From Lyrica) Adverse Reaction (Verified 09/19/24 13:32) Other tramadol Adverse Reaction (Verified 09/19/24 13:32) Abd cramps/diarrhea Medications ???Medication ???Instructions ???Recorded ???Confirmed ???Type multivitamin with folic acid 400 1 tab PO DAILY 08/01/13 09/19/24 H istory mcg tablet simvastatin 20 mg tablet 20 mg PO QODAY 08/01/13 09/19/24 H istory celecoxib 200 mg capsule 200 mg PO DAILY 10/02/18 09/19/24 History coenzyme Q10 100 mg capsule 100 mg PO DAILY 10/02/18 09/19/24 History denosumab 60 mg/mL subcutaneous 60 mg subcut [id number] 03/16/22 History syringe (Prolia) acetaminophen 500 mg tablet 500 mg PO ONCE PRN Pain 03/23/22 0 09/19/24 History glucosamine sulf dipot 1 cap PO DAILY 03/23/22 09/19/24 H istory chlr,msm,chond 550 mg-C 30 mg-dorota 1 mg capsule blood pressure test kit-[facility] ea 06/28/23 12/27/23 Rx amlodipine 5 mg tablet 5 mg PO DAILY #90 tabs 06/21/24 Rx Have you fallen in the past year?: No PFSH Medical History Fibromyalgia Stroke Vitamin D deficiency Neuropathic pain, leg, bilateral Orthostatic hypotension Sinusitis Bronchitis Fecal incontinence Tremor due to disorder of central nervous system Dizziness and giddiness Degenerative disc disease Hypercholesteremia Rhinitis, allergic Irritable bowel syndrome Chronic osteoarthritis Thoracic back pain Myalgia Osteoporosis Near syncope Atrial tachycardia Acute back pain Encounter for screening for COVID-19 Common cold Debility UTI (urinary tract infection) Bee sting reaction Bronchitis Chronic neck and back pain Knee pain Shoulder pain Arthritis Surgical History History of throat surgery HX: benign breast biopsy H/O tubal ligation History of right hip replacement History of left hip replacement Hip joint replacement status History of hip replacement Family History (Reviewed (more content not included)... Normal [facility] Bone density reportOrdered B y: Norman Martinez on 08-22-2024 Study report Skeletal system DXA [facility] [address] [place] [address] Dexa Bone Density/Append Skel MR#: [id number] Acct: [id number] Name: MARCI RICH Rep #: [id number] : 1940 F 84 From: Bryce Martinez MD PCP: Dr. Joe Bills MD Status: REG C LI Study:Dexa Bone Density/Append Skel Date of E xam: 08/22/24 Exam# [id number] Ordering Dr: Joe Bills MD PROCEDURE: DEXA BONE DENSITY/APPEND SKEL 08/22/2024 REASON FOR EXAM: F, age 84 y/o . Postmenopausal. TECHNIQUE: DEXA BONE DENSITY/APPEND SKEL COMPARISON: Prior study dated August 02, 2022. FINDINGS: BMD and T-SCORES Lumbar spine: 1.083 g/cm2, T-score 0.3 Levels: L1 through L4 Change from prior: Improvement of 4.3%. Left 1/3 radius: 0.457 g/cm2, T-score -2.3 Change from prior: Loss of 1.3%. The World Health Organization has defined the following categories based on bonedensity: Normal bone density: T-score equal to or greater than -1.0 Osteopenia: T-score between -1.0 and -2.5 Osteoporosis: T-score equal to or less than -2.5 The patient does meet the pharmacological treatment recommendations for prevention of osteoporosis. BD/Dexa Bone Density/Append Skel IMPRESSION: OSTEOPENIA. Recommend follow-up as clinically warranted. Reading Location: [facility] CC: Dr. Joe Bills MD ~ Ore Washer: Signed [facility] Dexa Bone Density/Append Ske arnaldo 08-22-2024 Dexa Bone Density/Append Skel [facility] [address] [place] [address] Dexa Bone Density/Append Skel MR#: [id number] Acct: [id number] Name: MARCI RICH Rep #: [id number] : 1940 F 84 From: Norman schmitz MD PCP: Dr. Joe Bills MD Status: [facility] Study: Dexa Bone Density/Append Skel Date of Exam: Exam# [id number] Ordering Dr: Joe Bills MD PROCEDURE: DEXA BONE DENSITY/APPEND SKEL 08/22/2024 REASON FOR EXAM: F, age 84 y/o . Postmenopausal. TECHNIQUE: DEXA BONE DENSITY/APPEND SKEL COMPARISON: Prior study dated August 02, 2022. FINDINGS: BMD and T-SCORES Lumbar spine: 1.083 g/cm2, T-score 0.3 Levels: L1 through L4 Change from prior: Improvement of 4.3%. Left 1/3 radius: 0.457 g/cm2, T-score -2.3 Change from prior: Loss of 1.3%. The World Health Organization has defined the following categories based on bone density: Normal bone density: T-score equal to or greater than -1.0 Osteopenia: T-score between -1.0 and -2.5 Osteoporosis: T-score equal to or less than -2.5 The patient does meet the pharmacological treatment recommendations for prevention of osteoporosis. BD/Dexa Bone Density/Append Skel IMPRESSION: OSTEOPENIA. Recommend follow-up as clinically warranted. Reading Location: [facility] CC: Dr. Joe Bills MD Ore Washer: Signed Normal [facility] Breast imaging reportOrdered By: Vy Manzo on 05-02-2024 Study report [facility] [address] [place], [place] [address] SCRN MAMM (CAD)W/NICK BILAT MR#: [id number] Acct: [id number] Name: MARCI RICH Rep #: [id number] : 1940 F 84 From: Danny Manzo DO PCP: Dr. Joe Bills MD Status: REG C ALEJANDRO Study:SCRN MAMM (CAD)W/NICK BILAT Date of Exa m: 05/02/24 Exam# [id number] Ordering Dr: Joe Bills MD EXAM: SCRN MAMM (CAD)W/NICK BILAT DATE: 05/02/2024 CLINICAL HISTORY: F, Age 84 y/o , SCREENING BREAST CANCER RISK ASSESSMENT: Does not appear to have been calculated. TECHNIQUE: Bilateral screening digital breast tomosynthesis with 2D and 3D images. Computeraided detection. COMPARISON: Prior exam(s) dated 05/02/2023. FINDINGS: TISSUE DENSITY: The breast tissue is composed of scattered area of fibroglandular density. Bilateral Breast Mammographic Findings: No suspicious masses, suspicious clustered microcalcifications, architectural distortion or secondary sign of malignancy is identified in either breast. Benign vascular calcifications and round calcifications are seen in both breast. A radiopaque clip is seen in the left breast. The biopsy was benign. Post biopsy site is stable. BI/SCRN MAMM (CAD)W/NICK BILAT IMPRESSION: Right Breast: BIRADS 2 BENIGN FINDING. Left Breast: BIRADS 2 BENIGN FINDING. OVERALL FINAL ASSESSMENT: BIRADS 2 BENIGN FINDING RECOMMENDATION: Routine annual follow-up in 1 Year A letter with findings and recommendations will be mailed to the patient. Reading Location: [id number] CC: Dr. Joe Bills MD ~ Ore Washer: Signed [facility] SCRN MAMM (CAD)W/NICK BILATo n 05-02-2024 SCRN MAMM (CAD)W/NICK BILAT [facility] [address] [place], [place] [address] SCRN MAMM (CAD)W/NICK BILAT MR#: [id number] Acct: [id number] Name: MARCI RICH Rep #: [id number] : 1940 F 84 From: Vy Baptiste PCP: Dr. Joe Bills MD Status: REG CLI Study: SCRN MAMM (CAD)W/NICK BILAT Date of Exam: 04/07 08/30 Exam# [id number] Ordering Dr: Joe Bills MD EXAM: SCRN MAMM (CAD)W/NICK BILAT DATE: 05/02/2024 CLINICAL HISTORY: F, Age 84 y/o , SCREENING BREAST CANCER RISK ASSESSMENT: Does not appear to have been calculated. TECHNIQUE: Bilateral screening digital breast tomosynthesis with 2D and 3D images. Computer aided detection. COMPARISON: Prior exam(s) dated 05/02/2023. FINDINGS: TISSUE DENSITY: The breast tissue is composed of scattered area of fibroglandular density. Bilateral Breast Mammographic Findings: No suspicious masses, suspicious clustered microcalcifications, architectural distortion or secondary sign of malignancy is identified in either breast. Benign vascular calcifications and round calcifications are seen in both breast. A radiopaque clip is seen in the left breast. The biopsy was benign. Post biopsy site is stable. BI/SCRN MAMM (CAD)W/NICK BILAT IMPRESSION: Right Breast: BIRADS 2 BENIGN FINDING. Left Breast: BIRADS 2 BENIGN FINDING. OVERALL FINAL ASSESSMENT: BIRADS 2 BENIGN FINDING RECOMMENDATION: Routine annual follow-up in 1 Year A letter with findings and recommendations will be mailed to the patient. Reading Location: [id number] CC: Dr. Joe Bills MD Ore Washer: Signed Normal [facility] Anion gap in Serum or Plasma Ordered By: Joe Bills on 04-19-2024 Anion gap [Moles/Vol] 12 mmol/L 5- [facility] BUN/creatinine ratioOrdered By: Joe Bills on 04-19-2024 Urea nitrogen/Creatinine [Mass ratio] 21.6 mg/mg High 10-20 [facility] Bilirubin, totalOrdered By: Joe Bills on 04-19-2024 Bilirubin [Mass/Vol] 0.38 mg/dL 0.00-1.30 [facility] Calculated very low density lipoprotein (VLDL) cholesterol measurementOrdered By: Joe Bills on 04-19-2024 VLDL Cholesterol 18 mg/dL 5-40 [facility] Carbon dioxide, total [Moles /volume] in Central venous bloodOrdered By: Joe Bills on 04-19-2024 CO2 [Moles/Vol] 25.3 mmol/L 21.0-32.0 [facility] Chloride assayOrdered By: Jani Bills on 04-19-2024 Chloride [Moles/Vol] 104 mmol/L 98-108 [facility] Comprehensive Metabolic Prof ilon 04-19-2024 Albumin [Mass/Vol] 4.2 g/dL Normal 3.4-4.8 [facility] Comment on above: Performed By: #### L 506.1001, L500.4100, L500.4050 #### [facility] [address] [place], [address] Albumin/Globulin [Mass ratio] 1.5 {ratio} Normal 0.9-2.4 [facility] Comment on above: Performed By: #### L 506.1001, L500.4100, L500.4050 #### [facility] [address] [place], [address] ALK PHOS 74 U/L Normal 35-104 [facility] Comment on above: Performed By: #### L 506.1001, L500.4100, L500.4050 #### [facility] [address] [place], [address] ALT [Catalytic activity/Vol] 12 U/L Normal <=34 [facility] Comment on above: Performed By: #### L 506.1001, L500.4100, L500.4050 #### [facility] [address] [place], [address] AST [Catalytic activity/Vol] 26 U/L Normal <=31 [facility] Comment on above: Performed By: #### L 506.1001, L500.4100, L500.4050 #### [facility] [address] [place], [address] Bilirubin [Mass/Vol] 0.38 mg/dL Normal 0.00-1.30 [facility] Comment on above: Performed By: #### L 506.1001, L500.4100, L500.4050 #### [facility] [address] [place], [address] BUN/CRE 21.6 RATIO High 10-20 [facility] Comment on above: Performed By: #### L 506.1001, L500.4100, L500.4050 #### [facility] [address] [place], [address] Calcium [Mass/Vol] 9.2 mg/dL Normal 7.6-11.0 [facility] Comment on above: Performed By: #### L 506.1001, L500.4100, L500.4050 #### [facility] [address] [place], [address] Chloride [Moles/Vol] 104 mmol/L Normal 98-108 [facility] Comment on above: Performed By: #### L 506.1001, L500.4100, L500.4050 #### [facility] [address] [place], [address] CO2 [Moles/Vol] 25.3 mmol/L Normal 21.0-32.0 [facility] Comment on above: Performed By: #### L 506.1001, L500.4100, L500.4050 #### [facility] [address] [place], [address] Creatinine [Mass/Vol] 0.83 mg/dL Normal 0.70-1.20 [facility] Comment on above: Performed By: #### L 506.1001, L500.4100, L500.4050 #### [facility] [address] [place], [address] GAP 12 Normal 5-15 [facility] Comment on above: Performed By: #### L 506.1001, L500.4100, L500.4050 #### [facility] [address] [place], [address] GFR/1.73 sq M.predicted among non-blacks MDRD (S/P/Bld) [Vol rate/Area] 69 mL/min/{1.73_m2} Normal >60 [facility] Comment on above: Result Comment: mL/m in/1.73m2 CKD-EPI Creatinine Equation (2020) Performed By: #### L 506.1001, L500.4100, L500.4050 #### [facility] [address] [place], [address] Globulin (S) [Mass/Vol] 2.8 g/dL Normal 2.2-4.2 [facility] Comment on above: Performed By: #### L 506.1001, L500.4100, L500.4050 #### [facility] [address] [place], [address] Glucose [Mass/Vol] 93 mg/dL Normal 70-99 [facility] Comment on above: Performed By: #### L 506.1001, L500.4100, L500.4050 #### [facility] [address] [place], [address] Potassium [Moles/Vol] 4.6 mmol/L Normal 3.3-5.1 [facility] Comment on above: Performed By: #### L 506.1001, L500.4100, L500.4050 #### [facility] [address] [place], [address] Sodium [Moles/Vol] 141 mmol/L Normal 133-145 [facility] Comment on above: Performed By: #### L 506.1001, L500.4100, L500.4050 #### [facility] [address] [place], [address] T PROT 7.0 g/dL Normal 5.9-8.4 [facility] Comment on above: Performed By: #### L 506.1001, L500.4100, L500.4050 #### [facility] [address] [place], [address] Urea nitrogen [Mass/Vol] 18 mg/dL Normal 4-19 [facility] Comment on above: Performed By: #### L 506.1001, L500.4100, L500.4050 #### [facility] [address] [place], [address] GFR/1.73 sq M.predicted valeri g non-blacks MDRD (S/P/Bld) [Vol rate/Area]Ordered By: Joe Bills on 04-19-2024 Estimated GFR (MDRD) Non-Af Amer 69 >60 [facility] Comment on above: mL/min/1.73m2 CKD-EP I Creatinine Equation (2020) L506.1001on 04-19-2024 Vitamin D 25-OH 53.8 ng/mL Normal 30-100 [facility] Comment on above: Result Comment: Yun min D Status Deficiency: <20 ng/mL (50nmol/L) Insufficiency: 20-30 ng/mL (50-75 nmol/L) Sufficiency: 30-100 ng/mL (75-250 nmol/L) Toxicity: >100 ng/mL (>250 nmol/L) Performed By: #### L 506.1001, L500.4100, L500.4050 #### [facility] [address] [place], [address] LDL calc ser/plasOrdered By: Joe Bills on 04-19-2024 LDL Cholesterol, Calculated 110 mg/dL [facility] Comment on above: Yqqgraphrh=449-691 m g/dL & Higher Neqb=967 mg/dL or greater Laboratory - Chemistry and C hemistry - challengeOrdered By: Joe Bills on 04-19-2024 AST [Catalytic activity/Vol] 26 U/L <32 [facility] Lipid Profileon 04-19-2024 CHOL:HDL 2.31 Normal [facility] Comment on above: Performed By: #### L 506.1001, L500.4100, L500.4050 #### [facility] [address] [place], [address] Cholesterol [Mass/Vol] 225 mg/dL High <=[address] [facility] Comment on above: Result Comment: Chol esterol level, Desirable <200 mg/dL Borderline high cholesterol 200-239 mg/dL High cholesterol >=240 mg/dL Recommendations of the NCEP Adult Treatment Panel for the following risk-cutoff thresholds for the [place] P[place] population. Performed By: #### L 506.1001, L500.4100, L500.4050 #### [facility] [address] [place], [address] Cholesterol in HDL [Mass/Vol] 97 mg/dL Normal [facility] Comment on above: Result Comment: Page onal Cholesterol Education Program (NCEP) guidelines: <40 mg/dL: Low HDL-cholesterol (major risk factor for CHD) >= 60 mg/dL: High HDL-cholesterol (negative risk factor for CHD) HDL-cholesterol is affected by a number of factors, e.g. smoking, exercise, hormones, sex and age. Performed By: #### L 506.1001, L500.4100, L500.4050 #### [facility] [address] [place], [address] Cholesterol in LDL [Mass/Vol] 110 mg/dL Normal [facility] Comment on above: Result Comment: Bord klsgan=400-868 mg/dL Higher Dwqi=470 mg/dL or greater Performed By: #### L 506.1001, L500.4100, L500.4050 #### [facility] [address] [place], [address] Cholesterol in VLDL [Mass/Vol] 18 mg/dL Normal 5-40 [facility] Comment on above: Performed By: #### L 506.1001, L500.4100, L500.4050 #### [facility] [address] [place], [address] Triglyceride [Mass/Vol] 90 mg/dL Normal [facility] Comment on above: Result Comment: The drugs N-Acetylcysteine and Metamizole may falsely depress this assay. Normal range: <150 mg/dL Borderline High: 150-199 mg/dL High: 200-499 mg/dL Very High: >500 mg/dL Performed By: #### L 506.1001, L500.4100, L500.4050 #### [facility] [address] [place], [place], [address] Potassium (Unsp spec) [Mass/ Vol]Ordered By: Joe Bills on 04-19-2024 Potassium [Moles/Vol] 4.6 mmol/L 3.3-5.1 [facility] Screening total cholesterol/ high density lipoprotein (HDL) cholesterol ratioOrdered By: Joe Bills on 04-19-2024 Cholesterol.total/Enriqueta sterol in HDL [Mass ratio] 2.31 {ratio} [facility] Serum creatinine measurement (mass/volume)Ordered By: Joe Bills on 04-19-2024 Creatinine [Mass/Vol] 0.83 mg/dL 0.70-1.20 [facility] Serum globulin measurementOr dered By: Joe Bills on 04-19-2024 Globulin (S) [Mass/Vol] 2.8 g/dL 2.2-4.2 [facility] Serum glucose measurement (m ass/volume)Ordered By: Joe Bills on 04-19-2024 Glucose [Mass/Vol] 93 mg/dL 70-99 [facility] Serum or plasma alanine shaikh otransferase (ALT) measurementOrdered By: Joe Bills on 04-19-2024 ALT [Catalytic activity/Vol] 12 U/L <35 [facility] Serum or plasma albumin ekta urement (mass/volume)Ordered By: Joe Bills on 04-19-2024 Albumin [Mass/Vol] 4.2 g/dL 3.4-4.8 [facility] Serum or plasma albumin/glob ulin mass ratioOrdered By: Joe Bills on 04-19-2024 Albumin/Globulin [Mass ratio] 1.5 {ratio} 0.9-2.4 [facility] Serum or plasma alkaline sarah sphatase measurementOrdered By: Joe Bills on 04-19-2024 ALP [Catalytic activity/Vol] 74 U/L 35-104 [facility] Serum or plasma calcium ekta urement (mass/volume)Ordered By: Joe Bills on 04-19-2024 Calcium [Mass/Vol] 9.2 mg/dL 7.6-11.0 [facility] Serum or plasma cholesterol in HDL measurement (mass/volume)Ordered By: Joe Bills on 04-19-2024 Cholesterol in HDL [Mass/Vol] 97 mg/dL >40 [facility] Comment on above: National Cholesterol Education Program (NCEP) guidelines:<40 mg/dL: Low HDL-cholesterol (major risk factor for CHD)>= 60 mg/dL: High HDL-cholesterol (negative risk factor for CHD)HDL-cholesterol is affected by a number of factors, e.g. smoking, exercise, hormones, sex and age. Serum or plasma cholesterol measurement (mass/volume)Ordered By: Joe Bills on 04-19-2024 Cholesterol [Mass/Vol] 225 mg/dL High <[address] [facility] Comment on above: Cholesterol level, D esirable <200 mg/dLBorderline high cholesterol 200-239 mg/dLHigh cholesterol >=240 mg/dLRecommendations of the NCEP Adult Treatment Panel for the following risk-cutoff thresholds for the [place] population. Serum or plasma urea nitroge n measurement (mass/volume)Ordered By: Joe Bills on 04-19-2024 Urea nitrogen [Mass/Vol] 18 mg/dL 4-19 [facility] Sodium levelOrdered By: Joe Bills on 04-19-2024 Sodium [Moles/Vol] 141 mmol/L 133-145 [facility] Total proteinOrdered By: Nicole Bills on 04-19-2024 Protein [Mass/Vol] 7.0 g/dL 5.9-8.4 [facility] Triglycerides measurementOrd ered By: Joe Bills on 04-19-2024 Triglyceride [Mass/Vol] 90 mg/dL <199 [facility] Comment on above: The drugs N-Acetylcy steine and Metamizole may falsely depress this assay. Normal range: <150 mg/dLBorderline High: 150-199 mg/dLHigh: 200-499 mg/dLVery High: >500 mg/dL Vitamin D, 25-hydroxyOrdered By: Joe Bills on 04-19-2024 Vitamin D 25-Hydroxy 53.8 ng/mL 30-100 [facility] Comment on above: Vitamin D StatusDefi ciency: <20 ng/mL (50nmol/L)Insufficiency: 20-30 ng/mL (50-75 nmol/L)Sufficiency: 30-100 ng/mL (75-250 nmol/L)Toxicity: >100 ng/mL (>250 nmol/L) Cardiology Visit Reporton Cardiology Visit Report [facility] [address] [place] [address] OFFICE VISIT Date of Service: 12/27/23 MR#: [id number] Acct: [id number] Name: MARCI RICH Rep #: [id number] : 1940 Provider: ZAHRA canchola Age/Sex: 83/F Location: [facility] [place] Status: Signed HPI HPI History of Present Illness Details: This is a pleasant 83-year-old lady who presents to the office for a cardiovascular follow-up visit. She was previously evaluated for palpitations and chest burning. She says that she has been having this chest burning more frequently in the center of her chest and radiating to her shoulder and back it occurs with exertion and sometimes with rest. She did call the emergency medical squad who picked her up and gave her nitroglycerin and aspirin with improvement in her discomfort. She also has some palpitations at night. She had complained of some palpitations in January and underwent a 7-day monitor which demonstrated predominantly normal sinus rhythm with episodes of atrial tachycardia with the longest being a 13 beat run with an average of 134 bpm. Occasional premature atrial and ventricular complexes were noted. She has had occasional dizziness and a headache. She had been seen in the emergency room blood work was done which was thought to be normal and she was discharged. She underwent a cardiac catheterization on 04/04/2022 which demonstrated normal coronary arteries. She underwent an echocardiogram as well which demonstrated an ejection fraction of 55%, and stage I diastolic dysfunction. From a cardiac standpoint, the patient is doing well. She denies any palpitations, chest pain, pressure or heaviness. She denies SOB, Orthopnea, and PND. She does not have bleeding issues; no blood in urine, stool or nosebleeds. She denies any decrease in energy level, myalgias, or claudication. She does not have edema, or sudden weight gain. She denies dizziness, lightheadedness, syncopal or near syncopal episodes, and headaches. Intake Vital Signs 06/28/23 11:07 09/15/23 13:28 12/27/23 09:37 Height 5 ft 6 in 5 ft 6 in 5 ft 6 in Weight: 135 lb BMI 21.7 BP 135/80 H Blood Pressure Location Lt brachial Position Sitting Respiration 18 Pulse 81 Pulse Source Monitor Pulse Oximetry (%) 9 Intake Visit Reasons: 6 M FU Grade Foreman Required: No Is patient in pain?: No Allergies adhesive tape Allergy (Verified 12/27/23 09:45) Other bee venom protein (honey bee) Allergy (Verified 12/27/23 09:45) NEEDS FOLLOW-UP cefdinir Allergy (Verified 12/27/23 09:45) Other diclofenac (From Voltaren) Allergy (Verified 12/27/23 09:45) NEEDS FOLLOW-UP Environmental Allergies: Uncoded Allergy (Verified 12/27/23 09:45) Rash levofloxacin (From Levaquin) Allergy (Verified 12/27/23 09:45) Swelling naproxen (From Naprosyn) Allergy (Verified 12/27/23 09:45) NEEDS FOLLOW-UP NSAIDS (Non-Steroidal Anti-Inflamma Allergy (Verified 12/27/23 09:45) NEEDS FOLLOW-UP propoxyphene Allergy (Verified 12/27/23 09:45) NEEDS FOLLOW-UP amoxicillin Adverse Reaction (Verified 12/27/23 09:45) Abd cramps/diarrhea dactinomycin Adverse Reaction (Verified 12/27/23 09:45) Abd cramps/diarrhea gabapentin Adverse Reaction (Verified 12/27/23 09:45) Abd cramps/diarrhea hydrocodone (From Vicodin) Adverse Reaction (Verified 12/27/23 09:45) Other nabumetone (From Relafen) Adverse Reaction (Verified 12/27/23 09:45) Upset Stomach nortriptyline Adverse Reaction (Verified 12/27/23 09:45) Abd cramps/diarrhea oxaprozin (From Daypro) Adverse Reaction (Verified 12/27/23 09:45) NEEDS FOLLOW-UP pregabalin (From Lyrica) Adverse Reaction (Verified 12/27/23 09:45) Other tramadol Adverse Reaction (Verified 12/27/23 09:45) Abd cramps/diarrhea Medications ???Medication ???Instructions ???Recorded ???Confirmed ???Type multivitamin with folic acid 400 1 tab PO DAILY 08/01/13 12/27/23 History mcg tablet simvastatin 20 mg tablet 20 mg PO QODAY 08/01/13 12/27/23 History celecoxib 200 mg capsule 200 mg PO DAILY 10/02/18 12/27/23 History coenzyme Q10 100 mg capsule 100 mg PO DAILY 10/02/18 12/27/23 History denosumab 60 mg/mL subcutaneous 60 mg subcut [id number] 03/16/22 12/27/23 History syringe (Prolia) acetaminophen 500 mg tablet 500 mg PO ONCE PRN Pain 03/23/22 12/27/23 History glucosamine sulf dipot 1 cap PO DAILY 03/23/22 12/27/23 History chlr,msm,chond 550 mg-C 30 mg-dorota 1 mg capsule amlodipine 5 mg tablet 5 mg PO DAILY #30 tabs 06/28/23 12/27/23 Rx blood pressure test kit-medium #1 ea 06/28/23 12/27/23 Rx Have you fallen in the past year?: Yes PFSH Medical History (Reviewed 12/27/23 @ 09:45 by Edita Aldridge ULTIMATE HOOPS REFEREE, ULTIMATE HOOPS REFEREE-C) Fibromyalgia Stroke Vitamin D deficiency Neuropathic pain, leg, bilateral Orthostatic hypotension Sinusitis (more content not included)... Normal [facility] Basophil percentageOrdered B y: Joe Bills on 04-17-2023 Bilirubin [Mass/Vol] 0.30 mg/dL 0.20-1.00 [facility] Comment on above: For patients on eltr ombopag therapy, use of Dimension [place] TBIL is not recommended. Chloride [Moles/Vol] 108 mmol/L 98-107 [facility] Cholesterol [Mass/Vol] 192 mg/dL <[address] [facility] Comment on above: <200 mg/dL Desirable 200-240 mg/dL Borderline >240 mg/dL High Risk Glucose [Mass/Vol] 96 mg/dL 74-106 [facility] Potassium [Moles/Vol] 4.3 mmol/L 3.5-5.1 [facility] Protein [Mass/Vol] 6.7 g/dL 6.4-8.2 [facility] Sodium [Moles/Vol] 141 mmol/L 136-145 [facility] Triglyceride [Mass/Vol] 104 mg/dL <199 [facility] Comment on above: The drugs N-Acetylcy steine and Metamizole may falsely depress this assay.Serum Triglycerides Reference Interval Normal <150 mg/dL Borderline high 150 - 199 mg/dL High 200 - 499 mg/dL Very High > or = 500 mg/dL Laboratory - Chemistry and C hemistry - challengeOrdered By: Joe Bills on 04-17-2023 Albumin/Globulin [Mass ratio] 1.1 {ratio} 0.9-2.4 [facility] ALP [Catalytic activity/Vol] 71 U/L 45-117 [facility] ALT [Catalytic activity/Vol] 17 U/L 13-56 [facility] Cholesterol in HDL [Mass/Vol] 81 mg/dL >40 [facility] Comment on above: The drugs N-Acetylcy steine and Metamizole may falsely depress this assay. Reference Range HDL <40 mg/dL Low HDL Cholesterol HDL >or= 60 mg/dL High HDL Cholesterol Cholesterol in LDL [Mass/Vol] 90 mg/dL 0-130 [facility] CO2 [Moles/Vol] 27.0 mmol/L 21.0-32.0 [facility] Globulin (S) [Mass/Vol] 3.2 g/dL 2.2-4.2 [facility] Urea nitrogen/Creatinine [Mass ratio] 25.8 mg/mg 10-20 [facility] No Panel InformationOrdered By: Joe Bills on 04-17-2023 Estimated GFR (MDRD) Amer 86 mL/min >60 [facility] Comment on above: GFR Calc Estimated GFR (MDRD) Non-Af Amer 71 mL/min >60 [facility] Comment on above: Non- GFR Calc Vitamin D 25-Hydroxy 47.6 ng/mL [facility] Comment on above: Vitamin D 25(OH) Sta tus Range Deficiency <20 ng/mL (50nmol/L) Insufficiency 20 - 30 ng/mL (50 - 75 nmol/L) Sufficiency 30 - 100 ng/mL (75 - 250 nmol/L) Toxicity >100 ng/mL (>250 nmol/L) VLDL Cholesterol 21 mg/dL 5-40 [facility] Serum or plasma calcium ekta urement (mass/volume)Ordered By: Joe Bills on 04-17-2023 Calcium [Mass/Vol] 9.1 mg/dL 8.5-10.1 [facility] Serum or plasma creatinine m easurement (mass/volume)Ordered By: Joe Bills on 04-17-2023 Creatinine [Mass/Vol] 0.82 mg/dL 0.55-1.02 [facility] Comment on above: The validity of the calculated GFR & GFRAA in patients over 70 years has not been determined. Clinical correlation is essential. Serum or plasma urea nitroge n measurement (mass/volume)Ordered By: Joe Bills on 04-17-2023 Urea nitrogen [Mass/Vol] 21 mg/dL 7-18 [facility] Thin prep Papanicolaou smear with manual screeningOrdered By: Joe Bills on 04-17-2023 Thin prep Papanicolaou smear with manual screening 3.5 g/dL 3.2-5.0 [facility] Thin prep Papanicolaou smear with manual screening 18 U/L 15-37 [facility] Thin prep Papanicolaou smear with manual screening 6 5-15 [facility] Basophil percentageOrdered B y: Dr. Bills on 04-18-2022 Chloride [Moles/Vol] 107 mmol/L 98-107 [facility] Cholesterol [Mass/Vol] 191 mg/dL <[address] [facility] Comment on above: <200 mg/dL Desirable 200-240 mg/dL Borderline >240 mg/dL High Risk Glucose [Mass/Vol] 98 mg/dL 74-106 [facility] Potassium [Moles/Vol] 4.1 mmol/L 3.5-5.1 [facility] Sodium [Moles/Vol] 142 mmol/L 136-145 [facility] Triglyceride [Mass/Vol] 93 mg/dL <199 [facility] Comment on above: The drugs N-Acetylcy steine and Metamizole may falsely depress this assay.Serum Triglycerides Reference Interval Normal <150 mg/dL Borderline high 150 - 199 mg/dL High 200 - 499 mg/dL Very High > or = 500 mg/dL Laboratory - Chemistry and C hemistry - challengeOrdered By: Dr. Bills on 04-18-2022 CO2 [Moles/Vol] 29.0 mmol/L 21.0-32.0 [facility] Urea nitrogen/Creatinine [Mass ratio] 27.6 mg/mg 10-20 [facility] No Panel InformationOrdered By: Dr. Bills on 04-18-2022 Estimated GFR (MDRD) Amer 98 mL/min >60 [facility] Comment on above: GFR Calc Estimated GFR (MDRD) Non-Af Amer 81 mL/min >60 [facility] Comment on above: Non- GFR Calc Vitamin D 25-Hydroxy 123.2 ng/mL [facility] Comment on above: Vitamin D 25(OH) Sta tus Range Deficiency <20 ng/mL (50nmol/L) Insufficiency 20 - 30 ng/mL (50 - 75 nmol/L) Sufficiency 30 - 100 ng/mL (75 - 250 nmol/L) Toxicity >100 ng/mL (>250 nmol/L)Evidence suggests that patients undergoing fluorescein dye angiography can retain small amounts of fluorescein in the body for up to 48 to 72 hours post-treatment. In the cases of patients with renal insufficiency, retention could be much longer. Samples containing fluorescein can produce falsely elevated values when tested with the [employer] Centaur Vitamin D assay. With fluorescein interference, observed Vitamin D values can be as high as >150 ng/mL (>375 nmol/L). Samples should be resubmitted post fluorescein clearance to ensure there is no interference with Vitamin D test results. Serum or plasma calcium ekta urement (mass/volume)Ordered By: Dr. Bills on 04-18-2022 Calcium [Mass/Vol] 8.7 mg/dL 8.5-10.1 [facility] Serum or plasma cholesterol in HDL measurement (mass/volume)Ordered By: Dr. Bills on 04-18-2022 Cholesterol in HDL [Mass/Vol] 78 mg/dL >40 [facility] Comment on above: The drugs N-Acetylcy steine and Metamizole may falsely depress this assay. Reference Range HDL <40 mg/dL Low HDL Cholesterol HDL >or= 60 mg/dL High HDL Cholesterol Serum or plasma cholesterol in VLDL measurement (mass/volume)Ordered By: Dr. Bills on 04-18-2022 Cholesterol in VLDL [Mass/Vol] 19 mg/dL 5-40 [facility] Serum or plasma creatinine m easurement (mass/volume)Ordered By: Dr. Bills on 04-18-2022 Creatinine [Mass/Vol] 0.72 mg/dL 0.55-1.02 [facility] Comment on above: The validity of the calculated GFR & GFRAA in patients over 70 years has not been determined. Clinical correlation is essential. Serum or plasma low density lipoprotein (LDL) cholesterol measurement (mass/volume)Ordered By: Dr. Bills on 04-18-2022 Cholesterol in LDL [Mass/Vol] 94 mg/dL 0-130 [facility] Serum or plasma urea nitroge n measurement (mass/volume)Ordered By: Dr. Bills on 04-18-2022 Urea nitrogen [Mass/Vol] 20 mg/dL 7-18 [facility] Thin prep Papanicolaou smear with manual screeningOrdered By: Dr. Bills on 04-18-2022 Thin prep Papanicolaou smear with manual screening 6 5-15 [facility] Absolute lymphocyte countOrd ered By: Dr. Zarco on 03-23-2022 Lymphocytes Auto (Unsp spec) [#/Vol] 1.26 10*3/uL 0.83-4.51 [facility] Basophil percentageOrdered B y: Dr. Zarco on 03-23-2022 Basophils/100 WBC (Bld) 0.8 % 0-1 [facility] Chloride [Moles/Vol] 105 mmol/L 98-107 [facility] Eosinophils/100 WBC (Bld) 0.9 % 0-5 [facility] Glucose [Mass/Vol] 101 mg/dL 74-106 [facility] Comment on above: Fasting Glucose resu lt from 100 to 125 mg/dL suggests IMPAIRED HOMEOSTASIS per A.D.A. criteria. Neutrophils (Bld) [#/Vol] 8.3 10*3/uL 2.0-7.7 [facility] Neutrophils/100 WBC (Bld) 81.1 % 47-70 [facility] Potassium [Moles/Vol] 4.3 mmol/L 3.5-5.1 [facility] Sodium [Moles/Vol] 142 mmol/L 136-145 [facility] WBC (Bld) [#/Vol] 10.2 10*3/uL 4.4-11.0 [facility] Blood erythrocytes count (nu mber/volume)Ordered By: Dr. Zarco on 03-23-2022 RBC (Bld) [#/Vol] 4.68 10*6/uL 4.2-5.4 [facility] Blood hemoglobin measurement (mass/volume)Ordered By: Dr. Zarco on 03-23-2022 Hemoglobin (Bld) [Mass/Vol] 14.8 g/dL 12.0-15.0 [facility] Blood lymphocytes/100 leukoc ytesOrdered By: Dr. Zarco on 03-23-2022 Lymphocytes/100 WBC (Bld) 12.3 % 19-41 [facility] Blood monocytes/100 leukocyt esOrdered By: Dr. Zarco on 03-23-2022 Monocytes/100 WBC (Bld) 4.5 % 0-10 [facility] Blood platelet mean volumeOr dered By: Dr. Zarco on 03-23-2022 Platelet mean volume (Bld) [Entitic vol] 10.0 fL 6.2-12.0 [facility] Determination of erythrocyte mean corpuscular volume (MCV)Ordered By: Dr. Zarco on 03-23-2022 MCV (RBC) [Entitic vol] 98.5 fL 81-99 [facility] Hematocrit Auto (Bld) [Volum e fraction]Ordered By: Dr. Zarco on 03-23-2022 Hematocrit (Bld) [Volume fraction] 46.1 % 37-47 [facility] Laboratory - Chemistry and C hemistry - challengeOrdered By: Dr. Zarco on 03-23-2022 CO2 [Moles/Vol] 29.0 mmol/L 21.0-32.0 [facility] Urea nitrogen/Creatinine [Mass ratio] 28.9 mg/mg 10-20 [facility] Laboratory - Hematology and Cell countsOrdered By: Dr. Zarco on 03-23-2022 Erythrocyte distribution width (RBC) [Entitic vol] 46.2 fL 35.1-43.9 [facility] Erythrocyte distribution width (RBC) [Ratio] 12.9 % 11.6-14.6 [facility] Immature granulocytes/100 WBC (Bld) 0.400 % 0.0-0.9 [facility] Comment on above: IG% - Immature Granu locytes (promyelocytes, myelocytes and metamyelocytes) > 1% indicates that a LEFT SHIFT is Present. MCH (RBC) [Entitic mass] 31.6 pg 27.0-32.0 [facility] Nucleated RBC/100 WBC (Bld) [Ratio] 0 % 0-5 [facility] MCHC Auto (RBC) [Mass/Vol]Or dered By: Dr. Zarco on 03-23-2022 MCHC (RBC) [Mass/Vol] 32.1 g/dL 32-36 [facility] No Panel InformationOrdered By: Dr. Zarco on 03-23-2022 Estimated GFR (MDRD) Amer 104 mL/min >60 [facility] Comment on above: GFR Calc Estimated GFR (MDRD) Non-Af Amer 86 mL/min >60 [facility] Comment on above: Non- GFR Calc Platelets bldOrdered By: Dr. Zarco on 03-23-2022 Platelets (Bld) [#/Vol] 394 10*3/uL 150-450 [facility] Serum or plasma calcium ekta urement (mass/volume)Ordered By: Dr. Zarco on 03-23-2022 Calcium [Mass/Vol] 9.4 mg/dL 8.5-10.1 [facility] Serum or plasma creatinine m easurement (mass/volume)Ordered By: Dr. Zarco on 03-23-2022 Creatinine [Mass/Vol] 0.69 mg/dL 0.55-1.02 [facility] Comment on above: The validity of the calculated GFR & GFRAA in patients over 70 years has not been determined. Clinical correlation is essential. Serum or plasma urea nitroge n measurement (mass/volume)Ordered By: Dr. Zarco on 03-23-2022 Urea nitrogen [Mass/Vol] 20 mg/dL 7-18 [facility] Thin prep Papanicolaou smear with manual screeningOrdered By: Dr. Zarco on 03-23-2022 Thin prep Papanicolaou smear with manual screening 8 5-15 [facility] Absolute lymphocyte countOrd ered By: Dr. Roe on 02-10-2022 Lymphocytes Auto (Unsp spec) [#/Vol] 1.55 10*3/uL 0.83-4.51 [facility] Basophil percentageOrdered B y: Dr. Roe on 02-10-2022 Basophils/100 WBC (Bld) 0.7 % 0-1 [facility] Chloride [Moles/Vol] 106 mmol/L 98-107 [facility] Eosinophils/100 WBC (Bld) 4.0 % 0-5 [facility] Glucose [Mass/Vol] 101 mg/dL 74-106 [facility] Comment on above: Fasting Glucose resu lt from 100 to 125 mg/dL suggests IMPAIRED HOMEOSTASIS per A.D.A. criteria. Neutrophils (Bld) [#/Vol] 4.3 10*3/uL 2.0-7.7 [facility] Neutrophils/100 WBC (Bld) 64.8 % 47-70 [facility] Potassium [Moles/Vol] 4.0 mmol/L 3.5-5.1 [facility] Sodium [Moles/Vol] 139 mmol/L 136-145 [facility] WBC (Bld) [#/Vol] 6.7 10*3/uL 4.4-11.0 [facility] Blood erythrocytes count (nu mber/volume)Ordered By: Dr. Roe on 02-10-2022 RBC (Bld) [#/Vol] 4.90 10*6/uL 4.2-5.4 [facility] Blood hemoglobin measurement (mass/volume)Ordered By: Dr. Roe on 02-10-2022 Hemoglobin (Bld) [Mass/Vol] 15.7 g/dL 12.0-15.0 [facility] Blood lymphocytes/100 leukoc ytesOrdered By: Dr. Roe on 02-10-2022 Lymphocytes/100 WBC (Bld) 23.1 % 19-41 [facility] Blood monocytes/100 leukocyt esOrdered By: Dr. Roe on 02-10-2022 Monocytes/100 WBC (Bld) 7.0 % 0-10 [facility] Blood platelet mean volumeOr dered By: Dr. Roe on 02-10-2022 Platelet mean volume (Bld) [Entitic vol] 10.1 fL 6.2-12.0 [facility] Determination of erythrocyte mean corpuscular volume (MCV)Ordered By: Dr. Roe on 02-10-2022 MCV (RBC) [Entitic vol] 98.6 fL 81-99 [facility] Hematocrit Auto (Bld) [Volum e fraction]Ordered By: Dr. Roe on 02-10-2022 Hematocrit (Bld) [Volume fraction] 48.3 % 37-47 [facility] Laboratory - Chemistry and C hemistry - challengeOrdered By: Dr. Roe on 02-10-2022 CO2 [Moles/Vol] 28.0 mmol/L 21.0-32.0 [facility] Urea nitrogen/Creatinine [Mass ratio] 28.2 mg/mg 10-20 [facility] Laboratory - Hematology and Cell countsOrdered By: Dr. Roe on 02-10-2022 Erythrocyte distribution width (RBC) [Entitic vol] 48.8 fL 35.1-43.9 [facility] Erythrocyte distribution width (RBC) [Ratio] 13.2 % 11.6-14.6 [facility] Immature granulocytes/100 WBC (Bld) 0.400 % 0.0-0.9 [facility] Comment on above: IG% - Immature Granu locytes (promyelocytes, myelocytes and metamyelocytes) > 1% indicates that a LEFT SHIFT is Present. MCH (RBC) [Entitic mass] 32.0 pg 27.0-32.0 [facility] Nucleated RBC/100 WBC (Bld) [Ratio] 0 % 0-5 [facility] MCHC Auto (RBC) [Mass/Vol]Or dered By: Dr. Roe on 02-10-2022 MCHC (RBC) [Mass/Vol] 32.5 g/dL 32-36 [facility] No Panel InformationOrdered By: Dr. Roe on 02-10-2022 Estimated Creatinine Clearance Calc 39.90 ml/min [facility] Estimated GFR (MDRD) Amer 101 mL/min >60 [facility] Comment on above: GFR Calc Estimated GFR (MDRD) Non-Af Amer 84 mL/min >60 [facility] Comment on above: Non- GFR Calc Troponin I High Sensitivity 7 pg/mL 3.0-54.0 [facility] Comment on above: Please Note: New Ilana t Units and Gender Specific Reference Ranges. For more information see Policy Stat Procedure [place] High Sensitivity Troponin (TNIH) and attachments. Platelets bldOrdered By: Dr. Roe on 02-10-2022 Platelets (Bld) [#/Vol] 392 10*3/uL 150-450 [facility] Serum or plasma calcium ekta urement (mass/volume)Ordered By: Dr. Roe on 02-10-2022 Calcium [Mass/Vol] 10.0 mg/dL 8.5-10.1 [facility] Serum or plasma creatinine m easurement (mass/volume)Ordered By: Dr. Roe on 02-10-2022 Creatinine [Mass/Vol] 0.71 mg/dL 0.55-1.02 [facility] Comment on above: The validity of the calculated GFR & GFRAA in patients over 70 years has not been determined. Clinical correlation is essential. Serum or plasma urea nitroge n measurement (mass/volume)Ordered By: Dr. Roe on 02-10-2022 Urea nitrogen [Mass/Vol] 20 mg/dL 7-18 [facility] Thin prep Papanicolaou smear with manual screeningOrdered By: Dr. Roe on 02-10-2022 Thin prep Papanicolaou smear with manual screening 5 5-15 [facility] Absolute lymphocyte countOrd ered By: Dr. Bills on 01-06-2022 Lymphocytes Auto (Unsp spec) [#/Vol] 1.50 10*3/uL 0.83-4.51 [facility] Basophil percentageOrdered B y: Dr. Bills on 01-06-2022 Basophils/100 WBC (Bld) 0.5 % 0-1 [facility] Chloride [Moles/Vol] 103 mmol/L 98-107 [facility] Eosinophils/100 WBC (Bld) 1.0 % 0-5 [facility] Glucose [Mass/Vol] 93 mg/dL 74-106 [facility] Neutrophils (Bld) [#/Vol] 5.6 10*3/uL 2.0-7.7 [facility] Neutrophils/100 WBC (Bld) 71.6 % 47-70 [facility] Potassium [Moles/Vol] 4.5 mmol/L 3.5-5.1 [facility] Sodium [Moles/Vol] 140 mmol/L 136-145 [facility] WBC (Bld) [#/Vol] 7.8 10*3/uL 4.4-11.0 [facility] Blood erythrocytes count (nu mber/volume)Ordered By: Dr. Bills on 01-06-2022 RBC (Bld) [#/Vol] 4.79 10*6/uL 4.2-5.4 [facility] Blood hemoglobin measurement (mass/volume)Ordered By: Dr. Bills on 01-06-2022 Hemoglobin (Bld) [Mass/Vol] 15.1 g/dL 12.0-15.0 [facility] Blood lymphocytes/100 leukoc ytesOrdered By: Dr. Bills on 01-06-2022 Lymphocytes/100 WBC (Bld) 19.3 % 19-41 [facility] Blood monocytes/100 leukocyt esOrdered By: Dr. Bills on 01-06-2022 Monocytes/100 WBC (Bld) 7.3 % 0-10 [facility] Blood platelet mean volumeOr dered By: Dr. Bills on 01-06-2022 Platelet mean volume (Bld) [Entitic vol] 10.9 fL 6.2-12.0 [facility] Determination of erythrocyte mean corpuscular volume (MCV)Ordered By: Dr. Bills on 01-06-2022 MCV (RBC) [Entitic vol] 99.6 fL 81-99 [facility] Hematocrit Auto (Bld) [Volum e fraction]Ordered By: Dr. Bills on 01-06-2022 Hematocrit (Bld) [Volume fraction] 47.7 % 37-47 [facility] Laboratory - Chemistry and C hemistry - challengeOrdered By: Dr. Bills on 01-06-2022 CO2 [Moles/Vol] 29.0 mmol/L 21.0-32.0 [facility] Urea nitrogen/Creatinine [Mass ratio] 23.5 mg/mg 10-20 [facility] Laboratory - Hematology and Cell countsOrdered By: Dr. Bills on 01-06-2022 Erythrocyte distribution width (RBC) [Entitic vol] 49.1 fL 35.1-43.9 [facility] Erythrocyte distribution width (RBC) [Ratio] 13.3 % 11.6-14.6 [facility] Immature granulocytes/100 WBC (Bld) 0.300 % 0.0-0.9 [facility] Comment on above: IG% - Immature Granu locytes (promyelocytes, myelocytes and metamyelocytes) > 1% indicates that a LEFT SHIFT is Present. MCH (RBC) [Entitic mass] 31.5 pg 27.0-32.0 [facility] Nucleated RBC/100 WBC (Bld) [Ratio] 0 % 0-5 [facility] MCHC Auto (RBC) [Mass/Vol]Or dered By: Dr. Bills on 01-06-2022 MCHC (RBC) [Mass/Vol] 31.7 g/dL 32-36 [facility] No Panel InformationOrdered By: Dr. Bills on 01-06-2022 Estimated GFR (MDRD) Amer 93 mL/min >60 [facility] Comment on above: GFR Calc Estimated GFR (MDRD) Non-Af Amer 76 mL/min >60 [facility] Comment on above: Non- GFR Calc Platelets bldOrdered By: Dr. Bills on 01-06-2022 Platelets (Bld) [#/Vol] 316 10*3/uL 150-450 [facility] Serum or plasma calcium ekta urement (mass/volume)Ordered By: Dr. Bills on 01-06-2022 Calcium [Mass/Vol] 9.4 mg/dL 8.5-10.1 [facility] Serum or plasma creatinine m easurement (mass/volume)Ordered By: Dr. Bills on 01-06-2022 Creatinine [Mass/Vol] 0.77 mg/dL 0.55-1.02 [facility] Comment on above: The validity of the calculated GFR & GFRAA in patients over 70 years has not been determined. Clinical correlation is essential. Serum or plasma urea nitroge n measurement (mass/volume)Ordered By: Dr. Bills on 01-06-2022 Urea nitrogen [Mass/Vol] 18 mg/dL 7-18 [facility] Thin prep Papanicolaou smear with manual screeningOrdered By: Dr. Bills on 01-06-2022 Thin prep Papanicolaou smear with manual screening 8 5-15 [facility] Absolute lymphocyte counton 09-22-2021 Lymphocytes Auto (Unsp spec) [#/Vol] 2.01 10*3/uL 0.83-4.51 [facility] Work Phone: Basophil percentageon 2021 Basophil percentage 5-10 SEEN /hpf 0-5 [facility] Work Phone: Basophils/100 WBC (Bld) 0.6 % 0-1 [facility] Work Phone: Chloride [Moles/Vol] 105 mmol/L 98-107 [facility] Work Phone: Eosinophils/100 WBC (Bld) 1.0 % 0-5 [facility] Work Phone: Glucose [Mass/Vol] 104 mg/dL 74-106 [facility] Work Phone: Comment on above: Fasting Glucose resu lt from 100 to 125 mg/dL suggests IMPAIRED HOMEOSTASIS per A.D.A. criteria. Neutrophils (Bld) [#/Vol] 5.0 10*3/uL 2.0-7.7 [facility] Work Phone: Neutrophils/100 WBC (Bld) 64.6 % 47-70 [facility] Work Phone: Potassium [Moles/Vol] 4.2 mmol/L 3.5-5.1 [facility] Work Phone: Sodium [Moles/Vol] 143 mmol/L 136-145 [facility] Work Phone: WBC (Bld) [#/Vol] 7.7 10*3/uL 4.4-11.0 [facility] Work Phone: Bilirubin Test strip Ql (U)o n 09-22-2021 Bilirubin Ql (U) Negative Negative [facility] Work Phone: Blood erythrocytes count (nu mber/volume)on 09-22-2021 RBC (Bld) [#/Vol] 4.54 10*6/uL 4.2-5.4 [facility] Work Phone: Blood hemoglobin measurement (mass/volume)on 09-22-2021 Hemoglobin (Bld) [Mass/Vol] 14.2 g/dL 12.0-15.0 [facility] Work Phone: Blood lymphocytes/100 leukoc yteson 09-22-2021 Lymphocytes/100 WBC (Bld) 26.0 % 19-41 [facility] Work Phone: Blood monocytes/100 leukocyt eson 09-22-2021 Monocytes/100 WBC (Bld) 7.5 % 0-10 [facility] Work Phone: Blood platelet mean volumeon 09-22-2021 Platelet mean volume (Bld) [Entitic vol] 10.9 fL 6.2-12.0 [facility] Work Phone: Determination of erythrocyte mean corpuscular volume (MCV)on 09-22-2021 MCV (RBC) [Entitic vol] 98.2 fL 81-99 [facility] Work Phone: Hematocrit Auto (Bld) [Volum e fraction]on 09-22-2021 Hematocrit (Bld) [Volume fraction] 44.6 % 37-47 [facility] Work Phone: Ketones Test strip Ql (U)on 09-22-2021 Ketones Ql (U) 15 mg/dl Negative [facility] Work Phone: Laboratory - Chemistry and C hemistry - challengeon 09-22-2021 CO2 [Moles/Vol] 30.0 mmol/L 21.0-32.0 [facility] Work Phone: Urea nitrogen/Creatinine [Mass ratio] 28.8 mg/mg 10-20 [facility] Work Phone: Laboratory - Hematology and Cell countson 09-22-2021 Erythrocyte distribution width (RBC) [Entitic vol] 49.3 fL 35.1-43.9 [facility] Work Phone: Erythrocyte distribution width (RBC) [Ratio] 13.5 % 11.6-14.6 [facility] Work Phone: Immature granulocytes/100 WBC (Bld) 0.300 % 0.0-0.9 [facility] Work Phone: Comment on above: IG% - Immature Granu locytes (promyelocytes, myelocytes and metamyelocytes) > 1% indicates that a LEFT SHIFT is Present. MCH (RBC) [Entitic mass] 31.3 pg 27.0-32.0 [facility] Work Phone: Nucleated RBC/100 WBC (Bld) [Ratio] 0 % 0-5 [facility] Work Phone: MCHC Auto (RBC) [Mass/Vol]on 09-22-2021 MCHC (RBC) [Mass/Vol] 31.8 g/dL 32-36 [facility] Work Phone: Mucus LM Ql (Urine sed)on Mucus Ql (Urine sed) 0 SEEN /hpf [facility] Work Phone: Nitrite Test strip Ql (U)on 09-22-2021 Nitrite Ql (U) Negative Negative [facility] Work Phone: No Panel Informationon 09-22 Estimated Creatinine Clearance Calc 48.08 ml/min [facility] Work Phone: Estimated GFR (MDRD) Amer 84 mL/min >60 [facility] Work Phone: Comment on above: GFR Calc Estimated GFR (MDRD) Non-Af Amer 70 mL/min >60 [facility] Work Phone: Comment on above: Non- GFR Calc Troponin I High Sensitivity 4 pg/mL 3.0-54.0 [facility] Work Phone: Comment on above: Please Note: New Ilana t Units and Gender Specific Reference Ranges. For more information see Policy Stat Procedure [place] High Sensitivity Troponin (TNIH) and attachments. Platelets bldon 09-22-2021 Platelets (Bld) [#/Vol] 300 10*3/uL 150-450 [facility] Work Phone: Protein Test strip Ql (U)on 09-22-2021 Protein Ql (U) Negative Negative [facility] Work Phone: Serum or plasma calcium ekta urement (mass/volume)on 09-22-2021 Calcium [Mass/Vol] 9.4 mg/dL 8.5-10.1 [facility] Work Phone: Serum or plasma creatinine m easurement (mass/volume)on 09-22-2021 Creatinine [Mass/Vol] 0.83 mg/dL 0.55-1.02 [facility] Work Phone: Comment on above: The validity of the calculated GFR & GFRAA in patients over 70 years has not been determined. Clinical correlation is essential. Serum or plasma urea nitroge n measurement (mass/volume)on 09-22-2021 Urea nitrogen [Mass/Vol] 24 mg/dL 7-18 [facility] Work Phone: Squamous epithelial cells de tection in urine sediment by light microscopyon 09-22-2021 Epithelial cells.squamous LM Ql (Urine sed) 0-5 SEEN /hpf 5-10 [facility] Work Phone: Thin prep Papanicolaou smear with manual screeningon 09-22-2021 Thin prep Papanicolaou smear with manual screening 8 5-15 [facility] Work Phone: Urine blood detectionon 09-06 RBC Ql (U) Negative Negative [facility] Work Phone: RBC Ql (U) 0 SEEN /hpf 0-5 [facility] Work Phone: Urine clarityon 09-22-2021 Clarity (U) Clear Clear [facility] Work Phone: Urine color determinationon 09-22-2021 Color (U) Yellow Yellow [facility] Work Phone: Urine glucose detectionon Glucose Ql (U) Normal mg/dl Normal [facility] Work Phone: Urine leukocyte esterase det ection by dipstickon 09-22-2021 Leukocyte esterase Test strip Ql (U) 500 /ul Negative [facility] Work Phone: Urine pHon 09-22-2021 pH (U) 6.0 [pH] 5.0 - 8.0 [facility] Work Phone: Urine sediment bacteria coun t by microscopy (number/high power field)on 09-22-2021 Bacteria LM.HPF (Urine sed) [#/Area] 0 /[HPF] None Seen [facility] Work Phone: Urine specific gravity measu rementon 09-22-2021 Specific gravity (U) [Rel density] 1.020 1.002-1.030 [facility] Work Phone: Urobilinogen Auto test strip Ql (U)on 09-22-2021 Urobilinogen Ql (U) Normal mg/dl Normal [facility] Work Phone: Vital Signs Date Time Vital Sign Value Performing Clinician Faci lity 10-15-2024 16:13-0400 Diastolic blood pressure 73 mm[Hg] Camilo Ibarra MD Work Phone: [facility] [email or web address] 10-15-2024 16:13-0400 Heart rate 79 /min Camilo Ibarra MD Work Phone: [facility] [email or web address] 10-15-2024 16:13-0400 Respiratory rate 18 /min Camilo Ibarra MD Work Phone: [facility] 10-15-2024 16:13-0400 SaO2% (BldA) [Mass fraction] 98 % Camilo Ibarra MD Work Phone: [facility] 10-15-2024 16:13-0400 Systolic blood pressure 132 mm[Hg] Camilo Ibarra MD Work Phone: [facility] 10-15-2024 15:53-0400 Body temperature 97 [degF] Camilo Ibarra MD Work Phone: [facility] 10-15-2024 13:54-0400 Body height 167.6 cm Camilo Ibarra MD Work Phone: [facility] 10-15-2024 13:54-0400 Body mass index (BMI) [Ratio] 21.79 kg/m2 Camilo Ibarra MD Work Phone: [facility] 10-15-2024 13:54-0400 Body weight 61.24 kg Camilo Ibarra MD Work Phone: [facility] 09-19-2024 13:25-0400 Body height 167.[address] Joe Bills MD Work Phone: [facility] 09-19-2024 13:25-0400 Body mass index (BMI) [Ratio] 21.9 kg/m2 Dr. Joe Bills MD Work Phone: [facility] 09-19-2024 13:25-0400 Body weight 61.[address] Joe Bills MD Work Phone: [facility] 09-19-2024 13:25-0400 Diastolic blood pressure 82 mm[Hg] Dr. Joe Bills MD Work Phone: [facility] 09-19-2024 13:25-0400 Heart rate 86 /min Dr. Joe Bills MD Work Phone: [facility] 09-19-2024 13:25-0400 Respiratory rate 16 /min Dr. Joe Bills MD Work Phone: [facility] 09-19-2024 13:25-0400 Systolic blood pressure 135 mm[Hg] Dr. Joe Bills MD Work Phone: [facility] 08-02-2022 08:52-0400 Body height 167.[address] Joe Bills Work Phone: [facility] 06-27-2022 13:30-0400 Diastolic blood pressure 58 mm[Hg] Dr. Joe Bills Work Phone: 0(841)065-214426 [address] 06-27-2022 13:30-0400 Systolic blood pressure 115 mm[Hg] Dr. Joe Bills Work Phone: 1(367)346-379044 [place] [address] 06-27-2022 13:12-0400 Body mass index (BMI) [Ratio] 22.1 kg/m2 Dr. Joe Bills Work Phone: 5(927)069-181371 [place] [address] 06-27-2022 13:12-0400 Body weight 62.[address] Joe Bills Work Phone: 3(711)474-736571 [place] [address] 06-27-2022 13:12-0400 Heart rate 87 /min Dr. Joe Bills Work Phone: 9(364)387-626926 [address] 06-27-2022 13:12-0400 Respiratory rate 16 /min Dr. Joe Bills Work Phone: 6(745)032-243426 [address] 04-04-2022 07:17-0500 Body height 167.[address] Joe Bills Work Phone: 9(087)058-454071 [place] [address] 04-04-2022 07:17-0500 Body weight 61.[address] Joe Bills Work Phone: 3(241)171-176026 [address] 03-23-2022 11:00-0500 Body height 167.[address] Joe Bills Work Phone: 8(485)180-954626 [address] 03-23-2022 11:00-0500 Body mass index (BMI) [Ratio] 21.9 kg/m2 Dr. Joe Bills Work Phone: 1(306)605-329371 [place] [address] 03-23-2022 11:00-0500 Body weight 61.[address] Joe Bills Work Phone: [facility] 03-23-2022 11:00-0500 Diastolic blood pressure 87 mm[Hg] Dr. Joe Bills Work Phone: [facility] 03-23-2022 11:00-0500 Heart rate 81 /min Dr. Joe Bills Work Phone: [facility] 03-23-2022 11:00-0500 Respiratory rate 16 /min Dr. Joe Bills Work Phone: [facility] 03-23-2022 11:00-0500 Systolic blood pressure 170 mm[Hg] Dr. Joe Bills Work Phone: [facility] 02-10-2022 14:06-0500 SaO2% (BldA) [Mass fraction] 98 % [facility] 02-10-2022 13:24-0500 Diastolic blood pressure 104 mm[Hg] [facility] 02-10-2022 13:24-0500 Heart rate 79 /min [facility] 02-10-2022 13:24-0500 Respiratory rate 17 /min [facility] 02-10-2022 13:24-0500 Systolic blood pressure 144 mm[Hg] [facility] 02-10-2022 11:02-0500 Body height 167.64 cm [facility] Work Phone: 02-10-2022 11:02-0500 Body mass index (BMI) [Ratio] 23.1 kg/m2 [facility] 02-10-2022 11:02-0500 Body temperature 97.8 [degF] [facility] 02-10-2022 11:02-0500 Body weight 65.2 kg [facility] 09-22-2021 20:20-0400 Diastolic blood pressure 76 mm[Hg] [facility] Work Phone: 09-22-2021 20:20-0400 Heart rate 85 /min [facility] Work Phone: 09-22-2021 20:20-0400 Respiratory rate 16 /min [facility] Work Phone: 09-22-2021 20:20-0400 SaO2% (BldA) [Mass fraction] 97 % [facility] Work Phone: 09-22-2021 20:20-0400 Systolic blood pressure 155 mm[Hg] [facility] Work Phone: 09-22-2021 17:21-0400 Body height 167.64 cm [facility] Work Phone: 09-22-2021 17:21-0400 Body mass index (BMI) [Ratio] 21.3 kg/m2 [facility] Work Phone: 09-22-2021 17:21-0400 Body temperature 97.2 [degF] [facility] Work Phone: 09-22-2021 17:21-0400 Body weight 59.87 kg [facility] Work Phone: Encounters Encounter Date Encounter Type Care Provider Facility Start: 10-15-2024 End: 10-15-2024 ambulatory [facility] Start: 10-15-2024 End: 10-15-2024 Subsequent hospital visit by physician Camilo Ibarra MD Work Phone: [facility] Endoscopy Comment on above: Change in bowel habi ts; Functional fecal incontinence Start: 09-23-2024 End: 09-23-2024 ambulatory [facility] Start: 09-23-2024 End: 09-23-2024 Subsequent hospital visit by physician ismael [id number] X-Ray 1 [facility] Comment on above: Change in bowel habi t; Full incontinence of feces Start: 09-19-2024 End: 09-19-[address] Edward Zarco MD -[facility] Work Phone: Start: 09-19-2024 End: 09-19-[address] Joe Bills MD Work Phone: -[facility] Start: 08-22-2024 End: 08-22-[address] Joe Bills MD Work Phone: -[facility] Start: 08-22-2024 End: 08-22-[address] Joe Bills MD -[facility] Work Phone: Start: 08-22-2024 End: 08-22-2024 ambulatory Joe Bills Facility:[facility] Start: 05-02-2024 End: 05-02-[address] Joe Bills MD Work Phone: [facility] Work Phone: Start: 05-02-2024 End: 05-02-[address] Joe Bills MD -Outpatient Breast Imaging Work Phone: Start: 05-02-2024 End: 05-02-2024 ambulatory Joe Bills Facility:[facility] Start: 04-19-2024 End: 04-19-[address] Joe Bills MD Work Phone: [facility] Work Phone: Start: 04-19-2024 End: 04-19-[address] Joe Bills MD -[facility] Start: 04-19-2024 End: 04-19-2024 ambulatory Joe Bills Facility:[facility] Start: 12-27-2023 End: 12-27-2023 ambulatory Joe Bills Facility:[facility] Start: 05-02-2023 End: 05-02-2023 ambulatory [facility] Work Phone: Start: 05-02-2023 End: 05-02-2023 Patient encounter procedure [facility]-Outpatient Breast Imaging Work Phone: Start: 04-17-2023 End: 04-17-2023 ambulatory [facility] Work Phone: Start: 04-17-2023 End: 04-17-2023 Patient encounter procedure [facility] Start: 08-02-2022 End: 08-02-[address] Joe Bills Work Phone: [facility] Work Phone: Start: 08-02-2022 End: 08-02-[address] Joe Bills Work Phone: [facility]-Outpatient Bone Densitometry Work Phone: Start: 06-27-2022 End: 06-27-[address] Joe Bills Work Phone: [facility] Work Phone: Start: 04-18-2022 End: 04-18-[address] Joe Bills Work Phone: [facility] Work Phone: Start: 04-18-2022 End: 04-18-[address] Joe Bills Work Phone: [facility] Start: 04-08-2022 End: 04-08-[address] Joe Bills Work Phone: [facility] Work Phone: Start: 04-08-2022 End: 04-08-[address] Joe Bills Work Phone: [facility]-Cardiovascular Services Start: 04-08-2022 Non-patient / Non-visit Dr. Jani Bills Work Phone: [facility] Start: 04-04-2022 Non-patient / Non-visit Dr. Jani Bills Work Phone: [facility] Start: 04-04-2022 End: 04-04-2022 Admission to same day surgery center Dr. Joe Bills Work Phone: [facility]d [facility] Developer/Special Procedures Start: 04-04-2022 End: 04-04-[address] Joe Bills Work Phone: [facility] Work Phone: Start: 03-23-2022 End: 03-23-[address] Joe Bills Work Phone: [facility] Work Phone: Start: 03-23-2022 End: 03-23-[address] Joe Bills Work Phone: [facility]-Laboratory Start: 03-23-2022 End: 03-23-[address] Joe Bills Work Phone: [facility] Start: 03-16-2022 Non-patient / Non-visit Dr. Jani Bills Work Phone: [facility] Start: 02-22-[address] Joe foss Work Phone: [facility]Cardi[facility] Start: 02-10-2022 End: 02-10-2022 Emergency department patient visit [facility]-Emergency Department Start: 01-06-2022 End: 01-06-2022 Patient encounter procedure [facility], [facility] Start: 09-22-2021 End: 09-22-2021 Emergency department patient visit [facility]-Emergency Department Procedures Date Procedure Procedure Detail Performing Clinician Start: 08-22-2024 Dual energy X-ray absorptiometry Dr. Joe Bills MD Work Phone: Start: 05-02-2024 Screening mammography Pablo Bills MD Work Phone: Start: 05-02-2023 Screening mammography Start: 08-02-2022 Dual energy X-ray absorptiometry Dr. Joe Bills Work Phone: Start: 02-10-2022 Plain chest X-ray Start: 09-22-2021 Plain chest X-ray Viral antigen assay Plan of Treatment Date Care Activity Detail Author Start: 08-04-2029 DTaP/Tdap/Td Vaccine s (2 - Td or Tdap) DTaP/Tdap/Td Vaccines (2 - Td or Tdap) [facility] Start: 12-12-2024 End: 12-12-2024 Patient encounter procedure 12/12/2024 1:30 PM EST Office Visit [facility] Col[facility] - [place] [address] [place] [address] Solange Kendall MD [address] [place], [place] [id number] [facility] [place] Start: 10-07-2024 COVID-19 Vaccine ( season) COVID-19 Vaccine ( season) [facility] Start: 10-07-2024 Influenza vaccination Influenz a Vaccine (#1) [facility] Start: 04-12-2024 COVID-19 Vaccine ( season) COVID-19 Vaccine ( season) [facility] Start: 02-07-2024 Medicare Advantage A nnual Wellness Visit Medicare Advantage Annual Wellness Visit [facility] Start: 02-10-2022 Troponin I measurement [facility] Work Phone: Start: 02-10-2022 [facility] Start: 09-22-2021 [facility] Work Phone: Start: 10-02-2014 Zoster Vaccines (2 of 3) Zoste r Vaccines (2 of 3) [facility] Start: 2003 Screening for osteoporosis Bone Dens ity Scan [facility] Start: 1950 Depression Screening Depression Scre ening [facility] Start: 1938 Annual wellness visit Welcome to Medicare Visit [facility] Start: 1938 Lipid panel Lipid Panel [facility] Start: 1938 Screening for osteoporosis Bone Dens ity Scan [facility] Catheterization of l eft heart [facility] Patient Education [facility] Work Phone: Patient referral [facility] Work Phone: Tissue exam [facility] Sy stem Work Phone: Comment on above: Release Upon [facility] [address] for 1 Occurrences starting 10/15/2024 [facility]onin [facility] Work [facility]: End: 09-23-2024 XR Abdomen Supine and Lateral-decubitus [facility] Service Area Work Phone: Comment on above: Once for 1 Occurrenc es starting 09/23/2024 until 09/23/2024 Immunizations Immunization Date Immunization Notes Care Provider Fa cility 10-14-2023 influenza virus vacc ine, unspecified formulation [facility] 1 [facility] Work Phone: 04-03-2020 Covid (Moderna) [facility] 03-06-2020 Covid ([facility] 10-07-2016 Influenza virus vaccine [facility] 11-04-2013 Influenza virus vaccine [facility] Payers Date Payer Category Payer Medicare (Managed Care) [employer] [place] [id number] 2024 Medicare HMO O MEDICARE ADV ANTAGE [id number] 2024 Medicare [id number] 2023 Self-pay [id number] 2023 Unknown [id number] 2013 Unknown [id number] 2003 Medicare [id number] 1938 Unknown [id number] Unknown [id number] Unknown [id number] Unknown [id number] Unknown [id number] Unknown [id number] Social History Date Type Detail Facility Start: 09-22-2021 End: 06-27-2022 Tobacco smoking status NHIS Unknown if ever smoked [facility] Start: 12-28-2016 None [facility] Start: 12-28-2016 Alone [facility] Start: 12-28-2016 Non-smoker [facility] Start: 1940 Sex Assigned At Female [facility] Start: 09-15-2023 End: 10-15-2024 Tobacco smoking status NHIS Never smoked tobacco (finding) [facility] Start: 04-28-2024 End: 09-09-2024 Sex Female (finding) [facility] Start: 1940 Sex assigned at Not on file [facility] Work Phone: Start: 09-23-2024 Sex Female [facility] Start: 10-15-2024 Gender identity Not on file [facility] Work Phone: Start: 10-15-2024 Tobacco use and exposure Smokeless tobacco non-user [facility] Start: 10-15-2024 Alcoholic beverage intake Current drinker of alcohol (finding) [facility] Start: 10-15-2024 History of Social function [facility] Start: 10-15-2024 Alcohol Comment rarely [facility] Mental Status Date Assessment Result Facility 02-10-2022 Cognitive function Voice/Name [facility] Work Phone: 09-22-2021 Cognitive function Level Of Cons ciousness Awake;Alert;Appropriate;Follow s Commands [facility] Work Phone: Clinical Notes 10-15-2024 Camilo Ibarra MD - 10/15/2024 3:19 PM EDTJackalyan Ibarra MD - 10/15/2024 3:19 PM EDTOp Note - Camilo Ibarra MD - 10/15/2024 3:19 PM EDT Note Date & Type Note Facility 10-15-2024 Note Patient: Marci randhawa Procedure Summary Date: 10/15/24 Room / Location: [place] [address] / [facility] Gastroenterology Anesthesia Start: 1534 Anesthesia Stop: 1553 Procedure: SIGMOIDOSCOPY, SCREENING Diagnosis: Change in bowel habits Functional fecal incontinence Providers: Camilo Ibarra MD Responsible Provider: Camden Aviles MD Anesthesia Type: TIVA ASA Status: 2 Anesthesia Type: TIVA Vitals Value Taken Time BP 132/73 10/15/24 16:13 Temp 36.1 ?C (97 ?F) 10/15/24 15:53 Pulse 79 10/15/24 16:13 Resp 18 10/15/24 16:13 SpO2 98 % 10/15/24 16:13 Anesthesia Post Evaluation Patient location during evaluation: PACU Patient participation: complete - patient participated Level of consciousness: alert Pain management: satisfactory to patient Airway patency: patent Dental Injury: no Cardiovascular status: acceptable, blood pressure returned to baseline and hemodynamically stable Respiratory status: acceptable and spontaneous ventilation Hydration status: euvolemic Nausea/Vomiting: controlled No notable events documented. Patient can be discharged once all PACU criteria has been met. [facility] 10-15-2024 Note Patient: Marci randhawa Procedure Summary Date: 10/15/24 Room / Location: [place] [address] / [facility] Gastroenterology Anesthesia Start: 1534 Anesthesia Stop: 1553 Procedure: SIGMOIDOSCOPY, SCREENING Diagnosis: Change in bowel habits Functional fecal incontinence Providers: Camilo Ibarra MD Responsible Provider: Camden Aviles MD Anesthesia Type: TIVA ASA Status: 2 Anesthesia Type: TIVA Vitals Value Taken Time BP 132/73 10/15/24 16:13 Temp 36.1 ?C (97 ?F) 10/15/24 15:53 Pulse 79 10/15/24 16:13 Resp 18 10/15/24 16:13 SpO2 98 % 10/15/24 16:13 Anesthesia Post Evaluation Patient participation: complete - patient participated Level of consciousness: alert Pain management: satisfactory to patient Multimodal analgesia pain management approach Airway patency: patent Two or more strategies used to mitigate risk of obstructive sleep apnea Respiratory status: acceptable Cardiovascular status: acceptable Hydration status: acceptable No notable events documented. MIPS #[id number] PONV Patient did not receive an inhalational anesthetic (XX430) MIPS # 424 Perioperative Temperature Management Anesthesia time was less than 60 minutes (4256F) MIPS #477 Multimodal Pain Management Not emergent case Patient was not administered multimodal pain management (G2149) Patient reports no pain in PACU (G2149) MIPS #404 Anesthesiology Smoking Abstinence The patient is not a current smoker (e.g. cigarette, cigar, pipe, e-cigarette/vaping/marijuana) If no stop here (XX404) I completed my handoff to the receiving clinician during which we: 1. Identified the patient 2. Identified the responsible provider 3. Reviewed the pertinent medical history 4. Discussed the surgical course 5. Reviewed intra-op anesthesia management and issues during anesthesia 6. Set expectations for post-procedure period 7. Allowed opportunity for questions and acknowledgement of understanding. [facility] 10-15-2024 History and physical note Patient: Marci Rich : 1940 Primary Care Physician: JOE BILLS MD History: The patient is a 84 y.o. lady here with change in bowel movements, fecal incontinence, and feelings of incomplete evacuation. Physical Exam: BP (!) 159/98 Pulse 94 Temp 36.8 C (98.2 F) (Temporal) Resp 18 Ht 5' 6" (1.676 m) Wt 135 lb (61.2 kg) SpO2 98% BMI 21.79 kg/m HEAD: Normal cephalic/atraumatic. CHEST: Rises equally on inspiration. ABDOMEN: Soft, nontender, and nondistended with normal bowel sounds. No Hepatosplemomegaly. NEURO: Alert and oriented times four. Patient moves all extremities and has gross sensation in all extremities. Assessment: Appropriate candidate Plan: Flex sig with biopsy Camilo Ibarra MD [employer] Work Phone: 10-15-2024 Note Patient: Marci randhawa : 1940 Primary Care Physician: JOE BILLS MD History: The patient is a 84 y.o. lady here with change in bowel movements, fecal incontinence, and feelings of incomplete evacuation. Physical Exam: BP (!) 159/98 Pulse 94 Temp 36.8 ?C (98.2 ?F) (Temporal) Resp 18 Ht 5' 6" (1.676 m) Wt 135 lb (61.2 kg) SpO2 98% BMI 21.79 kg/m? HEAD: Normal cephalic/atraumatic. CHEST: Rises equally on inspiration. ABDOMEN: Soft, nontender, and nondistended with normal bowel sounds. No Hepatosplemomegaly. NEURO: Alert and oriented times four. Patient moves all extremities and has gross sensation in all extremities. Assessment: Appropriate candidate Plan: Flex sig with biopsy Camilo Ibarra MD [facility] 10-15-2024 History and physical note Patient: Marci Rich : 1940 Primary Care Physician: JOE BILLS MD History: The patient is a 84 y.o. lady here with change in bowel movements, fecal incontinence, and feelings of incomplete evacuation. Physical Exam: BP (!) 159/98 Pulse 94 Temp 36.8 C (98.2 F) (Temporal) Resp 18 Ht 5' 6" (1.676 m) Wt 135 lb (61.2 kg) SpO2 98% BMI 21.79 kg/m HEAD: Normal cephalic/atraumatic. CHEST: Rises equally on inspiration. ABDOMEN: Soft, nontender, and nondistended with normal bowel sounds. No Hepatosplemomegaly. NEURO: Alert and oriented times four. Patient moves all extremities and has gross sensation in all extremities. Assessment: Appropriate candidate Plan: Flex sig with biopsy Camilo Ibarra MD documented in this encounter [facility] 10-15-2024 [facility] Name: Marci Rich Procedure Date: 10/15/2024 3:19 PM Gender: Female Date of : 1940 Age: 84 Admit Type: Outpatient Note Status: Finalized Endoscopist: Camilo Ibarra MD, [id number] Procedure: Flexible Sigmoidoscopy Indications: Incontinence of feces Findings: Multiple small-mouthed diverticula were found in the sigmoid colon. Normal mucosa was found in the sigmoid colon. Biopsies for histology were taken with a cold forceps for evaluation of microscopic colitis. An area of erythematous mucosa was found in the distal rectum. This was biopsied with a cold forceps for histology. Verification of patient identification for the specimen was done. Estimated blood loss was minimal. Impression: - Diverticulosis in the sigmoid colon. - Normal mucosa in the sigmoid colon. Biopsied. - Erythematous mucosa in the distal rectum. Biopsied. Recommendation: - Patient has a contact number available for emergencies. The signs and symptoms of potential delayed complications were discussed with the patient. Return to normal activities tomorrow. Written discharge instructions were provided to the patient. - Await pathology results. - Resume previous diet. - Discharge patient to home (with escort). Referring MD: Joe Bills Medicines: Monitored Anesthesia Care Procedure: After obtaining informed consent, the endoscope was passed under direct vision. Throughout the procedure, the patient's blood pressure, pulse, and oxygen saturations were monitored continuously. The Endoscope was introduced through the anus and advanced to the sigmoid colon to 40cm. The flexible sigmoidoscopy was accomplished without difficulty. The patient tolerated the procedure well. The quality of the bowel preparation was excellent prep to 30cm then solid stool encountered 30-40cm. Complications: No immediate complications. Estimated blood loss: Minimal. Procedure Code(s): --- Professional --- 05433, Sigmoidoscopy, flexible; with biopsy, single or multiple --- Technical --- 50381, Sigmoidoscopy, flexible; with biopsy, single or multiple Diagnosis Code(s): --- Professional --- R15.9, Full incontinence of feces K57.30, Diverticulosis of large intestine without perforation or abscess without bleeding --- Technical --- R15.9, Full incontinence of feces K57.30, Diverticulosis of large intestine without perforation or abscess without bleeding CPT copyright 2021 [employer]. All rights reserved. The codes documented in this report are preliminary and upon service center specialist review may be revised to meet current compliance requirements. Attending Participation: I personally performed the entire procedure. Camilo Ibarra MD 10/15/2024 4:00:06 PM This report has been signed electronically. Number of Addenda: 0 Note Initiated On: 10/15/2024 3:19 PM documented in this encounter [facility] 10-15-2024 Note Endoscopy Center- [facility] Patient Name: Marci Rich Procedure Date: 10/15/2024 3:19 PM Gender: Female Date of : 1940 Age: 84 Admit Type: Outpatient Note Status: Finalized Endoscopist: Camilo Ibarra MD, [id number] Procedure: Flexible Sigmoidoscopy Indications: Incontinence of feces Findings: Multiple small-mouthed diverticula were found in the sigmoid colon. Normal mucosa was found in the sigmoid colon. Biopsies for histology were taken with a cold forceps for evaluation of microscopic colitis. An area of erythematous mucosa was found in the distal rectum. This was biopsied with a cold forceps for histology. Verification of patient identification for the specimen was done. Estimated blood loss was minimal. Impression: - Diverticulosis in the sigmoid colon. - Normal mucosa in the sigmoid colon. Biopsied. - Erythematous mucosa in the distal rectum. Biopsied. Recommendation: - Patient has a contact number available for emergencies. The signs and symptoms of potential delayed complications were discussed with the patient. Return to normal activities tomorrow. Written discharge instructions were provided to the patient. - Await pathology results. - Resume previous diet. - Discharge patient to home (with escort). Referring MD: Joe Bills Medicines: Monitored Anesthesia Care Procedure: After obtaining informed consent, the endoscope was passed under direct vision. Throughout the procedure, the patient's blood pressure, pulse, and oxygen saturations were monitored continuously. The Endoscope was introduced through the anus and advanced to the sigmoid colon to 40cm. The flexible sigmoidoscopy was accomplished without difficulty. The patient tolerated the procedure well. The quality of the bowel preparation was excellent prep to 30cm then solid stool encountered 30-40cm. Complications: No immediate complications. Estimated blood loss: Minimal. Procedure Code(s): --- Professional --- 77345, Sigmoidoscopy, flexible; with biopsy, single or multiple --- Technical --- 10392, Sigmoidoscopy, flexible; with biopsy, single or multiple Diagnosis Code(s): --- Professional --- R15.9, Full incontinence of feces K57.30, Diverticulosis of large intestine without perforation or abscess without bleeding --- Technical --- R15.9, Full incontinence of feces K57.30, Diverticulosis of large intestine without perforation or abscess without bleeding CPT copyright 2021 [employer]. All rights reserved. The codes documented in this report are preliminary and upon service center specialist review may be revised to meet current compliance requirements. Attending Participation: I personally performed the entire procedure. Camilo Ibarra MD 10/15/2024 4:00:06 PM This report has been signed electronically. Number of Addenda: 0 Note Initiated On: 10/15/2024 3:19 PM [facility] 10-15-2024 [facility] Name: Marci Rich Procedure Date: 10/15/2024 3:19 PM Gender: Female Date of : 1940 Age: 84 Admit Type: Outpatient Note Status: Finalized Endoscopist: Camilo Ibarra MD, [id number] Procedure: Flexible Sigmoidoscopy Indications: Incontinence of feces Findings: Multiple small-mouthed diverticula were found in the sigmoid colon. Normal mucosa was found in the sigmoid colon. Biopsies for histology were taken with a cold forceps for evaluation of microscopic colitis. An area of erythematous mucosa was found in the distal rectum. This was biopsied with a cold forceps for histology. Verification of patient identification for the specimen was done. Estimated blood loss was minimal. Impression: - Diverticulosis in the sigmoid colon. - Normal mucosa in the sigmoid colon. Biopsied. - Erythematous mucosa in the distal rectum. Biopsied. Recommendation: - Patient has a contact number available for emergencies. The signs and symptoms of potential delayed complications were discussed with the patient. Return to normal activities tomorrow. Written discharge instructions were provided to the patient. - Await pathology results. - Resume previous diet. - Discharge patient to home (with escort). Referring MD: Joe Bills Medicines: Monitored Anesthesia Care Procedure: After obtaining informed consent, the endoscope was passed under direct vision. Throughout the procedure, the patient's blood pressure, pulse, and oxygen saturations were monitored continuously. The Endoscope was introduced through the anus and advanced to the sigmoid colon to 40cm. The flexible sigmoidoscopy was accomplished without difficulty. The patient tolerated the procedure well. The quality of the bowel preparation was excellent prep to 30cm then solid stool encountered 30-40cm. Complications: No immediate complications. Estimated blood loss: Minimal. Procedure Code(s): --- Professional --- 71971, Sigmoidoscopy, flexible; with biopsy, single or multiple --- Technical --- 44815, Sigmoidoscopy, flexible; with biopsy, single or multiple Diagnosis Code(s): --- Professional --- R15.9, Full incontinence of feces K57.30, Diverticulosis of large intestine without perforation or abscess without bleeding --- Technical --- R15.9, Full incontinence of feces K57.30, Diverticulosis of large intestine without perforation or abscess without bleeding CPT copyright 2021 [employer]. All rights reserved. The codes documented in this report are preliminary and upon service center specialist review may be revised to meet current compliance requirements. Attending Participation: I personally performed the entire procedure. Camilo Ibarra MD 10/15/2024 4:00:06 PM This report has been signed electronically. Number of Addenda: 0 Note Initiated On: 10/15/2024 3:19 PM [employer] 10-15-2024 Note Patient: Marci randhawa Procedure Information Date/Time: 10/15/24 1400 Procedure: SIGMOIDOSCOPY, SCREENING - Flex Sig - 30 Minutes Location: [place] [address] / [facility] Gastroenterology Providers: Camilo Ibarra MD Relevant Problems No relevant active problems Past Medical History: Past Medical History: No date: Arthritis No date: HTN (hypertension) No date: Tachycardia Comment: atrial Past Surgical History: Past Surgical History: No date: BREAST SURGERY 10/15/2024: FLEXIBLE SIGMOIDOSCOPY; N/A Comment: Performed by Camilo Ibarra MD at [facility] ENDOSCOPY No date: TOTAL HIP ARTHROPLASTY; Bilateral Social History: TOBACCO: reports that she has never smoked. She has never used smokeless tobacco. ETOH: reports current alcohol use. Social History Substance and Sexual Activity Drug Use Never Family History: Family History[1] Screening: Postmenopausal Clinical information reviewed: Tobacco Allergies Meds Med Hx Surg Hx OB Status Fam Hx Soc Hx Physical Exam Airway Mallampati: II Neck ROM: full Mouth Open: normal Cardiovascular Dental Pulmonary Abdominal Anesthesia Plan Any family history or previous problems with anesthesia no We discussed risks, benefits, alternatives and likelihood of success with the Patient. ASA 2 TIVA Any family history or previous problems with anesthesia no The patient is not a current smoker. patient is NPO appropriate BRITTNY Screening Labs: No results found for: "WBC", "HGB", "HCT", "MCV", "PLT" No results found for: "SODIUM", "NA", "POTASSIUM", "K", "CHLORIDE", "CL", "CO2", "BUN", "CREATININE", "GLUCOSE", "CALCIUM", "PROT", "BILIRUBINFL", "ALKPHOS", "AST", "ALT", "EGFR", "GLOB" Pain Score: 0 - No pain No echocardiogram results found for the past 14 days No results found for this or any previous visit. Equipment Requests: Additional Equipment Requests [1] No family history on file. 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 All your labs, chest x-ray and EKG were normal. This is not cardiac chest pain.[facility] Work Phone: Hospital Discharge instructions* Attachments The following attachments cannot be sent through Care Everywhere. * Flexible Sigmoidoscopy (Turkish) * Moderate Sedation in Adults Discharge Instructions (Turkish) [facility] for [facility] (narrative)No reason for referral information availableWFostoria City [facility] Work Phone: Reason for visit Narrative* Imaging (Routine) - Pending Review Specialty Diagnoses / Procedures Referred By Moy low Referred To Contact Radiology Diagnoses Change in bowel habit Full incontinence of feces Procedures XR abdomen 2 views supine and erect or decub XR abdomen 2 views w chest 1 view Camilo Ibarra MD [address] [address] Phone: tel: fax: Referral ID Status Reason Start Date Expiration Date Visits Requested Visits Authorized [id number] Pending Review Perform Procedure 09/23/2024 10/24/2025 1 1 [facility] Work Phone: Reason for visit Narrative* Auth/Cert (Routine) Specialty Diagnoses / Procedures Referred By Moy low Referred To Contact Diagnoses Change in bowel habits Functional fecal incontinence Procedures AK SIGMOIDOSCOPY FLX DX W/COLLJ SPEC BR/WA IF PFRMD SIGMOIDOSCOPY, SCREENING Camilo Ibarra MD [address] [facility] [facility] [address] [place] [address] Phone: tel: fax: [facility] Endoscopy [address] [place] [address] Phone: tel: Referral ID Status Reason Start Date Expiration Date Visits Re quested Visits Authorized [id number] 1 1 [facility] Chief Complaint and Reason for Visit Chief Complaint GENERAL ILLNESS Chief Complaint cp Chief Complaint cp Blood Flow Screening - Juan Jose Amb Documentation ATRIAL TACHYCARDIA (BILLS) INT LABS Reason for Visit Atrial tachycardia Chest pain Chief Complaint cp Blood Flow Screening - Juan Jose Amb Documentation ATRIAL TACHYCARDIA (BILLS) INT LABS CP Reason for Visit Atrial tachycardia Chest pain Chief Complaint cp Blood Flow Screening - Juan Jose Amb Documentation ATRIAL TACHYCARDIA (BILLS) INT LABS CP RULE OUT DVT RT ARM Reason for Visit Atrial tachycardia Chest pain Chief Complaint 3 M FU OSTEO Reason for Visit Atrial tachycardia Chest pain Chief Complaint SCREENING Chief Complaint Admit Date SCREENING May 02, 2024 8:3 3am Chief Complaint Admit Date SCREENING May 02, 2024 8:3 3am Unspecified menopausal and perimenopausa l disorder August 22, 2024 8:51am Chief Complaint Admit Date Unspecified menopausal and perimenopausa l disorder August 22, 2024 8:51am 9 M FU September 19, 2024 1: 23pm Family History No Family History Records Found Relationship Condition Age at Onset Recorded Date/T hitesh Not Specified Myocardial infarction Unknown Malignant neoplasm Unknown Relationship Condition Age at Onset Recorded Date/T hitesh Not Specified Malignant neoplasm Unknown father Myocardial infarction Unknown sister Arthritis Unknown mother Malignant neoplasm of colon 68 Malignant neoplasm of breast Unknown Advance Directives No Advanced Directives Records Found Advance Directive Response Recorded Date/ Time Advance Directives Yes May 06 015 1:21pm Living Will Yes September 22 5:33pm Power of Six Horse Hitch Driver Yes September 22 5:33pm Name of Medical Power of Six Horse Hitch Driver STEP SON September 22, 2021 5:33pm Advance Directive Response Recorded Date/ Time Advance Directives Yes May 06 015 12:21pm Living Will Yes [address], 202 2 4:33pm Power of Six Horse Hitch Driver Yes September 22 022 4:33pm Name of Medical Power of Six Horse Hitch Driver STEP SON September 22, 2021 4:33pm Advance Directive Response Recorded Date/ Time Advance Directives Yes May 06 015 12:21pm Living Will No February 10 11:07am Power of Six Horse Hitch Driver No February 10 023 11:07am Advance Directive Response Recorded Date/ Time Advance Directives on File Yes 2022 7:17am Name of Medical Power of Six Horse Hitch Driver Avinash Rich (step son) April 04, 2022 7:17am Advance Directives Yes March 7:17am Living Will Yes April 04 7:17am Power of Six Horse Hitch Driver Yes April 04, 2022 7:17am Advance Directive Response Recorded Date/ Time Advance Directives on File Yes 2022 8:17am Name of Medical Power of Six Horse Hitch Driver Avinash Rich (step son) April 04, 2022 8:17am Advance Directives Yes March 8:17am Living Will Yes April 04 8:17am Power of Six Horse Hitch Driver Yes April 04, 2022 8:17am Advance Directive Response Recorded Date/ Time Advance Directives Yes March 8:17am Living Will Yes April 04 8:17am Power of Six Horse Hitch Driver Yes April 04, 2022 8:17am Advance Directive Response Recorded Date/ Time Advance Directives Yes March 8:17am Date Activated Date Inactivated Comments 10/15/2024 2:38 PM 10/15/2024 6:21 PM Summary Purpose Additional Source Comments Goals (unrecognized section and content) Goals may be documented in a n alternate sectionGoals may be documented in an alternate sectionGoals may be documented in an alternate sectionGoals may be documented in an alternate sectionGoals may be documented in an alternate sectionGoals may be documented in an alternate sectionGoals may be documented in an alternate sectionGoals may be documented in an alternate sectionGoals may be documented in an alternate sectionGoals may be documented in an alternate sectionGoals may be documented in an alternate sectionGoals may be documented in an alternate sectionGoals may be documented in an alternate sectionGoals may be documented in an alternate section Care Teams (unrecognized sec tion and content) Team Status: Active Member Role Status Dates Dr. Roman Pulido MD Family Provider Active Dr. Joe Bills MD Primary Care Provider Active Team Status: Inactive Member Role Status Dates Dr. Joe Bills MD Primary Care Provider, Referring Provider Active Dr. Edward Zarco MD Attending Provider Active Team Status: Active Member Role Status Dates Dr. Joe Bills MD Primary Care Provider Active Alice Gordon Attending Provider Active Team Status: Inactive Member Role Status Dates Dr. Joe Bills MD Primary Care Provi amos, Attending Provider, Referring Provider Active Team Status: Inactive Member Role Status Dates Dr. Joe Bills MD Primary Care Provider Active Dr. Scot Roe MD Attending Provider, Emergency Pro vider Active Team Status: Active Member Role Status Dates Dr. Joe Bills MD Primary Care Provider Active Self Referred Attending Provider Active Team Status: Inactive Member Role Status Dates Dr. Joe Bills MD Primary Care Provider Active Dr. Edward Zarco MD Attending Provider, Referring Pro vider Active Team Status: Active Member Role Status Dates Dr. Joe Bills MD Primary Care Provider Active Dr. Edward Zarco MD Attending Provider Active Team Status: Active Member Role Status Dates Dr. Joe Bills MD Primary Care Provider Active Dr. Avinash Benavides MD Attending Provider Active Team Status: Inactive Member Role Status Dates Dr. Joe Bills MD Primary Care Provider Active Jenny Caceres PA, PA Attending Provider Active Team Status: Inactive Member Role Status Dates Dr. Joe Bills MD Primary Care Provider, Attending Provider Active Team Status: Inactive Member Role Status Dates Dr. Joe Bills MD Primary Care Provider, Referring Provider Active Edita Aldridge ULTIMATE HOOPS REFEREE, ULTIMATE HOOPS REFEREE-C Attending Provider Active Team Status: Inactive Member Role Status Dates Dr. Joe Bills MD Primary Care Provider Active Start: April 19, 2024 End: April 19, 2024 Dr. Joe Bills MD Attending Provider Active Start: April 19, 2024 End: April 19, 2024 Dr. Joe Bills MD Referring Provider Active Start: April 19, 2024 End: April 19, 2024 Team Status: Active Member Role Status Dates Dr. Joe Bills MD Primary Care Provider Active Team Status: Inactive Member Role Status Dates Dr. Joe Bills MD Primary Care Provider Active Start: May 02, 2024 End: May 02, 2024 Dr. Joe Bills MD Attending Provider Active Start: May 02, 2024 End: May 02, 2024 Dr. Joe Bills MD Referring Provider Active Start: May 02, 2024 End: May 02, 2024 Team Status: Active Member Role/Relationship Status Dates Dr. Joe Bills MD Primary Care Provider Active Team Status: Inactive Member Role/Relationship Status Dates Dr. Joe Bills MD Primary Care Provider Active Start: May 02, 2024 End: May 02, 2024 Dr. Joe Bills MD Attending Provider Active Start: May 02, 2024 End: May 02, 2024 Dr. Joe Bills MD Referring Provider Active Start: May 02, 2024 End: May 02, 2024 Team Status: Inactive Member Role/Relationship Status Dates Dr. Joe Bills MD Primary Care Provider Active Start: August 22, 2024 End: August 22, 2024 Dr. Joe Bills MD Attending Provider Active Start: August 22, 2024 End: August 22, 2024 Dr. Joe Bills MD Referring Provider Active Start: August 22, 2024 End: August 22, 2024 Team Status: Inactive Member Role/Relationship Status Dates Dr. Joe Bills MD Primary Care Provider Active Start: August 22, 2024 End: August 22, 2024 Dr. Joe Bills MD Attending Provider Active Start: August 22, 2024 End: August 22, 2024 Dr. Joe Bills MD Referring Provider Active Start: August 22, 2024 End: August 22, 2024 Team Status: Inactive Member Role/Relationship Status Dates Dr. Joe Bills MD Primary Care Provider Active Start: September 19, 2024 End: September 19, 2024 Dr. Joe Bills MD Referring Provider Active Start: September 19, 2024 End: September 19, 2024 Dr. Edward Zarco MD Attending Provider Active S tart: September 19, 2024 End: September 19, 2024 Medical Accounting Clerk Relationship Specialty Start Date End Date Joe Bills MD [address] [place] [address] PCP - General Family Medicine 09/09/24 INFORMATION SOURCE (unrecogn ized section and content) DATE CREATED AUTHOR 10/04/2024 [facility] DATE CREATED AUTHOR AUTHOR'S ORGANIZ ATION 10/17/2024 [facility] DATE CREATED AUTHOR AUTHOR'S ORGANIZ ATION 10/17/2024 [facility] [facility] Scheduled Active and Recently Administ ered Medications (unrecognized section and content) Medication Order 10/13/2024 10/14/2024 10/15/2024 sodium chloride 0.9% (NS) flush 10 mL 10 mL, IntraVENous, Every 12 hours scheduled (2 times per day), First dose on Mon10/15/24 at 2100 sodium chloride 0.9% (NS) flush 10 mL 10 mL, IntraVENous, Every 12 hours scheduled (2 times per day), First dose on Mon10/15/24 at 2100, Preprocedure PRN Medication Order 10/13/2024 10/14/2024 10/15/2024 ondansetron (Zofran) injection 4 mg 4 mg, IntraVENous, Once PRN, nausea, vomiting, Starting on Mon10/15/24 at 1437, For 1 dose, Preprocedure sodium chloride 0.9 % infusion 5-250 mL/hr, IntraVENous, PRN, if patient receiving piggyback infusions and maintenance fluids are not ordered OR KVO fluids to protect IV site / prevent frequent line interruptions/ long duration, Starting on Mon10/15/24 at 1437, For piggyback infusion, administer at same rate as piggyback for a total of 25 mL. Enter 25 mL into dose field and piggyback rate into rate field of order. If piggyback is infusing at a rate less than 100 mL/hr, enter 25 mL into dose field and 100 mL/hr into rate field of order. For KVO fluids, enter rate of 20 mL/hr or less into rate field of order. sodium chloride 0.9 % infusion 5-250 mL/hr, IntraVENous, PRN, if patient receiving piggyback infusions and maintenance fluids are not ordered OR KVO fluids to protect IV site / prevent frequent line interruptions/ long duration, Starting on Mon10/15/24 at 1437, Preprocedure, For piggyback infusion, administer at same rate as piggyback for a total of 25 mL. Enter 25 mL into dose field and piggyback rate into rate field of order. If piggyback is infusing at a rate less than 100 mL/hr, enter 25 mL into dose field and 100 mL/hr into rate field of order. For KVO fluids, enter rate of 20 mL/hr or less into rate field of order. 1559 (Stopped - Prov ider: Ana Loaiza RN) sodium chloride 0.9% (NS) flush 10 mL 10 mL, IntraVENous, PRN, line care, Starting on Mon10/15/24 at 1437, After every IV line use sodium chloride 0.9% (NS) flush 10 mL 10 mL, IntraVENous, PRN, line care, Starting on Mon10/15/24 at 1437, Preprocedure, After every IV line use FOR RECORDS PERTAINING TO PATIENTS WHO ARE OR HAVE BEEN ENROLLED IN A CHEMICAL DEPENDENCY/SUBSTANCEABUSE PROGRAM, SOME INFORMATION MAY BE OMITTED. This clinical summary was aggregated from multiple sources. Caution should be exercised in using it in the provision of clinical care. This summary normalizes information from multiple sources, and as a consequence, information in this document may materially change the coding, format and clinical context of patient data. In addition, data may be omitted in some cases. CLINICAL DECISIONS SHOULD BE BASED ON THE PRIMARY CLINICAL RECORDS. [facility]. provides no warranty or guarantee of the accuracy or completeness of information in this document.
[2024-11-28 08:52] LABS: AST(SGOT) 28 U/L (<=31); Alanine Aminotransfer ALT/SGPT 13 U/L (<=34); Albumin, Serum 4.1 g/dL (3.4-4.8); Alkaline Phosphatase 72 U/L (35-104); Anion Gap 9 (5-15); BUN 22 mg/dL (4-19); BUN/Creat Ratio 27.2 RATIO (10-20); Calcium,Total 9.2 mg/dL (7.6-11.0); Carbon Dioxide 26.1 mmol/L (21.0-32.0); Chloride 104 mmol/L (98-108); Estimated Creatinine Clearance 47.25 ml/min (50-250); Globulin 2.7 g/dL (2.2-4.2); Glucose 112 mg/dL (70-99); Lipase 37 U/L (13-75); Potassium 4.3 mmol/L (3.3-5.1)
[2024-11-28 11:10] LABS: Mucous, Urine 0 SEEN /hpf (<or=2+)
[2024-11-28 11:14] LABS: Color, Urine Yellow (Yellow); Glucose, Dipstick Normal (Normal); Ketone-Dipstick 5 mg/dl (Negative); Leukocyte Esterase-Dipstick 25 /ul (Negative); Nitrite-Dipstick Negative (Negative); Occult Blood-Urine 50 /ul (Negative); Protein-Dipstick 15 mg/dl (Negative); Specific Gravity, Urine 1.015 (1.002-1.030); Urine Bilirubin Dipstick Negative (Negative)
[2024-11-28 11:20] LABS: Red Blood Cells-Urine 0-5 SEEN /hpf (0-5); Squamous Epithelial Cells - UA 0-5 SEEN /hpf (5-10)
[2024-11-28 12:10] VITALS: BP 119/58; PULSE 81; RESP 18; TEMP 36.9; O2SAT 100
== END 2024-11-28 12:14 | disposition home or self-care (01) ==
PROVIDERS: Emergency Provider Emergency Medicine; PCP Family Medicine; Visit Provider Emergency Medicine
DX: R19.7 Diarrhea, unspecified (principal); R11.2 Nausea with vomiting, unspecified; E78.00 Pure hypercholesterolemia, unspecified; D72.829 Elevated white blood cell count, unspecified; R10.84 Generalized abdominal pain; M79.7 Fibromyalgia; Z79.899 Other long term (current) drug therapy
CPT/HCPCS: 74177; 80053; 81001; 83690; 85025; 96361; 96374; 99284; Q9967; A4216; J2405